=== PATIENT | male | born 1965 | race Caucasian/White ===

== ENCOUNTER 2017-06-08 20:28 | Emergency (ER) | payer OTHER ==
[2017-06-08] MEDS ORDERED: Ondansetron INJ* 2 MG/ML VIAL IV ONE (21:33)
[2017-06-08] MEDS ORDERED: NS 0.9% 1000 ML* 1,000 ML IV ONE (21:33)
[2017-06-08] MEDS ORDERED: Morphine INJ* 4 MG/ML 1 ML SYRINGE IV ONE (21:33)
--- NOTE | 2017-06-08 22:05 | RAD ---
Indication: Chest and abdominal pain. Asthma. Comparison: June 14, 2009 CT. Technique: Upright AP 2148 hours Report: Clear lungs and pleural spaces. Negative for pneumothorax. The heart, pulmonary vasculature, and mediastinal contours are unremarkable. Unremarkable osseous structures and soft tissue contours. IMPRESSION: No evidence for acute intrathoracic disease.
[2017-06-08 22:18] LABS: Hematocrit 42 % (42-52); Hemoglobin 13.6 g/dl (14.0-18.0); Mean Corpuscular HGB Conc 33 g/dl (31-36); Mean Corpuscular Hemoglobin 26 pg (27-31); Mean Corpuscular Volume 80 fL (80-94); Mean Platelet Volume 8 um3 (7.4-10.4); Red Blood Count 5.24 10^6/ul (4.0-5.4); Red Cell Distribution Width 15 % (10.5-15); White Blood Count 17.6 10^3/ul (3.5-10.8)
[2017-06-08 22:34] LABS: Troponin I 0.02 ng/mL (<0.04)
[2017-06-08 22:35] LABS: Albumin 4.2 g/dL (3.2-5.2); BUN/Creatinine Ratio 18.8 (8-20); Calcium 9.7 mg/dL (8.6-10.3); EGFR African American 131.6 (>60); EGFR Non-African American 102.3 (>60); Globulin 3.4 g/dL (2-4); Potassium 4.2 mmol/L (3.5-5.0); Total Bilirubin 0.4 mg/dL (0.2-1.0); Total Protein 7.6 g/dL (6.4-8.9)
[2017-06-09 00:54] LABS: Urine Bacteria Absent (Absent); Urine Bilirubin Negative (Negative); Urine Glucose Negative (Negative); Urine Nitrite Negative (Negative)
[2017-06-09] MEDS ORDERED: Iodixanol* (CONTRAST) 320 MG/ML 100 ML SDV IV ONE (01:07)
[2017-06-09] MEDS ORDERED: Amitriptyline TAB* 10 MG ONE (03:41)
[2017-06-09] MEDS ORDERED: Amitriptyline TAB* 10 MG PO ONE (03:44)
[2017-06-09 04:03] VITALS: BP 143/83
--- NOTE | 2017-06-09 04:22 | ED ---
Mya Harrison Rebecca, scribed for Genesis Franksuel on 06/08/17 at 2134 . Abdominal Pain/Male - HPI Summary HPI Summary: Pt is a 51 y/o M BIBA who presents to ED c/o abdominal pain. Pain is diffuse and began upon waking up, at its worst tonight between 1730 and 1930 when it radiated to the chest and bilateral UE. Sx aggravated and alleviated by nothing. Currently, pain is resolved, ranked 0/10 upon triage. Additionally c/o diaphoresis and N/V/D. States that he has been experiencing continuous diarrhea. No known PMHx gallbladder problems. Prior incidences of abdominal pain but without chest radiation. Additionally notes that he has been unable to tolerate any of his daily medications today. - History of Current Complaint Chief Complaint: EDChestPainROMI Stated Complaint: CHEST AND ABD PAIN Time Seen by Provider: 06/08/17 20:46 Hx Obtained From: Patient Onset/Duration: Still Present Severity Currently: None Pain Intensity: 0 Pain Scale Used: 0-10 Numeric Location: Diffuse Radiates: Yes Radiates to: Chest, Other - Bilateral UE Aggravating Factor(s): Nothing Alleviating Factor(s): Nothing Associated Signs And Symptoms: Positive: Diaphoresis, Nausea, Vomiting, Diarrhea - Allergies/Home Medications Allergies/Adverse Reactions: Allergies Allergy/AdvReac Type Severity Reaction Status Date / Time Ibuprofen Allergy Severe ABD Verified 06/08/17 20:38 PAIN/GI UPSET DECLAMYCIN Allergy Severe Anaphylatic Uncoded 06/08/17 20:38 Shock PMH/Surg Hx/FS Hx/Imm Hx Endocrine/Hematology History: Reports: Hx Diabetes Denies: Hx Thyroid Disease Cardiovascular History: Denies: Hx Hypertension, Hx Pacemaker/ICD Respiratory History: Reports: Hx Asthma Denies: Hx Chronic Obstructive Pulmonary Disease (COPD) GI History: Reports: Other GI Disorders - mild nausea Denies: Hx Ulcer Musculoskeletal History: Reports: Other Musculoskeletal History - see surgical hx Sensory History: Denies: Hx Hearing Aid Neurological History: 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, also fx skull Psychiatric History: Denies: Hx Panic Disorder - Surgical History Surgery Procedure, Year, and Place: RIGHT ANKLE SURGERY, BACK, FACE- COSMETIC RELATED TO HEAD INJURY, 2 HERNIA SURGERIES, ARM SURGERY, LEG, CRANIOTOMY W/ DRAINAGE - 30 YRS AGO AND NECK SURG RELATED TO FX - HAD TO BE IN A HALO FOR AWHILE Infectious Disease History: No Infectious Disease History: Denies: Hx Clostridium Difficile, Hx Hepatitis, Hx Human Immunodeficiency Virus (HIV), Hx of Known/Suspected MRSA, Hx Shingles, Hx Tuberculosis, Hx Known/ Suspected VRE, Hx Known/Suspected VRSA, History Other Infectious Disease, Traveled Outside the [place] in Last 30 Days - Family History Known Family History: Positive: Hypertension, Diabetes, Other - Hernias - Social History Alcohol Use: None Substance Use Type: Reports: None, Prescribed Smoking Status (MU): Former Smoker Type: Cigarettes Amount Used/How Often: A FEW CIGS/DAY Length of Time of Smoking/Using Tobacco: 32+ YEARS - TRYING TO QUIT Review of Systems Positive: Skin Diaphoresis Positive: Abdominal Pain - Diffuse with radiation to the chest and bilateral UE - resolved, Vomiting, Diarrhea, Nausea All Other Systems Reviewed And Are Negative: Yes Physical Exam - Summary Physical Exam Summary: Appearance: Well appearing, no pain distress Skin: warm, dry, reflects adequate perfusion Head/face: normal Eyes: EOMI, REGLA ENT: normal Neck: supple, nontender Respiratory: CTA, breath sounds present Cardiovascular: RRR, pulses symmetrical Abdomen: tenderness in the RLQ and RUQ, soft Bowel: present Musculoskeletal: normal, strength/ROM intact Neuro: normal, sensory motor intact, A&Ox3 Triage Information Reviewed: Yes Vital Signs On Initial Exam: Initial Vitals Temp Pulse Resp BP Pulse Ox 98.8 F 92 22 117/78 95 06/08/17 20:36 06/08/17 20:36 06/08/17 20:36 06/08/17 20:36 06/08/17 20:36 Vital Signs Reviewed: Yes - Maximus Coma Scale Coma Scale Total: 15 Diagnostics - Vital Signs Vital Signs Temp Pulse Resp BP Pulse Ox 06/08/17 20:37 94 20 117/78 95 06/08/17 20:36 98.8 F 92 22 117/78 95 - Laboratory Result Diagrams: 06/08/17 22:08 06/08/17 22:08 Lab Statement: Any lab studies that have been ordered have been reviewed, and results considered in the medical decision making process. - Radiology CXR Xray Interpretation: No Acute Changes - No evidence for acute intrathoracic disease. ED physician reviewed radiology report and agrees. Radiology Interpretation Completed By: Radiologist - CT CT Abd/Pel CT Interpretation Completed By: Radiologist - Dilated gallbladder, consider ultrasound if there is a concern for acute cholecystitis. No bowel obstruction, colitis or free air. Normal appendix. Unremarkab;e pancreas and kidneys. Negligible ascites. Hernia repair lower right pelvis. Small sclerotic focus incidentally noted in left iliac bone. ED physician reviewed radiology report and agrees. - Ultrasound No standard instances Ultrasound Interpretation Completed By: Radiologist - US Abdomen: Unremarkable gallbladder, right kidney and visualized aorta and pancreas. No biliary dilatation, common duct 3-5 mm but not well seen due to bowel gas. Coarse liver echotexture, possibly steatosis. ED physician reviewed radiology report and agrees. - EKG 2051 Cardiac Rate: NL - 83 bpm EKG Rhythm: Sinus Rhythm EKG Interpretation: No acute changes Re-Evaluation - Re-Evaluation First Eval Re-Evaluation Time: 04:01 Change: Improved Comment: Discussed results with the pt who report shtta he is feeling much better. Abdominal Pain Fem Course/Dx - Course Assessment/Plan: Pt is a 51 y/o M BIBA who presents to ED c/o diffuse abdominal pain that began upon waking up, at its worst tonight between 1730 and 1930 when it radiated to the chest and bilateral UE. Currently, pain is resolved, ranked 0 /10 upon triage. Additionally c/o diaphoresis and N/V/D. States that he has been experiencing continuous diarrhea. No known PMHx gallbladder problems. Prior incidences of abdominal pain but without chest radiation. Additionally notes that he has been unable to tolerate any of his daily medications today. CT Abd/Pel and US findings above. EKG is sinus rhythm with no acute changes. CT Abd/Pel and US results above.Patient has atypical CP, unlikely ACS at present. Advised to f/u with PCP in 3 days for a stress test as an outpatient. - Diagnoses Differential Diagnosis/HQI/PQRI: Appendicitis, Diverticulitis, Other - HI, Cholecystitis Provider Diagnoses: Atypical chest pain, Nonspecific abdominal pain - Provider Notifications Discussed Care Of Patient With: Nima Ulloa Time Discussed With Above Provider: 03:55 Instructed by Provider To: Other - Making him aware of the pt. Discharge - Discharge Plan Condition: Stable Disposition: HOME Patient Education Materials: Chest Pain (ED), Acute Abdominal Pain (ED) Referrals: Liliam Quiros MD [Primary Care Provider] - 3 Days The documentation as recorded by the Mya scott Rebecca accurately reflects the service I personally performed and the decisions made by , Casey Franks.
--- NOTE | 2017-06-09 07:13 | RAD ---
INDICATION: Right upper quadrant pain COMPARISON: None TECHNIQUE: Longitudinal and transverse scans of the right upper quadrant were obtained. Doppler interrogation of the hepatic and portal venous system was performed. FINDINGS: Liver: The liver is normal in size. There is hepatic steatosis. There are no masses . The liver measures 17 cm in cephalocaudal dimension. Vessels: There is normal hepatic and portal venous flow. Bile ducts: There is no evidence of intrahepatic or extrahepatic ductal dilatation. The common duct measures 0.3cm. Gallbladder: The gallbladder is mildly distended. The sonographic appearance of the gallbladder is otherwise normal. There is no evidence of cholelithiasis, thickening of the gallbladder wall, or pericholecystic fluid. Pancreas: The visualized pancreas appears normal Right kidney: The right kidney is normal in size and echogenicity. There are no masses or calculi. There is no evidence of hydronephrosis. The right kidney measures 13.0 x 4.2 x 5.9 cm. IVC and aorta: The aorta and superior vena cava appear normal. Fluid: There is no ascites. Other: None. IMPRESSION: 1. Mildly distended gallbladder. 2. Hepatic steatosis.
--- NOTE | 2017-06-09 09:29 | RAD ---
Indication: Abdominal pain. Contrast: Administered 141.0 ml of VISIPAQUE 320 mg/ml. CT of the abdomen and pelvis was performed after oral and IV contrast administration. The lung bases demonstrate no pleural fluid, nodules or masses. Heart is of normal size without evidence of pericardial effusion. The liver is normal in size. No focal lesions or intrahepatic duct dilatation is noted. The gallbladder is distended. The common duct demonstrates no evidence of filling defect. The pancreas demonstrates no mass or pancreatic duct dilatation. The spleen is normal in size. No adrenal lesions are noted. The kidneys demonstrate symmetric nephrograms without focal lesions. No retroperitoneal lymphadenopathy is noted. No dilated loops of bowel are noted. CT of the pelvis demonstrates no retroperitoneal or pelvic lymphadenopathy. There is diverticulosis of the sigmoid colon without evidence of diverticulitis. The patient is status post hysterectomy. The appendix is normal. No definite hernias are identified. Urinary bladder and prostate are otherwise unremarkable. IMPRESSION: No abnormal masses or fluid collections are identified. No hernias are noted. Distended gallbladder without definite evidence of pericholecystic fluid or wall thickening.
== END 2017-06-09 04:20 | disposition home or self-care (01) ==
LOC: ED 20:28
DX: R10.9 Unspecified abdominal pain (principal); R07.89 Other chest pain
CPT/HCPCS: 36415; 71010; 74177; 76705; 80053; 81003; 81015; 83605; 83690; 84484; 85025; 85610; 85730; 87086; 93005; 99284; A9270-GY; J2270; J2405; Q9967

== ENCOUNTER 2021-01-23 06:47 | Inpatient (IN) ==
[2021-01-23] MEDS ORDERED: Morphine 2 MG/ML SYRINGE IV ONE (07:26)
[2021-01-23] MEDS ORDERED: Piperacillin/Tazobac ADVAN 3.375 GM in NS 0.9% 100 ml BAG 100 ML IV ONE (07:34)
[2021-01-23] MEDS ORDERED: Piperacillin/Tazobac 3.375 GM BAG ONE (07:45)
[2021-01-23 08:00] LABS: ABS Eosinophils 0.3 10^3/ul (0-0.6); ABS Lymphocytes 2.1 10^3/ul (1.0-4.8); ABS Monocytes 0.6 10^3/ul (0-0.8); ABS Neutrophils 5.9 10^3/ul (1.5-7.7); Eosinophil % 3.7 %; Hematocrit 31 % (42-52); Hemoglobin 9.7 g/dL (14.0-18.0); Lymphocyte % 23.3 %; Mean Corpuscular HGB Conc 32 g/dL (31-36); Mean Corpuscular Hemoglobin 26 pg (27-31); Mean Corpuscular Volume 81 fL (80-94); Mean Platelet Volume 7.2 fL (7.4-10.4); Platelet Count 349 10^3/uL (150-450); Red Blood Count 3.78 10^6 /uL (4.18-5.48); Red Cell Distribution Width 17 % (10-15); White Blood Count 9.1 10^3/uL (3.5-10.8)
[2021-01-23 08:14] LABS: INR 1.02 (0.82-1.09)
[2021-01-23 08:17] LABS: Albumin 3.6 g/dL (3.2-5.2); Albumin/Globulin Ratio 1.2 (1-3); Calcium 8.3 mg/dL (8.6-10.3); EGFR African American 127.4 (>60); EGFR Non-African American 105.3 (>60); Globulin 2.9 g/dL (2-4); Potassium 3.3 mmol/L (3.5-5.0); Total Bilirubin 0.3 mg/dL (0.2-1.0); Total Protein 6.5 g/dL (6.4-8.9)
[2021-01-23] MEDS ORDERED: Dextrose 50% Syringe 50 ml 25 GM/50 ML SYRINGE IV PUSH PRN (10:30)
[2021-01-23] MEDS ORDERED: Zosyn per Pharmacy NOTE FOLLOW UP SCH (11:00)
[2021-01-23] MEDS: Morphine 2 MG/ML SYRINGE IV PRN ×2 (11:24→16:14)
[2021-01-23] MEDS: NS 0.9% 1000 ml BAG 1,000 ML IV SCH ×2 (13:19→23:31)
[2021-01-23] MEDS: ZOSYN 3.375 GM Q8H per EXTENDED INFUSION IV SCH ×3 (13:19→22:56)
[2021-01-23] MEDS: Senna TAB 8.6 mg TAB PO SCH (18:02)
[2021-01-23] MEDS: KCL 20 MEQ/100 ML IVPREMIX 20 MEQ/100 ML BAG IV SCH ×2 (18:02→22:16)
[2021-01-23] MEDS: Heparin 5000 UNITS/ML 1 mL VIAL SUBCUT SCH ×2 (21:54→22:56)
[2021-01-24] MEDS: ZOSYN 3.375 GM Q8H per EXTENDED INFUSION IV SCH ×3 (05:28→21:49)
[2021-01-24 09:17] LABS: ABS Basophils 0.1 10^3/ul (0-0.2); ABS Eosinophils 0.3 10^3/ul (0-0.6); ABS Lymphocytes 2.6 10^3/ul (1.0-4.8); ABS Monocytes 0.7 10^3/ul (0-0.8); ABS Neutrophils 4.2 10^3/ul (1.5-7.7); Eosinophil % 4.2 %; Hematocrit 25 % (42-52); Hemoglobin 7.9 g/dL (14.0-18.0); Mean Corpuscular HGB Conc 32 g/dL (31-36); Mean Corpuscular Hemoglobin 26 pg (27-31); Mean Corpuscular Volume 81 fL (80-94); Mean Platelet Volume 7.3 fL (7.4-10.4); Platelet Count 263 10^3/uL (150-450); Red Blood Count 3.04 10^6 /uL (4.18-5.48); Red Cell Distribution Width 17 % (10-15); White Blood Count 7.9 10^3/uL (3.5-10.8)
[2021-01-24] MEDS: NS 0.9% 1000 ml BAG 1,000 ML IV SCH (09:20)
[2021-01-24 09:33] LABS: Anion Gap 2 mmol/L (2-11); Blood Urea Nitrogen 12 mg/dL (6-24); CO2 Carbon Dioxide 30 mmol/L (22-32); Calcium 7.4 mg/dL (8.6-10.3); Chloride 107 mmol/L (101-111); EGFR African American 118.5 (>60); EGFR Non-African American 97.9 (>60); Glucose 83 mg/dL (70-100); Potassium 3.8 mmol/L (3.5-5.0); Sodium 139 mmol/L (135-145)
[2021-01-24 14:02] LABS: ABS Eosinophils 0.3 10^3/ul (0-0.6); ABS Monocytes 0.6 10^3/ul (0-0.8); ABS Neutrophils 4.3 10^3/ul (1.5-7.7); Eosinophil % 4.3 %; Hematocrit 26 % (42-52); Hemoglobin 8.2 g/dL (14.0-18.0); Mean Corpuscular HGB Conc 32 g/dL (31-36); Mean Corpuscular Hemoglobin 26 pg (27-31); Mean Corpuscular Volume 81 fL (80-94); Mean Platelet Volume 7.3 fL (7.4-10.4); Platelet Count 286 10^3/uL (150-450); Red Blood Count 3.21 10^6 /uL (4.18-5.48); Red Cell Distribution Width 16 % (10-15); White Blood Count 7.2 10^3/uL (3.5-10.8)
[2021-01-24] MEDS: Heparin 5000 UNITS/ML 1 mL VIAL SUBCUT SCH ×2 (14:09→21:50)
[2021-01-24 14:11] LABS: Activated Partial Thrombo Time 26.6 seconds (26.0-38.0); INR 1.07 (0.82-1.09)
[2021-01-24 14:48] LABS: EGFR African American 109.2 (>60); EGFR Non-African American 90.2 (>60)
[2021-01-24 15:03] LABS: Total Iron Binding Capacity 330 mcg/dL (250-450); Transferrin 236 mg/dL (203-362)
[2021-01-24 15:05] LABS: Ferritin 9.2 ng/mL (24-336)
[2021-01-24 15:09] LABS: Folate > 20.00 ng/mL (5.90-24.80)
[2021-01-24 15:12] LABS: Vitamin B12 71 pg/mL (180-914)
[2021-01-24 15:52] LABS: % Iron Saturation 6 % (15-55); Iron < 20 ug/dL (50-212); Unsaturated Iron Binding < 315 ug/dL
[2021-01-24] MEDS: Senna TAB 8.6 mg TAB PO SCH (17:40)
[2021-01-24] MEDS: Morphine 2 MG/ML SYRINGE IV PRN ×2 (17:43→22:12)
[2021-01-25] MEDS: Morphine 2 MG/ML SYRINGE IV PRN ×3 (02:39→22:34)
[2021-01-25 05:02] LABS: ABS Eosinophils 0.3 10^3/ul (0-0.6); ABS Lymphocytes 2.7 10^3/ul (1.0-4.8); ABS Monocytes 0.6 10^3/ul (0-0.8); ABS Neutrophils 4.1 10^3/ul (1.5-7.7); Eosinophil % 4.2 %; Hematocrit 25 % (42-52); Lymphocyte % 34.3 %; Mean Corpuscular HGB Conc 32 g/dL (31-36); Mean Corpuscular Hemoglobin 26 pg (27-31); Mean Corpuscular Volume 80 fL (80-94); Mean Platelet Volume 7.3 fL (7.4-10.4); Platelet Count 278 10^3/uL (150-450); Red Blood Count 3.12 10^6 /uL (4.18-5.48); Red Cell Distribution Width 17 % (10-15); White Blood Count 7.8 10^3/uL (3.5-10.8)
[2021-01-25] MEDS: ZOSYN 3.375 GM Q8H per EXTENDED INFUSION IV SCH ×3 (06:12→21:53)
[2021-01-25] MEDS: Heparin 5000 UNITS/ML 1 mL VIAL SUBCUT SCH ×3 (06:14→21:53)
[2021-01-25] MEDS: Senna TAB 8.6 mg TAB PO SCH (17:01)
[2021-01-25] MEDS ORDERED: Iodixanol (CONTRAST) 320 MG/ML 100 ML SDV IV ONE (18:32)
[2021-01-26 04:37] LABS: ABS Eosinophils 0.4 10^3/ul (0-0.6); ABS Lymphocytes 2.3 10^3/ul (1.0-4.8); ABS Monocytes 0.6 10^3/ul (0-0.8); ABS Neutrophils 4.5 10^3/ul (1.5-7.7); Eosinophil % 4.8 %; Hematocrit 25 % (42-52); Hemoglobin 7.9 g/dL (14.0-18.0); Mean Corpuscular HGB Conc 32 g/dL (31-36); Mean Corpuscular Hemoglobin 26 pg (27-31); Mean Corpuscular Volume 81 fL (80-94); Mean Platelet Volume 7.1 fL (7.4-10.4); Nucleated Red Blood Cells % 0.1; Platelet Count 275 10^3/uL (150-450); Red Blood Count 3.06 10^6 /uL (4.18-5.48); Red Cell Distribution Width 16 % (10-15); White Blood Count 7.8 10^3/uL (3.5-10.8)
[2021-01-26 04:54] LABS: C Reactive Protein 11.95 mg/L (<8.01); Calcium 7.9 mg/dL (8.6-10.3); EGFR African American 90.1 (>60); EGFR Non-African American 74.4 (>60); Potassium 3.6 mmol/L (3.5-5.0)
[2021-01-26] MEDS: ZOSYN 3.375 GM Q8H per EXTENDED INFUSION IV SCH ×3 (05:39→21:29)
[2021-01-26] MEDS: Heparin 5000 UNITS/ML 1 mL VIAL SUBCUT SCH ×3 (05:39→21:29)
[2021-01-26] MEDS: Senna TAB 8.6 mg TAB PO SCH (18:20)
[2021-01-26] MEDS: Morphine 2 MG/ML SYRINGE IV PRN (21:39)
[2021-01-27 04:56] LABS: ABS Eosinophils 0.4 10^3/ul (0-0.6); ABS Lymphocytes 2.5 10^3/ul (1.0-4.8); ABS Monocytes 0.6 10^3/ul (0-0.8); ABS Neutrophils 3.6 10^3/ul (1.5-7.7); Eosinophil % 5.6 %; Hematocrit 25 % (42-52); Hemoglobin 8.1 g/dL (14.0-18.0); Lymphocyte % 34.8 %; Mean Corpuscular HGB Conc 32 g/dL (31-36); Mean Corpuscular Hemoglobin 26 pg (27-31); Mean Corpuscular Volume 80 fL (80-94); Mean Platelet Volume 7.6 fL (7.4-10.4); Platelet Count 293 10^3/uL (150-450); Red Blood Count 3.13 10^6 /uL (4.18-5.48); Red Cell Distribution Width 17 % (10-15); White Blood Count 7.1 10^3/uL (3.5-10.8)
[2021-01-27] MEDS: Heparin 5000 UNITS/ML 1 mL VIAL SUBCUT SCH ×2 (05:32→13:48)
[2021-01-27] MEDS: ZOSYN 3.375 GM Q8H per EXTENDED INFUSION IV SCH ×2 (05:32→13:45)
[2021-01-27] MEDS: Morphine 2 MG/ML SYRINGE IV PRN (10:50)
[2021-01-27 11:16] VITALS: BP 123/67
== END 2021-01-27 17:30 | disposition home or self-care (01) | DRG 349 ==
LOC: ED 06:47 → SSU 10:22
PROVIDERS: ADMIT Hospitalist; ATTEND Internal Medicine

== ENCOUNTER 2022-02-27 18:48 | Inpatient (IN) ==
[2022-02-27 20:35] LABS: ABS Eosinophils 0.2 10^3/ul (0-0.6); ABS Lymphocytes 1.9 10^3/ul (1.0-4.8); ABS Monocytes 1.2 10^3/ul (0-0.8); ABS Neutrophils 16.5 10^3/ul (1.5-7.7); Eosinophil % 1.2 %; Hematocrit 28 % (42-52); Hemoglobin 8.6 g/dL (14.0-18.0); Lymphocyte % 9.5 %; Mean Corpuscular HGB Conc 31 g/dL (31-36); Mean Corpuscular Hemoglobin 21 pg (27-31); Mean Corpuscular Volume 67 fL (80-94); Mean Platelet Volume 7.5 fL (7.4-10.4); Platelet Count 468 10^3/uL (150-450); Red Blood Count 4.16 10^6 /uL (4.18-5.48); Red Cell Distribution Width 20 % (10-15); White Blood Count 19.9 10^3/uL (3.5-10.8)
[2022-02-27 21:22] LABS: ALT 5 U/L (7-52); AST 17 U/L (13-39); Albumin 3.1 g/dL (3.2-5.2); Albumin/Globulin Ratio 0.7 (1-3); Alkaline Phosphatase 81 U/L (35-149); Anion Gap 6 mmol/L (2-11); Blood Urea Nitrogen 17 mg/dL (6-24); CO2 Carbon Dioxide 28 mmol/L (22-32); Calcium 8.6 mg/dL (8.6-10.3); Chloride 96 mmol/L (101-111); Globulin 4.4 g/dL (2-4); Glucose 117 mg/dL (70-100); Potassium 3.5 mmol/L (3.5-5.0); Sodium 130 mmol/L (135-145); Total Protein 7.5 g/dL (6.4-8.9); eGFR CKD-EPI 88.9 (>60)
[2022-02-27 21:25] LABS: CRP High Sensitivity > 80.00 mg/L (<2.00)
[2022-02-27] MEDS ORDERED: Piperacillin/Tazobac ADVAN 3.375 GM in NS 0.9% 100 ml BAG 100 ML IV ONE (21:59)
[2022-02-27] MEDS ORDERED: Vancomycin 1,250 MG in NS 0.9% 250 ml 250 ML IVPB ONE (22:00)
[2022-02-27] MEDS ORDERED: Lactated Ringers 1000 ml BAG 1,000 ML IV ONE (22:00)
[2022-02-27] MEDS ORDERED: NS 0.9% 1000 ml BAG 1,000 ML IV ONE (22:02)
[2022-02-27] MEDS ORDERED: Ondansetron 4 mg VIAL 2 MG/ML 2 ml VIAL IV ONE (22:03)
[2022-02-27] MEDS ORDERED: Zosyn per Pharmacy NOTE FOLLOW UP SCH (23:45)
[2022-02-27 23:48] LABS: Urine Appearance Clear; Urine Bilirubin Negative (Negative); Urine Blood 2+ (Negative); Urine Color Straw; Urine Glucose Negative (Negative); Urine Ketones Negative (Negative); Urine Nitrite Negative (Negative); Urine Protein Negative (Negative); Urine Specific Gravity 1.005 (1.002-1.030); Urine Urobilinogen Negative (Negative)
[2022-02-27] MEDS ORDERED: Ondansetron ODT 4 mg TAB 4 MG TAB SL PRN (23:58)
[2022-02-28 00:01] LABS: Urine Bacteria Absent (Absent); Urine Red Blood Cell Trace(0-2/hpf) (Absent); Urine Squamous Epithelial Cell Present (Absent); Urine White Blood Cell Trace(0-5/hpf) (Absent)
[2022-02-28] MEDS: Enoxaparin 40 MG/0.4 ML SYR SUBCUT SCH ×2 (00:33→22:12)
[2022-02-28] MEDS ORDERED: Famotidine IV 10 MG/ML 2 ml VIAL (20 mg) IV SLOW PU ONE (01:01)
[2022-02-28] MEDS ORDERED: Dextrose 50% Syringe 50 ml 25 GM/50 ML SYRINGE IV PUSH PRN (01:28)
[2022-02-28] MEDS ORDERED: HYDROmorphone 1 MG/1 ML SYRINGE IV PRN (01:33)
[2022-02-28] MEDS ORDERED: Lactated Ringers 1000 ml BAG 1,000 ML IV SCH (02:00)
[2022-02-28] MEDS ORDERED: PIPERACILLIN IV ×2 (02:15→05:00)
[2022-02-28] MEDS ORDERED: TAZOBACTAM IV ×2 (02:15→05:00)
[2022-02-28] MEDS ORDERED: Lorazepam PYXIS KEY PRN (02:50)
[2022-02-28] MEDS ORDERED: LORazepam 2 mg VIAL 1 ml IV PUSH PRN (02:50)
[2022-02-28 03:06] LABS: Creatine Kinase 102 U/L (10-223)
[2022-02-28] MEDS: NS 0.9% 1000 ml BAG 1,000 ML IV SCH (04:25)
[2022-02-28 05:11] LABS: Urine Osmo 184 mOsm/kg (150-1150)
[2022-02-28] MEDS ORDERED: ZOSYN 3.375 GM Q8H per EXTENDED INFUSION IV SCH (08:30)
[2022-02-28] MEDS ORDERED: ZOSYN 3.375 GM Q6H IV SCH (18:00)
[2022-02-28] MEDS ORDERED: Vancomycin 1500 MG IV - x ONCE IVPB ONE (18:30)
[2022-02-28] MEDS ORDERED: Vancomycin per Pharmacy 1 EA NOTE FOLLOW UP PRN (18:46)
[2022-02-28] MEDS: Piperacillin/Tazobactam VIAL 4.5 GM in NS 0.9% 100 ml BAG 100 ML IVPB SCH (21:16)
[2022-03-01] MEDS: NS 0.9% 1000 ml BAG 1,000 ML IV SCH (01:09)
[2022-03-01] MEDS: Piperacillin/Tazobactam VIAL 4.5 GM in NS 0.9% 100 ml BAG 100 ML IVPB SCH ×4 (01:09→17:31)
[2022-03-01] MEDS: Vancomycin 1000 MG in NS 0.9% 250 ML IVPB SCH ×3 (02:37→17:23)
[2022-03-01 06:12] LABS: ABS Basophils 0.1 10^3/ul (0-0.2); ABS Eosinophils 0.3 10^3/ul (0-0.6); ABS Monocytes 0.8 10^3/ul (0-0.8); ABS Neutrophils 4.8 10^3/ul (1.5-7.7); Eosinophil % 4.3 %; Hematocrit 24 % (42-52); Hemoglobin 7.5 g/dL (14.0-18.0); Lymphocyte % 25.1 %; Mean Corpuscular HGB Conc 32 g/dL (31-36); Mean Corpuscular Hemoglobin 22 pg (27-31); Mean Corpuscular Volume 68 fL (80-94); Mean Platelet Volume 7.9 fL (7.4-10.4); Platelet Count 376 10^3/uL (150-450); Red Blood Count 3.47 10^6 /uL (4.18-5.48); Red Cell Distribution Width 20 % (10-15)
[2022-03-01 06:23] LABS: Anion Gap 6 mmol/L (2-11); Blood Urea Nitrogen 16 mg/dL (6-24); CO2 Carbon Dioxide 29 mmol/L (22-32); Calcium 7.8 mg/dL (8.6-10.3); Chloride 106 mmol/L (101-111); Glucose 98 mg/dL (70-100); Magnesium 1.5 mg/dL (1.9-2.7); Potassium 4.2 mmol/L (3.5-5.0); Sodium 141 mmol/L (135-145); eGFR CKD-EPI 85.8 (>60)
[2022-03-01] MEDS ORDERED: Magnesium Sulf 4 GM/100 ML IV 4,000 MG/100 ML BAG IVPB ONE (06:28)
[2022-03-01 07:27] LABS: Total Iron Binding Capacity 231 mcg/dL (250-450); Transferrin 165 mg/dL (203-362)
[2022-03-01 07:31] LABS: % Iron Saturation 9 % (15-55); Iron < 20 ug/dL (50-212); Unsaturated Iron Binding 211 ug/dL
[2022-03-01 07:48] LABS: Ferritin 77.3 ng/mL (24-336)
[2022-03-01] MEDS ORDERED: Senna TAB 8.6 mg TAB PO PRN (08:54)
[2022-03-01] MEDS ORDERED: Magnesium Hydroxide LIQ 30 ML UDC PO PRN (08:54)
[2022-03-01] MEDS ORDERED: Polyethylene Glycol 3350 17 GM PACKET PO PRN (08:54)
[2022-03-01] MEDS: Magnesium Hydroxide LIQ 30 ML UDC PO SCH ×2 (12:37→20:48)
[2022-03-01] MEDS: Enoxaparin 40 MG/0.4 ML SYR SUBCUT SCH (20:48)
[2022-03-01] MEDS: HYDROmorphone 1 MG/1 ML SYRINGE IV PRN (21:52)
[2022-03-02] MEDS: Piperacillin/Tazobactam VIAL 4.5 GM in NS 0.9% 100 ml BAG 100 ML IVPB SCH ×2 (01:11→05:46)
[2022-03-02] MEDS: Vancomycin 1000 MG in NS 0.9% 250 ML IVPB SCH ×2 (02:52→10:54)
[2022-03-02 05:34] LABS: Calcium 7.9 mg/dL (8.6-10.3); Magnesium 1.9 mg/dL (1.9-2.7); Potassium 4.7 mmol/L (3.5-5.0); eGFR CKD-EPI 98.2 (>60)
[2022-03-02 05:42] LABS: Hematocrit 24 % (42-52); Hemoglobin 7.3 g/dL (14.0-18.0); Mean Corpuscular HGB Conc 31 g/dL (31-36); Mean Corpuscular Hemoglobin 21 pg (27-31); Mean Corpuscular Volume 68 fL (80-94); Mean Platelet Volume 7.7 fL (7.4-10.4); Platelet Count 360 10^3/uL (150-450); Red Blood Count 3.49 10^6 /uL (4.18-5.48); Red Cell Distribution Width 20 % (10-15); White Blood Count 6.9 10^3/uL (3.5-10.8)
[2022-03-02] MEDS ORDERED: Vancomycin Trough Check NOTE FOLLOW UP ONE (09:30)
[2022-03-02] MEDS: Magnesium Hydroxide LIQ 30 ML UDC PO SCH ×2 (09:46→21:18)
[2022-03-02] MEDS: HYDROmorphone 1 MG/1 ML SYRINGE IV PRN ×3 (10:05→21:18)
[2022-03-02] MEDS ORDERED: NS 0.9% 500 ml BAG 500 ML IV ONE (11:04)
[2022-03-02] MEDS ORDERED: ZOSYN 3.375 GM Q6H - Intermittant 30 min Infusion IV SCH (12:00)
[2022-03-02] MEDS ORDERED: Vancomycin per Pharmacy 1 EA NOTE FOLLOW UP PRN (13:23)
[2022-03-02] MEDS ORDERED: Bupivacaine 0.25% SDV PF 10 ML VIAL INJ ONE (13:27)
[2022-03-02] MEDS: Cefepime 2 GM in Dextrose 2 GM/50 ML BAG IV SCH (15:11)
[2022-03-02] MEDS ORDERED: Lidocaine 1% VIAL 10 MG/ML VIAL ONE (15:11)
[2022-03-02] MEDS: Vancomycin 750 MG in NS 0.9% 250 ML IVPB SCH (19:29)
[2022-03-03] MEDS: Cefepime 2 GM in Dextrose 2 GM/50 ML BAG IV SCH ×2 (02:59→15:06)
[2022-03-03] MEDS: Vancomycin 750 MG in NS 0.9% 250 ML IVPB SCH ×3 (04:14→21:33)
[2022-03-03] MEDS: Enoxaparin 40 MG/0.4 ML SYR SUBCUT SCH (05:44)
[2022-03-03] MEDS: HYDROmorphone 1 MG/1 ML SYRINGE IV PRN ×2 (05:50→15:08)
[2022-03-03 06:45] LABS: Calcium 8.2 mg/dL (8.6-10.3); Magnesium 1.7 mg/dL (1.9-2.7); Potassium 4.7 mmol/L (3.5-5.0); eGFR CKD-EPI 100.9 (>60)
[2022-03-03 06:56] LABS: ABS Eosinophils 0.5 10^3/ul (0-0.6); ABS Lymphocytes 1.9 10^3/ul (1.0-4.8); ABS Monocytes 0.9 10^3/ul (0-0.8); ABS Neutrophils 4.4 10^3/ul (1.5-7.7); Eosinophil % 5.8 %; Hematocrit 25 % (42-52); Hemoglobin 7.6 g/dL (14.0-18.0); Lymphocyte % 24.4 %; Mean Corpuscular HGB Conc 31 g/dL (31-36); Mean Corpuscular Hemoglobin 21 pg (27-31); Mean Corpuscular Volume 68 fL (80-94); Mean Platelet Volume 7.7 fL (7.4-10.4); Platelet Count 436 10^3/uL (150-450); Red Blood Count 3.63 10^6 /uL (4.18-5.48); Red Cell Distribution Width 20 % (10-15); White Blood Count 7.8 10^3/uL (3.5-10.8)
[2022-03-03] MEDS: Magnesium Hydroxide LIQ 30 ML UDC PO SCH (07:44)
[2022-03-03] MEDS: Lidocaine PATCH 5% PATCH TRANSDERM SCH ×2 (10:31→10:35)
[2022-03-03] MEDS: Iron Sucrose 200 MG in NS 0.9% 100 ml BAG 100 ML IVPB SCH (10:31)
[2022-03-04] MEDS: Cefepime 2 GM in Dextrose 2 GM/50 ML BAG IV SCH (03:00)
[2022-03-04] MEDS: Vancomycin 750 MG in NS 0.9% 250 ML IVPB SCH (05:15)
[2022-03-04] MEDS: Enoxaparin 40 MG/0.4 ML SYR SUBCUT SCH (06:43)
[2022-03-04 08:01] LABS: Hematocrit 28 % (42-52); Hemoglobin 8.5 g/dL (14.0-18.0); Mean Corpuscular HGB Conc 31 g/dL (31-36); Mean Corpuscular Hemoglobin 21 pg (27-31); Mean Corpuscular Volume 67 fL (80-94); Mean Platelet Volume 7.2 fL (7.4-10.4); Platelet Count 527 10^3/uL (150-450); Red Blood Count 4.09 10^6 /uL (4.18-5.48); Red Cell Distribution Width 20 % (10-15)
[2022-03-04 08:15] LABS: Blood Urea Nitrogen 10 mg/dL (6-24); CO2 Carbon Dioxide 31 mmol/L (22-32); Calcium 8.4 mg/dL (8.6-10.3); Chloride 101 mmol/L (101-111); Glucose 85 mg/dL (70-100); Magnesium 1.8 mg/dL (1.9-2.7); Sodium 138 mmol/L (135-145); eGFR CKD-EPI 99.5 (>60)
[2022-03-04] MEDS: Lidocaine PATCH 5% PATCH TRANSDERM SCH (08:18)
[2022-03-04 08:22] LABS: Anion Gap 6 mmol/L (2-11)
[2022-03-04] MEDS: Iron Sucrose 200 MG in NS 0.9% 100 ml BAG 100 ML IVPB SCH (08:58)
[2022-03-04] MEDS ORDERED: Vancomycin Trough Check NOTE FOLLOW UP ONE (11:30)
[2022-03-04 11:33] VITALS: BP 153/81
[2022-03-04] MEDS ORDERED: Nicotine PATCH 14 MG/24 HR PATCH TRANSDERM SCH (12:00)
[2022-03-04 12:37] LABS: Potassium Redraw 4.2 mmol/L (3.5-5.0); Vancomycin Trough 21.1 mcg/mL
[2022-03-04] MEDS ORDERED: Vancomycin 1000 MG in NS 0.9% 250 ML IVPB SCH (21:00)
[2022-03-06] MEDS ORDERED: Vancomycin Trough Check NOTE FOLLOW UP ONE (08:30)
== END 2022-03-04 15:15 | disposition home or self-care (01) | DRG 314 ==
LOC: ED 18:48 → SUATTDRO 02-28 00:03 → EDHOLD 02-28 00:03 → SSU 02-28 02:12
PROVIDERS: ADMIT Internal Medicine; ATTEND Internal Medicine

== ENCOUNTER 2022-07-15 11:25 | Inpatient (IN) ==
[2022-07-15 18:13] LABS: ABS Basophils 0.1 10^3/ul (0-0.2); ABS Eosinophils 0.1 10^3/ul (0-0.6); ABS Lymphocytes 1.8 10^3/ul (1.0-4.8); ABS Monocytes 1.2 10^3/ul (0-0.8); ABS Neutrophils 13.2 10^3/ul (1.5-7.7); Eosinophil % 0.9 %; Hematocrit 28 % (42-52); Hemoglobin 8.5 g/dL (14.0-18.0); Lymphocyte % 10.9 %; Mean Corpuscular HGB Conc 30 g/dL (31-36); Mean Corpuscular Hemoglobin 22 pg (27-31); Mean Corpuscular Volume 71 fL (80-94); Mean Platelet Volume 6.8 fL (7.4-10.4); Platelet Count 846 10^3/uL (150-450); Red Blood Count 3.96 10^6 /uL (4.18-5.48); Red Cell Distribution Width 18 % (10-15); White Blood Count 16.5 10^3/uL (3.5-10.8)
[2022-07-15 18:48] LABS: ALT 20 U/L (7-52); AST 69 U/L (13-39); Albumin 2.4 g/dL (3.2-5.2); Albumin/Globulin Ratio 0.5 (1-3); Alkaline Phosphatase 187 U/L (35-149); Anion Gap 6 mmol/L (2-11); Blood Urea Nitrogen 12 mg/dL (6-24); CO2 Carbon Dioxide 32 mmol/L (22-32); Calcium 8.2 mg/dL (8.6-10.3); Chloride 99 mmol/L (101-111); Globulin 4.4 g/dL (2-4); Glucose 99 mg/dL (70-100); Potassium 4.2 mmol/L (3.5-5.0); Sodium 137 mmol/L (135-145); Total Protein 6.8 g/dL (6.4-8.9); eGFR CKD-EPI 106.6 (>60)
[2022-07-15] MEDS ORDERED: metroNIDAZOLE IV 500 MG/100ML 500 MG/100 ML BAG IVPB ONE (18:48)
[2022-07-15] MEDS ORDERED: Cefepime 2 GM in Dextrose 2 GM/50 ML BAG IV ONE (18:48)
[2022-07-15] MEDS ORDERED: Vancomycin 1,250 MG in NS 0.9% 250 ml 250 ML IVPB ONE (19:00)
[2022-07-15] MEDS ORDERED: Ondansetron 4 mg VIAL 2 MG/ML 2 ml VIAL IV ONE (20:54)
[2022-07-15] MEDS ORDERED: Morphine 10 MG/ML VIAL (1 ml) IV ONE (20:54)
[2022-07-15] MEDS ORDERED: Dextrose 50% Syringe 50 ml 25 GM/50 ML SYRINGE IV PUSH PRN (20:58)
[2022-07-15] MEDS ORDERED: Albuterol 2.5mg/3 ml (0.083%) NEB.SOLN INH PRN (21:00)
[2022-07-15] MEDS: Enoxaparin 40 MG/0.4 ML SYR SUBCUT SCH (21:28)
[2022-07-15] MEDS ORDERED: Iodixanol (CONTRAST) 320 MG/ML 100 ML SDV IV ONE (21:49)
[2022-07-15 23:53] LABS: TSH Ultra Thyroid Stim Horm 0.79 mcIU/mL (0.34-5.60)
[2022-07-16 00:52] LABS: Total Iron Binding Capacity 188 mcg/dL (250-450); Transferrin 134 mg/dL (203-362)
[2022-07-16 00:56] LABS: % Iron Saturation 11 % (15-55); Iron < 20 ug/dL (50-212); Unsaturated Iron Binding 168 ug/dL
[2022-07-16] MEDS ORDERED: Lactated Ringers 1000 ml BAG 1,000 ML IV SCH (01:00)
[2022-07-16] MEDS ORDERED: Vancomycin per Pharmacy 1 EA NOTE FOLLOW UP PRN (02:24)
[2022-07-16] MEDS: Vancomycin 1,250 MG in NS 0.9% 250 ml 250 ML IVPB SCH ×3 (04:59→22:51)
[2022-07-16 05:38] LABS: Calcium 7.4 mg/dL (8.6-10.3); Potassium 3.6 mmol/L (3.5-5.0)
[2022-07-16 05:40] LABS: ABS Eosinophils 0.2 10^3/ul (0-0.6); ABS Lymphocytes 1.6 10^3/ul (1.0-4.8); ABS Monocytes 1.1 10^3/ul (0-0.8); ABS Neutrophils 8.3 10^3/ul (1.5-7.7); Eosinophil % 1.8 %; Hematocrit 22 % (42-52); Hemoglobin 6.6 g/dL (14.0-18.0); Lymphocyte % 14.6 %; Mean Corpuscular HGB Conc 30 g/dL (31-36); Mean Corpuscular Hemoglobin 21 pg (27-31); Mean Corpuscular Volume 70 fL (80-94); Mean Platelet Volume 6.9 fL (7.4-10.4); Platelet Count 613 10^3/uL (150-450); Red Blood Count 3.15 10^6 /uL (4.18-5.48); Red Cell Distribution Width 18 % (10-15); White Blood Count 11.3 10^3/uL (3.5-10.8)
[2022-07-16] MEDS ORDERED: Vancomycin 1,000 MG in NS 0.9% 250 ml 250 ML IVPB SCH (06:00)
[2022-07-16] MEDS ORDERED: Cefepime 1 GM in Dextrose 1 GM/50 ML BAG IV SCH (08:00)
[2022-07-16] MEDS ORDERED: Cefepime ADVAN 1 GM in NS 0.9% 50 ML 50 ML IVPB SCH (08:00)
[2022-07-16 09:36] LABS: Ferritin 211.1 ng/mL (24-336)
[2022-07-16 09:48] LABS: Hematocrit 23 % (42-52); Hemoglobin 7.1 g/dL (14.0-18.0); Mean Corpuscular HGB Conc 31 g/dL (31-36); Mean Corpuscular Hemoglobin 21 pg (27-31); Mean Corpuscular Volume 70 fL (80-94); Mean Platelet Volume 6.7 fL (7.4-10.4); Platelet Count 656 10^3/uL (150-450); Red Blood Count 3.32 10^6 /uL (4.18-5.48); Red Cell Distribution Width 18 % (10-15); White Blood Count 12.5 10^3/uL (3.5-10.8)
[2022-07-16] MEDS ORDERED: Dextrose 50% Syringe 50 ml 25 GM/50 ML SYRINGE IV PUSH PRN (10:22)
[2022-07-16] MEDS: LACTATED RINGERS IV SCH ×2 (12:27→14:19)
[2022-07-16] MEDS: metroNIDAZOLE IV 500 MG/100ML 500 MG/100 ML BAG IVPB SCH ×2 (12:28→18:38)
[2022-07-16] MEDS: fentaNYL 100 mcg/2 ml 50 MCG/ML VIAL IV SLOW PU PRN ×3 (12:50→21:39)
[2022-07-16] MEDS ORDERED: Potassium Chlor 20 meq TAB.ER PO ONE (14:07)
[2022-07-16 14:30] LABS: Magnesium 1.6 mg/dL (1.9-2.7)
[2022-07-16] MEDS ORDERED: Magnesium Sulf 4 GM/100 ML IV 4,000 MG/100 ML BAG IVPB ONE (17:04)
[2022-07-16] MEDS: Cefepime 1 GM in Dextrose 1 GM/50 ML BAG IV SCH (17:43)
[2022-07-16 20:17] LABS: Body Fluid Source Synovial Fluid
[2022-07-16 20:18] LABS: Body Fluid Appearance Bloody; Body Fluid Color Pink
[2022-07-16 20:27] LABS: Body Fluid WBC 34387 /mcL
[2022-07-16] MEDS ORDERED: Vancomycin Trough Check NOTE FOLLOW UP ONE (20:30)
[2022-07-16 20:52] LABS: Body Fluid Meta 2 %; Body Fluid Mono 1 %; Body Fluid Total Cells Counted 200
[2022-07-16] MEDS: Enoxaparin 40 MG/0.4 ML SYR SUBCUT SCH (21:07)
[2022-07-16 21:33] LABS: Vancomycin Trough 16.3 mcg/mL; eGFR CKD-EPI 106.6 (>60)
[2022-07-17] MEDS: metroNIDAZOLE IV 500 MG/100ML 500 MG/100 ML BAG IVPB SCH ×2 (01:49→13:36)
[2022-07-17] MEDS: Cefepime 1 GM in Dextrose 1 GM/50 ML BAG IV SCH ×2 (04:43→22:38)
[2022-07-17] MEDS: Vancomycin 1,250 MG in NS 0.9% 250 ml 250 ML IVPB SCH (05:38)
[2022-07-17 06:22] LABS: Calcium 7.3 mg/dL (8.6-10.3); Magnesium 2.1 mg/dL (1.9-2.7); Potassium 4.2 mmol/L (3.5-5.0); eGFR CKD-EPI 106.6 (>60)
[2022-07-17 06:28] LABS: ABS Basophils 0.1 10^3/ul (0-0.2); ABS Eosinophils 0.2 10^3/ul (0-0.6); ABS Lymphocytes 1.7 10^3/ul (1.0-4.8); ABS Neutrophils 6.9 10^3/ul (1.5-7.7); Eosinophil % 2.3 %; Hematocrit 23 % (42-52); Hemoglobin 7.2 g/dL (14.0-18.0); Lymphocyte % 17.3 %; Mean Corpuscular HGB Conc 31 g/dL (31-36); Mean Corpuscular Hemoglobin 22 pg (27-31); Mean Corpuscular Volume 69 fL (80-94); Mean Platelet Volume 7.2 fL (7.4-10.4); Platelet Count 617 10^3/uL (150-450); Red Blood Count 3.33 10^6 /uL (4.18-5.48); Red Cell Distribution Width 18 % (10-15); White Blood Count 9.9 10^3/uL (3.5-10.8)
[2022-07-17] MEDS: fentaNYL 100 mcg/2 ml 50 MCG/ML VIAL IV SLOW PU PRN ×3 (08:20→22:28)
[2022-07-17] MEDS ORDERED: Buffered Lidocaine 1% SYRIN 1 ml INTRADERM ONE (10:49)
[2022-07-17] MEDS ORDERED: Lactated Ringers 1000 ml BAG 1,000 ML IV SCH (11:00)
[2022-07-17] MEDS: Vancomycin 1,500 MG in NS 0.9% 250 ml 250 ML IVPB SCH ×2 (15:33→22:35)
[2022-07-17] MEDS ORDERED: fentaNYL 100 mcg/2 ml 50 MCG/ML VIAL ONE (16:50)
[2022-07-17] MEDS ORDERED: Lidocaine 2% PF 5 ML VIAL ONE (16:50)
[2022-07-17] MEDS ORDERED: Midazolam 2 mg/2 ml VIAL 1 mg/ml 2 ml VIAL (2 mg) ONE (16:50)
[2022-07-17] MEDS ORDERED: Dexamethasone IV 4 MG/ML VIAL 1 ml VIAL ONE (16:51)
[2022-07-17] MEDS ORDERED: Propofol 10 MG/ML 20 ML BTL ONE (16:51)
[2022-07-17] MEDS ORDERED: Ondansetron 4 mg VIAL 2 MG/ML 2 ml VIAL ONE (16:51)
[2022-07-17] MEDS ORDERED: fentaNYL 100 mcg/2 ml 50 MCG/ML VIAL IV PRN (17:51)
[2022-07-17] MEDS ORDERED: Ondansetron 4 mg VIAL 2 MG/ML 2 ml VIAL IV PRN (17:51)
[2022-07-17] MEDS ORDERED: Naloxone 0.4 mg VIAL 0.4 mg/ml 1 ml VIAL IV PRN (17:51)
[2022-07-17] MEDS: Enoxaparin 40 MG/0.4 ML SYR SUBCUT SCH (22:26)
[2022-07-18] MEDS: metroNIDAZOLE IV 500 MG/100ML 500 MG/100 ML BAG IVPB SCH ×2 (01:34→12:13)
[2022-07-18] MEDS: fentaNYL 100 mcg/2 ml 50 MCG/ML VIAL IV SLOW PU PRN ×3 (02:32→12:14)
[2022-07-18] MEDS: Cefepime 1 GM in Dextrose 1 GM/50 ML BAG IV SCH ×2 (04:09→16:18)
[2022-07-18] MEDS: Vancomycin 1,500 MG in NS 0.9% 250 ml 250 ML IVPB SCH (05:16)
[2022-07-18 05:56] LABS: ABS Lymphocytes 0.6 10^3/ul (1.0-4.8); ABS Monocytes 0.4 10^3/ul (0-0.8); ABS Neutrophils 7.3 10^3/ul (1.5-7.7); Hematocrit 25 % (42-52); Hemoglobin 7.5 g/dL (14.0-18.0); Lymphocyte % 7.4 %; Mean Corpuscular HGB Conc 30 g/dL (31-36); Mean Corpuscular Hemoglobin 21 pg (27-31); Mean Corpuscular Volume 70 fL (80-94); Mean Platelet Volume 7.3 fL (7.4-10.4); Platelet Count 631 10^3/uL (150-450); Red Cell Distribution Width 18 % (10-15); White Blood Count 8.3 10^3/uL (3.5-10.8)
[2022-07-18 06:10] LABS: Calcium 7.4 mg/dL (8.6-10.3); eGFR CKD-EPI 93.3 (>60)
[2022-07-18 06:56] LABS: Erythrocyte Sed Rate 85 mm/Hr (0-19)
[2022-07-18] MEDS ORDERED: Nasal Wash (NF) 473 ML BTL INTRANASAL PRN (09:00)
[2022-07-18] MEDS ORDERED: Senna TAB 8.6 mg TAB PO PRN (11:01)
[2022-07-18] MEDS: Polyethylene Glycol 3350 17 GM PACKET PO SCH ×2 (12:15→20:17)
[2022-07-18] MEDS ORDERED: Vancomycin Trough Check NOTE FOLLOW UP ONE (13:30)
[2022-07-18] MEDS: Enoxaparin 40 MG/0.4 ML SYR SUBCUT SCH (20:17)
[2022-07-19] MEDS: metroNIDAZOLE IV 500 MG/100ML 500 MG/100 ML BAG IVPB SCH ×2 (00:34→17:23)
[2022-07-19] MEDS: fentaNYL 100 mcg/2 ml 50 MCG/ML VIAL IV SLOW PU PRN ×3 (00:50→20:17)
[2022-07-19] MEDS: Cefepime 1 GM in Dextrose 1 GM/50 ML BAG IV SCH ×2 (04:01→20:30)
[2022-07-19] MEDS: Vancomycin 1,250 MG in NS 0.9% 250 ml 250 ML IVPB SCH ×3 (05:47→21:38)
[2022-07-19 07:28] LABS: ABS Basophils 0.1 10^3/ul (0-0.2); ABS Eosinophils 0.1 10^3/ul (0-0.6); ABS Lymphocytes 2.5 10^3/ul (1.0-4.8); ABS Neutrophils 8.9 10^3/ul (1.5-7.7); Hematocrit 23 % (42-52); Hemoglobin 7.3 g/dL (14.0-18.0); Lymphocyte % 19.6 %; Mean Corpuscular HGB Conc 31 g/dL (31-36); Mean Corpuscular Hemoglobin 22 pg (27-31); Mean Corpuscular Volume 70 fL (80-94); Mean Platelet Volume 7.3 fL (7.4-10.4); Platelet Count 681 10^3/uL (150-450); Red Blood Count 3.34 10^6 /uL (4.18-5.48); Red Cell Distribution Width 18 % (10-15); White Blood Count 12.6 10^3/uL (3.5-10.8)
[2022-07-19 07:57] LABS: C Reactive Protein 70.07 mg/L (<8.01); Calcium 7.6 mg/dL (8.6-10.3); Magnesium 1.8 mg/dL (1.9-2.7); Potassium 4.5 mmol/L (3.5-5.0)
[2022-07-19] MEDS: Polyethylene Glycol 3350 17 GM PACKET PO SCH ×2 (08:30→23:20)
[2022-07-19 09:36] LABS: Erythrocyte Sed Rate 93 mm/Hr (0-19)
[2022-07-19] MEDS ORDERED: Magnesium Sulfate IV 3 GM in NS 0.9% 100 ml BAG 100 ML IVPB ONE (09:55)
[2022-07-19] MEDS ORDERED: Magnesium Sulfate 2 GM IV (Premix) IVPB ONE (10:15)
[2022-07-19] MEDS ORDERED: Magnesium Sulfate 1 GM IV 1 GM/100 ML BAG IV ONE (11:15)
[2022-07-19] MEDS ORDERED: metroNIDAZOLE IV 500 MG/100ML 500 MG/100 ML BAG IVPB SCH (18:00)
[2022-07-19] MEDS ORDERED: Vancomycin 1,250 MG in NS 0.9% 250 ml 250 ML IVPB SCH (18:00)
[2022-07-19] MEDS: Enoxaparin 40 MG/0.4 ML SYR SUBCUT SCH (20:17)
[2022-07-20] MEDS: Cefepime 1 GM in Dextrose 1 GM/50 ML BAG IV SCH ×2 (04:41→17:43)
[2022-07-20 06:00] LABS: ABS Basophils 0.1 10^3/ul (0-0.2); ABS Eosinophils 0.3 10^3/ul (0-0.6); ABS Lymphocytes 2.5 10^3/ul (1.0-4.8); ABS Monocytes 1.1 10^3/ul (0-0.8); ABS Neutrophils 7.9 10^3/ul (1.5-7.7); Eosinophil % 2.1 %; Hematocrit 25 % (42-52); Hemoglobin 7.6 g/dL (14.0-18.0); Lymphocyte % 21.3 %; Mean Corpuscular HGB Conc 30 g/dL (31-36); Mean Corpuscular Hemoglobin 21 pg (27-31); Mean Corpuscular Volume 70 fL (80-94); Mean Platelet Volume 7.2 fL (7.4-10.4); Platelet Count 737 10^3/uL (150-450); Red Blood Count 3.61 10^6 /uL (4.18-5.48); Red Cell Distribution Width 18 % (10-15); White Blood Count 11.9 10^3/uL (3.5-10.8)
[2022-07-20 06:22] LABS: C Reactive Protein 33.86 mg/L (<8.01); Calcium 7.4 mg/dL (8.6-10.3); Magnesium 2.2 mg/dL (1.9-2.7); Potassium 4.8 mmol/L (3.5-5.0); eGFR CKD-EPI 100.9 (>60)
[2022-07-20] MEDS: Vancomycin 1,250 MG in NS 0.9% 250 ml 250 ML IVPB SCH ×2 (06:22→14:12)
[2022-07-20] MEDS: Polyethylene Glycol 3350 17 GM PACKET PO SCH ×2 (08:07→20:36)
[2022-07-20 09:56] LABS: Erythrocyte Sed Rate 80 mm/Hr (0-19)
[2022-07-20] MEDS ORDERED: fentaNYL 100 mcg/2 ml 50 MCG/ML VIAL IV SLOW PU ONE (12:30)
[2022-07-20 16:20] LABS: B. garinii/B. afzellii PCR Negative (Negative); Lyme Disease Source SYNOVIAL FLUID
[2022-07-20] MEDS: Enoxaparin 40 MG/0.4 ML SYR SUBCUT SCH (20:27)
[2022-07-21] MEDS: Vancomycin 1,250 MG in NS 0.9% 250 ml 250 ML IVPB SCH ×2 (01:32→06:26)
[2022-07-21] MEDS: Cefepime 1 GM in Dextrose 1 GM/50 ML BAG IV SCH ×2 (04:27→16:59)
[2022-07-21] MEDS ORDERED: Vancomycin Trough Check NOTE FOLLOW UP ONE (05:30)
[2022-07-21 06:27] LABS: Calcium 7.9 mg/dL (8.6-10.3); eGFR CKD-EPI 71.4 (>60)
[2022-07-21 06:29] LABS: Potassium 5.5 mmol/L (3.5-5.0)
[2022-07-21 06:41] LABS: Hematocrit 27 % (42-52); Hemoglobin 8.3 g/dL (14.0-18.0); Mean Corpuscular HGB Conc 31 g/dL (31-36); Mean Corpuscular Hemoglobin 22 pg (27-31); Mean Corpuscular Volume 71 fL (80-94); Mean Platelet Volume 6.7 fL (7.4-10.4); Platelet Count 766 10^3/uL (150-450); Red Blood Count 3.85 10^6 /uL (4.18-5.48); Red Cell Distribution Width 19 % (10-15); White Blood Count 10.3 10^3/uL (3.5-10.8)
[2022-07-21] MEDS: Polyethylene Glycol 3350 17 GM PACKET PO SCH ×3 (08:44→21:11)
[2022-07-21] MEDS ORDERED: fentaNYL 100 mcg/2 ml 50 MCG/ML VIAL IV SLOW PU ONE (09:09)
[2022-07-21] MEDS ORDERED: SODIUM ZIRCONIUM CYCLOSILICATE 10 GM PACKET PO ONE (13:18)
[2022-07-21] MEDS: Enoxaparin 40 MG/0.4 ML SYR SUBCUT SCH (21:10)
[2022-07-22] MEDS: Cefepime 1 GM in Dextrose 1 GM/50 ML BAG IV SCH ×2 (03:55→17:03)
[2022-07-22] MEDS ORDERED: Vancomycin Random Level NOTE FOLLOW UP ONE (06:00)
[2022-07-22 06:07] LABS: Hematocrit 27 % (42-52); Hemoglobin 8.3 g/dL (14.0-18.0); Mean Corpuscular HGB Conc 31 g/dL (31-36); Mean Corpuscular Hemoglobin 22 pg (27-31); Mean Corpuscular Volume 70 fL (80-94); Mean Platelet Volume 6.8 fL (7.4-10.4); Platelet Count 788 10^3/uL (150-450); Red Blood Count 3.85 10^6 /uL (4.18-5.48); Red Cell Distribution Width 19 % (10-15); White Blood Count 8.2 10^3/uL (3.5-10.8)
[2022-07-22 06:14] LABS: Calcium 7.8 mg/dL (8.6-10.3); Magnesium 1.9 mg/dL (1.9-2.7); Vancomycin Random 13.2 mcg/mL; eGFR CKD-EPI 83.8 (>60)
[2022-07-22] MEDS: Polyethylene Glycol 3350 17 GM PACKET PO SCH (07:55)
[2022-07-22] MEDS ORDERED: Magnesium Sulfate IV 1GM/100ML 1 GM/100 ML BAG IV ONE (08:45)
[2022-07-22] MEDS ORDERED: Vancomycin 1000 MG in NS 0.9% 250 ML IVPB SCH (11:00)
[2022-07-22 15:53] VITALS: BP 124/72
[2022-07-23] MEDS ORDERED: Vancomycin Trough Check NOTE FOLLOW UP ONE (10:30)
== END 2022-07-22 19:25 | disposition home or self-care (01) | DRG 710 ==
LOC: ED 11:25 → SUATTDRO 20:54 → EDHOLD 20:54 → MED 07-16 08:54 → SSU 07-17 22:12
PROVIDERS: ADMIT Internal Medicine; ATTEND Internal Medicine

== ENCOUNTER 2022-11-19 00:33 | Inpatient (IN) ==
[2022-11-19 05:35] LABS: ABS Eosinophils 0.3 10^3/ul (0-0.6); ABS Lymphocytes 1.8 10^3/ul (1.0-4.8); ABS Monocytes 1.5 10^3/ul (0-0.8); Eosinophil % 2.2 %; Hematocrit 29 % (42-52); Hemoglobin 8.9 g/dL (14.0-18.0); Lymphocyte % 14.4 %; Mean Corpuscular HGB Conc 31 g/dL (31-36); Mean Corpuscular Hemoglobin 22 pg (27-31); Mean Corpuscular Volume 71 fL (80-94); Mean Platelet Volume 7.2 fL (7.4-10.4); Platelet Count 376 10^3/uL (150-450); Red Blood Count 4.05 10^6 /uL (4.18-5.48); Red Cell Distribution Width 17 % (10-15); White Blood Count 12.7 10^3/uL (3.5-10.8)
[2022-11-19 06:00] LABS: Albumin 2.7 g/dL (3.2-5.2); Albumin/Globulin Ratio 0.8 (1-3); Calcium 8.2 mg/dL (8.6-10.3); Creatinine, Serum 0.86 mg/dL (0.67-1.17); Globulin 3.6 g/dL (2-4); Potassium 4.1 mmol/L (3.5-5.0); Total Bilirubin 0.3 mg/dL (0.2-1.0); Total Protein 6.3 g/dL (6.4-8.9); eGFR CKD-EPI 101.6 (>60)
[2022-11-19] MEDS ORDERED: cefTRIAXone 1 gm/50 mL D5W 1 GM/50 ML BAG IV ONE (06:11)
[2022-11-19] MEDS ORDERED: Vancomycin 1,500 MG in NS 0.9% 250 ml 250 ML IVPB ONE (06:12)
[2022-11-19] MEDS ORDERED: Cefepime 2 GM in Dextrose 2 GM/50 ML BAG IV ONE (06:13)
[2022-11-19] MEDS ORDERED: metroNIDAZOLE IV 500 MG/100ML 500 MG/100 ML BAG IVPB ONE (06:14)
[2022-11-19 06:30] LABS: CRP High Sensitivity 185.69 mg/L (<2.00)
[2022-11-19 06:48] LABS: Erythrocyte Sed Rate 110 mm/Hr (0-19)
[2022-11-19] MEDS ORDERED: Morphine 10 MG/ML VIAL (1 ml) IV ONE (06:49)
[2022-11-19] MEDS ORDERED: Dextrose 50% Syringe 50 ml 25 GM/50 ML SYRINGE IV PUSH PRN (10:18)
[2022-11-19] MEDS ORDERED: Senna TAB 8.6 mg TAB PO PRN (10:26)
[2022-11-19] MEDS ORDERED: Vancomycin per Pharmacy 1 EA NOTE FOLLOW UP PRN (10:26)
[2022-11-19 11:44] LABS: HDL Cholesterol 26.5 mg/dL
[2022-11-19] MEDS: Methadone ORALSYR CONC LIQ 10 MG/ML PO SCH (12:45)
[2022-11-19 16:29] LABS: C Reactive Protein 230.17 mg/L (<8.01)
[2022-11-19] MEDS: Vancomycin 1000 MG in NS 0.9% 250 ML IVPB SCH (17:48)
[2022-11-19] MEDS: Enoxaparin 40 MG/0.4 ML SYR SUBCUT SCH (22:59)
[2022-11-20] MEDS: Vancomycin 1000 MG in NS 0.9% 250 ML IVPB SCH ×4 (01:26→23:47)
[2022-11-20] MEDS: Cefepime 2 GM in Dextrose 2 GM/50 ML BAG IV SCH ×4 (01:28→15:04)
[2022-11-20] MEDS ORDERED: Vancomycin Trough Check NOTE FOLLOW UP ONE (07:30)
[2022-11-20 09:03] LABS: ABS Basophils 0.1 10^3/ul (0-0.2); ABS Eosinophils 0.4 10^3/ul (0-0.6); ABS Lymphocytes 1.2 10^3/ul (1.0-4.8); ABS Monocytes 0.7 10^3/ul (0-0.8); ABS Neutrophils 5.5 10^3/ul (1.5-7.7); Eosinophil % 4.8 %; Hematocrit 30 % (42-52); Hemoglobin 9.5 g/dL (14.0-18.0); Lymphocyte % 15.6 %; Mean Corpuscular HGB Conc 32 g/dL (31-36); Mean Corpuscular Hemoglobin 23 pg (27-31); Mean Corpuscular Volume 72 fL (80-94); Mean Platelet Volume 7.3 fL (7.4-10.4); Platelet Count 362 10^3/uL (150-450); Red Blood Count 4.18 10^6 /uL (4.18-5.48); Red Cell Distribution Width 17 % (10-15)
[2022-11-20 09:44] LABS: Creatinine, Serum 0.84 mg/dL (0.67-1.17); Potassium 4.5 mmol/L (3.5-5.0); eGFR CKD-EPI 102.3 (>60)
[2022-11-20 10:19] LABS: Vancomycin Trough 14.4 mcg/mL
[2022-11-20] MEDS: Methadone ORALSYR CONC LIQ 10 MG/ML PO SCH (11:16)
[2022-11-20] MEDS: Enoxaparin 40 MG/0.4 ML SYR SUBCUT SCH (21:58)
[2022-11-21] MEDS: Cefepime 2 GM in Dextrose 2 GM/50 ML BAG IV SCH ×2 (04:20→15:17)
[2022-11-21 07:29] LABS: Creatinine, Serum 0.89 mg/dL (0.67-1.17); eGFR CKD-EPI 100.6 (>60)
[2022-11-21] MEDS: Methadone ORALSYR CONC LIQ 10 MG/ML PO SCH (09:49)
[2022-11-21] MEDS: Vancomycin 1000 MG in NS 0.9% 250 ML IVPB SCH ×2 (09:51→15:56)
[2022-11-21] MEDS: Enoxaparin 40 MG/0.4 ML SYR SUBCUT SCH (20:15)
[2022-11-22] MEDS: Vancomycin 1000 MG in NS 0.9% 250 ML IVPB SCH ×2 (00:17→08:55)
[2022-11-22] MEDS: Cefepime 2 GM in Dextrose 2 GM/50 ML BAG IV SCH ×2 (05:06→14:56)
[2022-11-22] MEDS ORDERED: Vancomycin Trough Check NOTE FOLLOW UP ONE (07:30)
[2022-11-22 08:43] LABS: Creatinine, Serum 0.96 mg/dL (0.67-1.17); Vancomycin Trough 19.9 mcg/mL; eGFR CKD-EPI 92.8 (>60)
[2022-11-22] MEDS: Methadone ORALSYR CONC LIQ 10 MG/ML PO SCH (09:17)
[2022-11-22] MEDS: Vancomycin 750 MG in NS 0.9% 250 ML IVPB SCH (16:09)
[2022-11-22] MEDS: Enoxaparin 40 MG/0.4 ML SYR SUBCUT SCH (21:43)
[2022-11-23] MEDS: Vancomycin 750 MG in NS 0.9% 250 ML IVPB SCH ×2 (00:01→10:31)
[2022-11-23] MEDS: Cefepime 2 GM in Dextrose 2 GM/50 ML BAG IV SCH (04:01)
[2022-11-23 06:51] LABS: eGFR CKD-EPI 88.3 (>60)
[2022-11-23] MEDS ORDERED: Lidocaine PATCH 5% PATCH TRANSDERM SCH (10:00)
[2022-11-23] MEDS: Methadone ORALSYR CONC LIQ 10 MG/ML PO SCH (10:32)
[2022-11-23 11:39] VITALS: BP 130/65
[2022-11-25] MEDS ORDERED: Vancomycin Trough Check NOTE FOLLOW UP ONE (07:30)
== END 2022-11-23 14:56 | disposition home or self-care (01) | DRG 344 ==
LOC: ED 00:33 → EDHOLD 00:33 → OBSVTOIN 06:47 → SUATTDRO 06:47 → MEDTELE 20:04
PROVIDERS: ADMIT Internal Medicine; ATTEND Internal Medicine

== ENCOUNTER 2024-03-17 16:23 | Inpatient (IN) ==
[2024-03-17 16:51] LABS: ABS Basophils 0.1 10^3/uL (0.0-0.1); ABS Eosinophils 0.3 10^3/uL (0.0-0.5); ABS Lymphocytes 2.1 10^3/uL (1.0-4.8); ABS Monocytes 1.1 10^3/uL (0.0-1.1); ABS Neutrophils 10.6 10^3/uL (1.5-7.6); ABS Nucleated RBC 0.02 10^3/ul; Eosinophil % 2.5 %; Hematocrit 41.4 % (38-53); Hemoglobin 13.6 g/dL (13.2-16.3); Lymphocyte % 14.8 %; Mean Corpuscular Hemoglobin 27.4 pg (27-33); Mean Corpuscular Hgb Conc 32.9 g/dL (31-36); Mean Corpuscular Volume 83.4 fL (80-97); Mean Platelet Volume 8.5 fL (7.5-11.2); Nucleated Red Blood Cells % 0.1 %/100WBC (0.0-0.8); Platelet Count 255 10^3/uL (150-450); Red Blood Count 4.97 10^6/uL (4.06-5.63); Red Cell Distribution Width 14.9 % (12-17); White Blood Count 14.2 10^3/uL (3.6-10.2)
[2024-03-17] MEDS: NS 0.9% 1000 ml BAG 1,000 ML IV ONE (16:58)
[2024-03-17] MEDS: Dexamethasone IV 4 MG/ML VIAL 1 ml VIAL IV SLOW PU ONE (17:00)
[2024-03-17] MEDS: Albuterol/Ipratropium NEB.SOL (2.5/0.5 MG) 3 ML NEB.SOLN INH ONE (17:08)
[2024-03-17 17:21] LABS: INR 1.06 (0.83-1.13)
[2024-03-17 17:34] LABS: Albumin 3.4 g/dL (3.2-5.2); Albumin/Globulin Ratio 1.6 (1-3); Calcium 8.5 mg/dL (8.6-10.3); Creatinine, Serum 1.09 mg/dL (0.67-1.17); Globulin 2.1 g/dL (2-4); Potassium 3.9 mmol/L (3.5-5.0); Total Bilirubin 0.4 mg/dL (0.2-1.0); Total Protein 5.5 g/dL (6.4-8.9); eGFR CKD-EPI 79.2 (>60)
[2024-03-17 18:10] LABS: High Sensitivity Troponin 1 Hr 41 pg/mL (<20)
[2024-03-17] MEDS: Iodixanol (CONTRAST) 320 MG/ML 100 ML SDV IV ONE (18:26)
[2024-03-17 18:47] LABS: CRP High Sensitivity 19.78 mg/L (<2.00); Lipase < 10 U/L (11.0-82.0)
[2024-03-17] MEDS: Furosemide 40 mg/4 ml IV VIAL IV SLOW PU ONE (19:10)
[2024-03-17 19:27] LABS: Urine Appearance Clear; Urine Bilirubin Negative (Negative); Urine Blood Trace (Negative); Urine Color Colorless; Urine Glucose Negative (Negative); Urine Ketones Negative (Negative); Urine Nitrite Negative (Negative); Urine Protein Negative (Negative); Urine Urobilinogen Negative (Negative); Urine pH 6.5 (5.0-8.0)
[2024-03-17] MEDS: Digoxin IV 0.5 MG/2 ML AMP (0.25 MG/ML) IV SLOW PU ONE (21:51)
[2024-03-17 22:29] LABS: Magnesium 1.7 mg/dL (1.9-2.7)
[2024-03-17] MEDS ORDERED: Metoprolol Tartrate 5 mg VIAL 5 ml VIAL (1 mg/ml) IV PRN (22:43)
[2024-03-17] MEDS ORDERED: Dextrose 50% Syringe 50 ml 25 GM/50 ML SYRINGE IV PUSH PRN (22:52)
[2024-03-17] MEDS: Magnesium Sulfate 2 gm BAG 2 GM/50 ML BAG IVPB ONE (23:31)
[2024-03-17] MEDS: Enoxaparin 100 MG/ML SYR SUBCUT SCH (23:32)
[2024-03-18] MEDS: Magnesium Sulfate IV 1GM/100ML 1 GM/100 ML BAG IV ONE (00:34)
[2024-03-18] MEDS: Norepinephrine 4 MG/250mL D5W 4,000 MCG/250 ML BAG IV SCH (01:44)
[2024-03-18] MEDS: Norepinephrine 4 MG/250mL D5W 4,000 MCG/250 ML BAG IV ONE (01:45)
[2024-03-18 04:50] LABS: Hematocrit 40.6 % (38-53); Hemoglobin 13.2 g/dL (13.2-16.3); Mean Corpuscular Hemoglobin 27.1 pg (27-33); Mean Corpuscular Hgb Conc 32.5 g/dL (31-36); Mean Corpuscular Volume 83.2 fL (80-97); Mean Platelet Volume 8.7 fL (7.5-11.2); Platelet Count 246 10^3/uL (150-450); Red Blood Count 4.88 10^6/uL (4.06-5.63); Red Cell Distribution Width 14.3 % (12-17); White Blood Count 11.5 10^3/uL (3.6-10.2)
[2024-03-18 05:41] LABS: ABS Monocytes 0.6 10^3/uL (0.0-1.1); ABS Neutrophils 9.9 10^3/uL (1.5-7.6); ABS Nucleated RBC 0.01 10^3/ul; Nucleated Red Blood Cells % 0.1 %/100WBC (0.0-0.8)
[2024-03-18 05:42] LABS: RBC Morphology Normal (Normal)
[2024-03-18 05:50] LABS: Calcium 8.1 mg/dL (8.6-10.3); Creatinine, Serum 1.21 mg/dL (0.67-1.17); Magnesium 2.6 mg/dL (1.9-2.7); eGFR CKD-EPI 69.8 (>60)
[2024-03-18] MEDS ORDERED: Omeprazole 20 mg CAP (NF) PO SCH (09:00)
[2024-03-18] MEDS: Sulfur Hexaflouride MICROSPHR 25 MG VIAL IV ONE (09:33)
[2024-03-18] MEDS: Methadone ORALSYR CONC LIQ 10 MG/ML PO SCH (09:55)
[2024-03-18 14:45] LABS: HDL Cholesterol 42.5 mg/dL
[2024-03-18 15:00] LABS: TSH Ultra Thyroid Stim Horm 0.43 mcIU/mL (0.34-5.60)
[2024-03-18] MEDS: Metoprolol Tartrate 5 mg VIAL 5 ml VIAL (1 mg/ml) IV SCH (15:19)
[2024-03-19 05:36] LABS: ABS Basophils 0.1 10^3/uL (0.0-0.1); ABS Eosinophils 0.2 10^3/uL (0.0-0.5); ABS Lymphocytes 2.8 10^3/uL (1.0-4.8); ABS Monocytes 0.7 10^3/uL (0.0-1.1); ABS Neutrophils 6.9 10^3/uL (1.5-7.6); ABS Nucleated RBC 0.01 10^3/ul; Eosinophil % 1.5 %; Hematocrit 37.9 % (38-53); Hemoglobin 12.8 g/dL (13.2-16.3); Lymphocyte % 26.2 %; Mean Corpuscular Hgb Conc 33.6 g/dL (31-36); Mean Corpuscular Volume 83.3 fL (80-97); Mean Platelet Volume 8.7 fL (7.5-11.2); Nucleated Red Blood Cells % 0.1 %/100WBC (0.0-0.8); Platelet Count 217 10^3/uL (150-450); Red Blood Count 4.56 10^6/uL (4.06-5.63); Red Cell Distribution Width 14.5 % (12-17); White Blood Count 10.6 10^3/uL (3.6-10.2)
[2024-03-19 05:54] LABS: Albumin 3.1 g/dL (3.2-5.2); Albumin/Globulin Ratio 1.2 (1-3); Calcium 8.3 mg/dL (8.6-10.3); Creatinine, Serum 1.23 mg/dL (0.67-1.17); Globulin 2.5 g/dL (2-4); Total Bilirubin 0.2 mg/dL (0.2-1.0); Total Protein 5.6 g/dL (6.4-8.9); eGFR CKD-EPI 68.5 (>60)
[2024-03-19] MEDS ORDERED: Heparin 2 UNITS/ML 1000 mls 2,000 ML IV ONE (10:36)
[2024-03-19] MEDS ORDERED: Heparin 1,000 UNIT/ML 10 ml (10,000 UNITS) CATHLAB/DIALYSIS ONE (10:36)
[2024-03-19] MEDS ORDERED: Midazolam 5 mg/5 ml VIAL 1 mg/ml 5 ml VIAL (5 mg) ONE (10:36)
[2024-03-19] MEDS ORDERED: fentaNYL 100 mcg/2 ml 50 MCG/ML VIAL ONE (10:36)
[2024-03-19] MEDS ORDERED: nitroGLYCERIN DRIP 25,000 MCG/250 ML BTL ONE (10:37)
[2024-03-19] MEDS ORDERED: Heparin 2 UNITS/ML 1000 mls 1,000 ML IV ONE (10:37)
[2024-03-19] MEDS ORDERED: Iohexol 350 (CONTRAST) 200 ML MDV IV ONE (10:37)
[2024-03-19] MEDS ORDERED: Lidocaine 1% MPF 5 ML VIAL ONE (10:38)
[2024-03-19] MEDS ORDERED: niCARdipine 0.1MG/ML IVPREMIX 20 MG/200 ML BAG IV ONE (10:38)
[2024-03-19] MEDS ORDERED: Naloxone 0.4 mg VIAL 0.4 mg/ml 1 ml VIAL IV PUSH PRN (10:52)
[2024-03-19] MEDS ORDERED: Flumazenil 0.5 mg/5 ml 0.1 MG/ML 5 ml VIAL IV PRN (10:52)
[2024-03-19] MEDS: fentaNYL 100 mcg/2 ml 50 MCG/ML VIAL IV SLOW PU ONE (12:24)
[2024-03-19] MEDS: Midazolam 10 mg/10 ml VIAL 1 mg/ml 10 ml VIAL (10 mg) IV SLOW PU ONE (12:25)
[2024-03-19] MEDS: Metoprolol Tartrate 5 mg VIAL 5 ml VIAL (1 mg/ml) IV ONE ×2 (13:06→17:44)
[2024-03-19] MEDS: Metoprolol Tartrate 5 mg VIAL 5 ml VIAL (1 mg/ml) ONE (14:19)
[2024-03-20 05:31] LABS: ABS Basophils 0.1 10^3/uL (0.0-0.1); ABS Eosinophils 0.1 10^3/uL (0.0-0.5); ABS Lymphocytes 1.5 10^3/uL (1.0-4.8); ABS Monocytes 1.2 10^3/uL (0.0-1.1); ABS Neutrophils 8.6 10^3/uL (1.5-7.6); Eosinophil % 1.2 %; Hematocrit 40.9 % (38-53); Hemoglobin 13.4 g/dL (13.2-16.3); Lymphocyte % 13.2 %; Mean Corpuscular Hemoglobin 27.6 pg (27-33); Mean Corpuscular Hgb Conc 32.6 g/dL (31-36); Mean Corpuscular Volume 84.6 fL (80-97); Mean Platelet Volume 8.5 fL (7.5-11.2); Platelet Count 238 10^3/uL (150-450); Red Blood Count 4.84 10^6/uL (4.06-5.63); Red Cell Distribution Width 14.5 % (12-17); White Blood Count 11.5 10^3/uL (3.6-10.2)
[2024-03-20 06:05] LABS: Albumin 3.3 g/dL (3.2-5.2); Albumin/Globulin Ratio 1.4 (1-3); Calcium 8.5 mg/dL (8.6-10.3); Creatinine, Serum 1.23 mg/dL (0.67-1.17); Globulin 2.3 g/dL (2-4); Magnesium 1.7 mg/dL (1.9-2.7); Potassium 4.5 mmol/L (3.5-5.0); Total Bilirubin 0.3 mg/dL (0.2-1.0); Total Protein 5.6 g/dL (6.4-8.9); eGFR CKD-EPI 68.5 (>60)
[2024-03-20] MEDS: Magnesium Sulfate IV 1GM/100ML 1 GM/100 ML BAG IV ONE (07:47)
[2024-03-20] MEDS: Magnesium Sulfate 2 gm BAG 2 GM/50 ML BAG IVPB ONE (08:32)
[2024-03-20] MEDS ORDERED: Methadone ORALSYR CONC LIQ 10 MG/ML PO SCH (10:00)
[2024-03-20] MEDS ORDERED: Midazolam 5 mg/5 ml VIAL 1 mg/ml 5 ml VIAL (5 mg) ONE (12:39)
[2024-03-20] MEDS ORDERED: fentaNYL 100 mcg/2 ml 50 MCG/ML VIAL ONE (12:39)
[2024-03-20] MEDS ORDERED: Naloxone 0.4 mg VIAL 0.4 mg/ml 1 ml VIAL ONE (12:39)
[2024-03-20] MEDS ORDERED: Flumazenil 0.5 mg/5 ml 0.1 MG/ML 5 ml VIAL ONE (12:39)
[2024-03-20] MEDS ORDERED: Flumazenil 0.5 mg/5 ml 0.1 MG/ML 5 ml VIAL IV PRN (13:17)
[2024-03-20] MEDS: Midazolam 10 mg/10 ml VIAL 1 mg/ml 10 ml VIAL (10 mg) IV SLOW PU ONE (13:55)
[2024-03-21 05:30] LABS: ABS Basophils 0.1 10^3/uL (0.0-0.1); ABS Eosinophils 0.4 10^3/uL (0.0-0.5); ABS Neutrophils 5.2 10^3/uL (1.5-7.6); ABS Nucleated RBC 0.01 10^3/ul; Eosinophil % 4.5 %; Hematocrit 36.5 % (38-53); Hemoglobin 11.9 g/dL (13.2-16.3); Lymphocyte % 23.1 %; Mean Corpuscular Hemoglobin 27.7 pg (27-33); Mean Corpuscular Hgb Conc 32.6 g/dL (31-36); Mean Corpuscular Volume 84.7 fL (80-97); Mean Platelet Volume 8.7 fL (7.5-11.2); Nucleated Red Blood Cells % 0.1 %/100WBC (0.0-0.8); Platelet Count 209 10^3/uL (150-450); Red Blood Count 4.31 10^6/uL (4.06-5.63); Red Cell Distribution Width 14.6 % (12-17); White Blood Count 8.7 10^3/uL (3.6-10.2)
[2024-03-21 06:23] LABS: Anion Gap 4 mmol/L (2-16); Blood Urea Nitrogen 30 mg/dL (6-24); CO2 Carbon Dioxide 28 mmol/L (22-32); Chloride 107 mmol/L (101-111); Creatinine, Serum 1.14 mg/dL (0.67-1.17); Glucose 140 mg/dL (70-100); Potassium 4.7 mmol/L (3.5-5.0); Sodium 139 mmol/L (135-145)
[2024-03-21 08:13] LABS: Albumin 2.9 g/dL (3.2-5.2)
[2024-03-21] MEDS: Methadone ORALSYR CONC LIQ 10 MG/ML PO SCH ×2 (09:42→11:02)
[2024-03-21 14:56] LABS: % Iron Saturation 6 % (15-55); .Transferrin 238 mg/dL (203-362); Iron < 20 ug/dL (50-212); Total Iron Binding Capacity 333 mcg/dL (250-450); Unsaturated Iron Binding 313 ug/dL
[2024-03-21 15:14] LABS: Ferritin 48.6 ng/mL (24-336)
[2024-03-21] MEDS: Iron Sucrose 200 MG in NS 0.9% 100 ml BAG 100 ML IVPB SCH (19:31)
[2024-03-22 06:22] LABS: ABS Eosinophils 0.6 10^3/uL (0.0-0.5); ABS Lymphocytes 1.9 10^3/uL (1.0-4.8); ABS Neutrophils 5.4 10^3/uL (1.5-7.6); ABS Nucleated RBC 0.01 10^3/ul; Eosinophil % 6.8 %; Hematocrit 38.7 % (38-53); Hemoglobin 12.6 g/dL (13.2-16.3); Lymphocyte % 21.1 %; Mean Corpuscular Hemoglobin 27.6 pg (27-33); Mean Corpuscular Hgb Conc 32.6 g/dL (31-36); Mean Corpuscular Volume 84.7 fL (80-97); Mean Platelet Volume 8.6 fL (7.5-11.2); Nucleated Red Blood Cells % 0.1 %/100WBC (0.0-0.8); Platelet Count 252 10^3/uL (150-450); Red Blood Count 4.57 10^6/uL (4.06-5.63); Red Cell Distribution Width 14.8 % (12-17); White Blood Count 8.9 10^3/uL (3.6-10.2)
[2024-03-22 07:12] LABS: Albumin/Globulin Ratio 1.2 (1-3); Calcium 8.3 mg/dL (8.6-10.3); Creatinine, Serum 1.17 mg/dL (0.67-1.17); Globulin 2.5 g/dL (2-4); Magnesium 1.9 mg/dL (1.9-2.7); Potassium 4.8 mmol/L (3.5-5.0); Total Bilirubin 0.3 mg/dL (0.2-1.0); Total Protein 5.5 g/dL (6.4-8.9); eGFR CKD-EPI 72.7 (>60)
[2024-03-22] MEDS ORDERED: Polyethylene Glycol 3350 17 GM PACKET PO PRN (09:55)
[2024-03-22] MEDS: Senna TAB 8.6 mg TAB PO PRN (21:50)
[2024-03-23 06:57] LABS: ABS Eosinophils 0.6 10^3/uL (0.0-0.5); ABS Lymphocytes 1.7 10^3/uL (1.0-4.8); ABS Monocytes 0.9 10^3/uL (0.0-1.1); ABS Neutrophils 4.3 10^3/uL (1.5-7.6); Eosinophil % 8.4 %; Hematocrit 36.7 % (38-53); Hemoglobin 11.9 g/dL (13.2-16.3); Lymphocyte % 22.6 %; Mean Corpuscular Hemoglobin 27.3 pg (27-33); Mean Corpuscular Hgb Conc 32.5 g/dL (31-36); Mean Platelet Volume 8.1 fL (7.5-11.2); Nucleated Red Blood Cells % 0.1 %/100WBC (0.0-0.8); Platelet Count 252 10^3/uL (150-450); Red Blood Count 4.36 10^6/uL (4.06-5.63); Red Cell Distribution Width 14.7 % (12-17); White Blood Count 7.5 10^3/uL (3.6-10.2)
[2024-03-23 08:43] LABS: Albumin/Globulin Ratio 1.3 (1-3); Calcium 8.3 mg/dL (8.6-10.3); Globulin 2.3 g/dL (2-4); Magnesium 1.8 mg/dL (1.9-2.7); Phosphorus 4.2 mg/dL (2.5-5.0); Potassium 4.6 mmol/L (3.5-5.0); Total Bilirubin 0.2 mg/dL (0.2-1.0); Total Protein 5.3 g/dL (6.4-8.9)
[2024-03-23 09:05] LABS: Digoxin 0.3 ng/ml (0.8-2.0)
[2024-03-23 09:12] LABS: Creatinine, Serum 1.11 mg/dL (0.67-1.17); eGFR CKD-EPI 77.5 (>60)
[2024-03-23] MEDS: Digoxin IV 0.5 MG/2 ML AMP (0.25 MG/ML) IV SLOW PU ONE ×2 (10:18→20:11)
[2024-03-24 07:16] LABS: ABS Eosinophils 0.6 10^3/uL (0.0-0.5); ABS Lymphocytes 1.6 10^3/uL (1.0-4.8); ABS Monocytes 0.8 10^3/uL (0.0-1.1); ABS Neutrophils 3.6 10^3/uL (1.5-7.6); Eosinophil % 8.7 %; Hematocrit 39.3 % (38-53); Hemoglobin 12.8 g/dL (13.2-16.3); Lymphocyte % 24.5 %; Mean Corpuscular Hemoglobin 27.6 pg (27-33); Mean Corpuscular Hgb Conc 32.6 g/dL (31-36); Mean Corpuscular Volume 84.4 fL (80-97); Mean Platelet Volume 7.6 fL (7.5-11.2); Platelet Count 258 10^3/uL (150-450); Red Blood Count 4.66 10^6/uL (4.06-5.63); Red Cell Distribution Width 14.6 % (12-17); White Blood Count 6.7 10^3/uL (3.6-10.2)
[2024-03-24 08:13] LABS: Calcium 8.5 mg/dL (8.6-10.3); Creatinine, Serum 1.04 mg/dL (0.67-1.17); Magnesium 1.8 mg/dL (1.9-2.7); Potassium 4.5 mmol/L (3.5-5.0); eGFR CKD-EPI 83.7 (>60)
[2024-03-24] MEDS: Lidocaine PATCH 5% PATCH TRANSDERM SCH (12:21)
[2024-03-24] MEDS: Magnesium Sulfate IV 1GM/100ML 1 GM/100 ML BAG IV ONE (12:45)
[2024-03-25 07:44] LABS: Hemoglobin 13.2 g/dL (13.2-16.3); Mean Corpuscular Hemoglobin 27.6 pg (27-33); Mean Corpuscular Volume 83.5 fL (80-97); Mean Platelet Volume 7.4 fL (7.5-11.2); Platelet Count 303 10^3/uL (150-450); Red Blood Count 4.79 10^6/uL (4.06-5.63); Red Cell Distribution Width 14.3 % (12-17); White Blood Count 7.9 10^3/uL (3.6-10.2)
[2024-03-25 08:08] LABS: Calcium 8.6 mg/dL (8.6-10.3); Creatinine, Serum 1.21 mg/dL (0.67-1.17); Potassium 4.7 mmol/L (3.5-5.0); eGFR CKD-EPI 69.8 (>60)
[2024-03-25] MEDS: Polyethylene Glycol 3350 17 GM PACKET PO SCH (08:22)
[2024-03-25] MEDS ORDERED: Senna TAB 8.6 mg TAB PO SCH (09:00)
[2024-03-25 09:24] VITALS: BP 100/65
== END 2024-03-25 13:45 | disposition home or self-care (01) | DRG 192 ==
LOC: ED 16:23 → SUATTDRO 21:55 → EDHOLD 21:55 → ICU 23:29 → MED 03-22 09:58
PROVIDERS: ADMIT Student in an Organized Health Care Education/Training Program; ATTEND Internal Medicine

== ENCOUNTER 2024-04-24 20:55 | Inpatient (IN) ==
[2024-04-24 21:46] LABS: ABS Basophils 0.1 10^3/uL (0.0-0.1); ABS Eosinophils 0.3 10^3/uL (0.0-0.5); ABS Lymphocytes 1.8 10^3/uL (1.0-4.8); ABS Monocytes 0.6 10^3/uL (0.0-1.1); ABS Neutrophils 6.4 10^3/uL (1.5-7.6); ABS Nucleated RBC 0.01 10^3/ul; Eosinophil % 3.3 %; Hematocrit 40.6 % (38-53); Hemoglobin 13.1 g/dL (13.2-16.3); Lymphocyte % 19.1 %; Mean Corpuscular Hgb Conc 32.3 g/dL (31-36); Mean Corpuscular Volume 86.7 fL (80-97); Nucleated Red Blood Cells % 0.1 %/100WBC (0.0-0.8); Platelet Count 218 10^3/uL (150-450); Red Blood Count 4.68 10^6/uL (4.06-5.63); Red Cell Distribution Width 18.9 % (12-17); White Blood Count 9.3 10^3/uL (3.6-10.2)
[2024-04-24] MEDS ORDERED: Lorazepam PYXIS KEY PRN (21:56)
[2024-04-24] MEDS: LORazepam 2 mg VIAL 1 ml IV PUSH ONE (22:09)
[2024-04-24 22:18] LABS: Calcium 8.1 mg/dL (8.6-10.3); Creatinine, Serum 1.4 mg/dL (0.67-1.17); Potassium 4.7 mmol/L (3.5-5.0); eGFR CKD-EPI 58.6 (>60)
[2024-04-24 22:20] LABS: Albumin/Globulin Ratio 1.1 (1-3); Globulin 2.8 g/dL (2-4); Total Bilirubin 1.4 mg/dL (0.2-1.0); Total Protein 5.8 g/dL (6.4-8.9)
[2024-04-24 23:10] LABS: High Sensitivity Troponin 1 Hr 22 pg/mL (<20)
[2024-04-25] MEDS: Lactated Ringers 1000 ml BAG 1,000 ML IV ONE (00:03)
[2024-04-25 05:12] LABS: Urine Benzodiazepine Screen None Detected (None Detect); Urine Cannabinoids Screen Presumptive Positive (None Detect); Urine Opiates Screen None Detected (None Detect)
[2024-04-25 05:27] LABS: ABS Basophils 0.1 10^3/uL (0.0-0.1); ABS Eosinophils 0.2 10^3/uL (0.0-0.5); ABS Lymphocytes 1.8 10^3/uL (1.0-4.8); ABS Monocytes 0.4 10^3/uL (0.0-1.1); ABS Nucleated RBC 0.01 10^3/ul; Eosinophil % 2.6 %; Hematocrit 40.7 % (38-53); Hemoglobin 13.2 g/dL (13.2-16.3); Lymphocyte % 27.9 %; Mean Corpuscular Hemoglobin 28.2 pg (27-33); Mean Corpuscular Hgb Conc 32.5 g/dL (31-36); Mean Corpuscular Volume 86.7 fL (80-97); Nucleated Red Blood Cells % 0.2 %/100WBC (0.0-0.8); Platelet Count 184 10^3/uL (150-450); Red Blood Count 4.69 10^6/uL (4.06-5.63); Red Cell Distribution Width 19.1 % (12-17); White Blood Count 6.4 10^3/uL (3.6-10.2)
[2024-04-25 05:36] LABS: INR 1.81 (0.83-1.13)
[2024-04-25 06:05] LABS: Albumin 2.8 g/dL (3.2-5.2); Calcium 7.7 mg/dL (8.6-10.3); Creatinine, Serum 1.16 mg/dL (0.67-1.17); Globulin 2.8 g/dL (2-4); Potassium 4.5 mmol/L (3.5-5.0); Total Bilirubin 1.6 mg/dL (0.2-1.0); Total Protein 5.6 g/dL (6.4-8.9); eGFR CKD-EPI 73.5 (>60)
[2024-04-25 06:33] LABS: Hepatitis B Surface Antigen Nonreactive (Nonreactive)
[2024-04-25 06:38] LABS: Hepatitis A Ab IgM Negative (Negative)
[2024-04-25 06:39] LABS: Hepatitis B Core IgM Nonreactive (Nonreactive)
[2024-04-25 07:00] LABS: Hepatitis C Antibody Reactive (Negative)
[2024-04-25 07:08] LABS: Direct Bilirubin 0.4 mg/dL (0.03-0.18)
[2024-04-25 11:53] LABS: C Reactive Protein 30.93 mg/L (<8.01)
[2024-04-25] MEDS: Al Hydrox/Mg Hydrox/Simet LIQ 30 ML UDC PO ONE (16:30)
[2024-04-26 06:05] LABS: Hematocrit 42.6 % (38-53); Hemoglobin 13.5 g/dL (13.2-16.3); Mean Corpuscular Hemoglobin 27.3 pg (27-33); Mean Corpuscular Hgb Conc 31.7 g/dL (31-36); Mean Corpuscular Volume 86.2 fL (80-97); Mean Platelet Volume 8.7 fL (7.5-11.2); Platelet Count 223 10^3/uL (150-450); Red Blood Count 4.95 10^6/uL (4.06-5.63); Red Cell Distribution Width 18.6 % (12-17); White Blood Count 10.3 10^3/uL (3.6-10.2)
[2024-04-26 06:47] LABS: Albumin 2.6 g/dL (3.2-5.2); Creatinine, Serum 1.15 mg/dL (0.67-1.17); Direct Bilirubin 0.4 mg/dL (0.03-0.18); Globulin 2.5 g/dL (2-4); Indirect Bilirubin 0.9 mg/dL (0.3-1.0); Magnesium 1.8 mg/dL (1.9-2.7); Potassium 5.1 mmol/L (3.5-5.0); Total Bilirubin 1.3 mg/dL (0.2-1.0); Total Protein 5.1 g/dL (6.4-8.9); eGFR CKD-EPI 74.2 (>60)
[2024-04-26 07:37] LABS: Digoxin 0.6 ng/ml (0.8-2.0)
[2024-04-26] MEDS: Digoxin IV 0.5 MG/2 ML AMP (0.25 MG/ML) IV SLOW PU ONE ×2 (08:11→08:18)
[2024-04-26] MEDS: Amiodarone 400 mg TAB PO ONE (08:18)
[2024-04-26 11:19] LABS: High Sensitivity Troponin 1 Hr 18 pg/mL (<20)
[2024-04-26] MEDS: Sulfur Hexaflouride MICROSPHR 25 MG VIAL IV ONE (12:34)
[2024-04-26 13:08] LABS: High Sensitivity Troponin 3 Hr 15 pg/mL (<20)
[2024-04-26 14:49] LABS: Ferritin 289.8 ng/mL (24-336)
[2024-04-26] MEDS: Iodixanol (CONTRAST) 320 MG/ML 100 ML SDV IV ONE (16:41)
[2024-04-26] MEDS: Amiodarone 400 mg TAB PO SCH (21:02)
[2024-04-27 06:33] LABS: Hematocrit 43.7 % (38-53); Hemoglobin 14.1 g/dL (13.2-16.3); Mean Corpuscular Hemoglobin 27.9 pg (27-33); Mean Corpuscular Hgb Conc 32.2 g/dL (31-36); Mean Corpuscular Volume 86.6 fL (80-97); Mean Platelet Volume 8.7 fL (7.5-11.2); Platelet Count 235 10^3/uL (150-450); Red Blood Count 5.05 10^6/uL (4.06-5.63); Red Cell Distribution Width 18.3 % (12-17)
[2024-04-27 06:53] LABS: ALT 226 U/L (7-52); Albumin 2.3 g/dL (3.2-5.2); Albumin/Globulin Ratio 0.9 (1-3); Alkaline Phosphatase 166 U/L (35-149); Anion Gap 4 mmol/L (2-16); Blood Urea Nitrogen 24 mg/dL (6-24); CO2 Carbon Dioxide 29 mmol/L (22-32); Calcium 7.4 mg/dL (8.6-10.3); Chloride 106 mmol/L (101-111); Creatinine, Serum 1.05 mg/dL (0.67-1.17); Globulin 2.6 g/dL (2-4); Glucose 146 mg/dL (70-100); Sodium 139 mmol/L (135-145); Total Bilirubin 1.6 mg/dL (0.2-1.0); Total Protein 4.9 g/dL (6.4-8.9); eGFR CKD-EPI 82.8 (>60)
[2024-04-27 08:51] LABS: Magnesium 1.7 mg/dL (1.9-2.7); Potassium Redraw 5.3 mmol/L (3.5-5.0)
[2024-04-27] MEDS ORDERED: Amiodarone 400 mg TAB PO SCH (09:00)
[2024-04-27 10:47] LABS: C Reactive Protein 54.39 mg/L (<8.01)
[2024-04-27] MEDS: Amiodarone 400 mg TAB PO ONE (17:26)
[2024-04-27] MEDS: Magnesium Sulfate 2 gm BAG 2 GM/50 ML BAG IVPB ONE (17:26)
[2024-04-28] MEDS: Amiodarone 400 mg TAB PO SCH (08:52)
[2024-04-28 11:24] LABS: Albumin 2.5 g/dL (3.2-5.2); Calcium 8.2 mg/dL (8.6-10.3); Creatinine, Serum 1.29 mg/dL (0.67-1.17); Globulin 2.6 g/dL (2-4); Potassium 5.8 mmol/L (3.5-5.0); Total Bilirubin 1.2 mg/dL (0.2-1.0); Total Protein 5.1 g/dL (6.4-8.9); eGFR CKD-EPI 64.7 (>60)
[2024-04-28] MEDS ORDERED: Polyethylene Glycol 3350 17 GM PACKET PO PRN (11:43)
[2024-04-28 12:08] LABS: Magnesium 1.9 mg/dL (1.9-2.7)
[2024-04-28] MEDS: Magnesium Sulfate IV 1GM/100ML 1 GM/100 ML BAG IV ONE (12:57)
[2024-04-28] MEDS: SODIUM ZIRCONIUM CYCLOSILICATE 10 GM PACKET PO ONE ×3 (12:57→15:38)
[2024-04-29 06:06] LABS: Albumin 2.4 g/dL (3.2-5.2); Albumin/Globulin Ratio 0.9 (1-3); Calcium 7.8 mg/dL (8.6-10.3); Creatinine, Serum 1.06 mg/dL (0.67-1.17); Globulin 2.8 g/dL (2-4); Magnesium 1.7 mg/dL (1.9-2.7); Total Bilirubin 0.9 mg/dL (0.2-1.0); Total Protein 5.2 g/dL (6.4-8.9); eGFR CKD-EPI 81.9 (>60)
[2024-04-29] MEDS: Magnesium Sulfate 2 gm BAG 2 GM/50 ML BAG IVPB ONE (09:12)
[2024-04-29 10:15] VITALS: BP 96/68
== END 2024-04-29 12:25 | disposition home or self-care (01) | DRG 198 ==
LOC: ED 20:55 → EDHOLD 20:55 → SUATTDRO 04-25 01:20 → MEDTELE 04-25 17:04
PROVIDERS: ADMIT Internal Medicine; ATTEND Student in an Organized Health Care Education/Training Program

== ENCOUNTER 2024-05-10 02:02 | Inpatient (IN) ==
[2024-05-10 02:40] LABS: INR 1.7 (0.83-1.13)
[2024-05-10 02:53] LABS: High Sens Troponin Baseline 28 pg/mL (<20)
[2024-05-10 03:00] LABS: ABS Basophils 0.1 10^3/uL (0.0-0.1); ABS Eosinophils 0.1 10^3/uL (0.0-0.5); ABS Lymphocytes 1.8 10^3/uL (1.0-4.8); ABS Monocytes 0.6 10^3/uL (0.0-1.1); ABS Neutrophils 5.3 10^3/uL (1.5-7.6); ABS Nucleated RBC 0.01 10^3/ul; Eosinophil % 0.9 %; Hematocrit 41.4 % (38-53); Hemoglobin 13.3 g/dL (13.2-16.3); Lymphocyte % 23.2 %; Mean Corpuscular Hgb Conc 32.1 g/dL (31-36); Mean Corpuscular Volume 87.1 fL (80-97); Mean Platelet Volume 9.2 fL (7.5-11.2); Nucleated Red Blood Cells % 0.1 %/100WBC (0.0-0.8); Platelet Count 199 10^3/uL (150-450); Red Blood Count 4.75 10^6/uL (4.06-5.63); White Blood Count 7.8 10^3/uL (3.6-10.2)
[2024-05-10 03:35] LABS: AST 38 U/L (13-39); Potassium 4.5 mmol/L (3.5-5.0)
[2024-05-10 03:36] LABS: ALT 39 U/L (7-52); Albumin 3.2 g/dL (3.2-5.2); Albumin/Globulin Ratio 1.1 (1-3); Alkaline Phosphatase 113 U/L (35-149); Anion Gap 9 mmol/L (2-16); Blood Urea Nitrogen 29 mg/dL (6-24); CO2 Carbon Dioxide 23 mmol/L (22-32); Calcium 8.5 mg/dL (8.6-10.3); Chloride 100 mmol/L (101-111); Creatinine, Serum 1.44 mg/dL (0.67-1.17); Globulin 2.9 g/dL (2-4); Glucose 119 mg/dL (70-100); Magnesium 1.9 mg/dL (1.9-2.7); Sodium 132 mmol/L (135-145); Total Bilirubin 1.4 mg/dL (0.2-1.0); Total Protein 6.1 g/dL (6.4-8.9); eGFR CKD-EPI 56.7 (>60)
[2024-05-10 03:55] LABS: High Sensitivity Troponin 1 Hr 25 pg/mL (<20)
[2024-05-10] MEDS ORDERED: Amiodarone 400 mg TAB PO STA (03:59)
[2024-05-10 04:44] LABS: Digoxin 0.4 ng/ml (0.8-2.0); TSH Ultra Thyroid Stim Horm 4.19 mcIU/mL (0.34-5.60)
[2024-05-10] MEDS ORDERED: .Amiodarone 24HR ONLY IV Protocol Order Note IV ONE (05:50)
[2024-05-10] MEDS: Iodixanol (CONTRAST) 320 MG/ML 100 ML SDV IV ONE (07:02)
[2024-05-10] MEDS: Amiodarone 150 mg IVPREMIX 150 MG/100 ML BAG IV ONE (07:24)
[2024-05-10] MEDS: Amiodarone 360 MG IVPREMIX 360 MG/200 ML BAG IV SCH ×2 (07:47→11:47)
[2024-05-10] MEDS: Digoxin IV 0.5 MG/2 ML AMP (0.25 MG/ML) IV SLOW PU ONE ×3 (11:40→21:15)
[2024-05-10] MEDS: Furosemide 40 mg/4 ml IV VIAL IV ONE ×2 (14:19→21:16)
[2024-05-10 16:24] LABS: Urine Benzodiazepine Screen None Detected (None Detect); Urine Buprenorphine Screen None Detected (None Detect); Urine Cannabinoids Screen Presumptive Positive (None Detect); Urine Fentanyl Screen Presumptive Positive (None Detect); Urine Hydrocodone Screen None Detected (None Detect); Urine Opiates Screen None Detected (None Detect)
[2024-05-10 18:10] LABS: .Transferrin 242 mg/dL (203-362); Total Iron Binding Capacity 339 mcg/dL (250-450)
[2024-05-10 18:24] LABS: Ferritin 224.7 ng/mL (24-336)
[2024-05-10 18:28] LABS: Folate > 20.00 ng/mL (5.90-24.80); Vitamin B12 961 pg/mL (180-914)
[2024-05-10 19:20] LABS: Calcium 8.3 mg/dL (8.6-10.3); Creatinine, Serum 1.3 mg/dL (0.67-1.17); Magnesium 1.8 mg/dL (1.9-2.7); eGFR CKD-EPI 64.1 (>60)
[2024-05-10] MEDS: acetaZOLAMIDE IV 250 MG in NS 0.9% 50 ML 50 ML IVPB ONE (21:14)
[2024-05-11] MEDS: Amiodarone 400 mg TAB PO SCH (00:14)
[2024-05-11 07:46] LABS: ABS Basophils 0.1 10^3/uL (0.0-0.1); ABS Eosinophils 0.1 10^3/uL (0.0-0.5); ABS Lymphocytes 2.1 10^3/uL (1.0-4.8); ABS Neutrophils 6.1 10^3/uL (1.5-7.6); ABS Nucleated RBC 0.01 10^3/ul; Eosinophil % 1.3 %; Hemoglobin 14.6 g/dL (13.2-16.3); Mean Corpuscular Hgb Conc 32.4 g/dL (31-36); Mean Corpuscular Volume 86.4 fL (80-97); Nucleated Red Blood Cells % 0.1 %/100WBC (0.0-0.8); Platelet Count 196 10^3/uL (150-450); White Blood Count 9.3 10^3/uL (3.6-10.2)
[2024-05-11 08:12] LABS: Albumin 2.5 g/dL (3.2-5.2); Calcium 7.8 mg/dL (8.6-10.3); Creatinine, Serum 1.36 mg/dL (0.67-1.17); Digoxin 1.1 ng/ml (0.8-2.0); Globulin 2.6 g/dL (2-4); Magnesium 1.6 mg/dL (1.9-2.7); Phosphorus 3.9 mg/dL (2.5-5.0); Potassium 3.9 mmol/L (3.5-5.0); Total Bilirubin 1.4 mg/dL (0.2-1.0); Total Protein 5.1 g/dL (6.4-8.9); eGFR CKD-EPI 60.7 (>60)
[2024-05-11] MEDS: Magnesium Sulf 4 GM/100 ML IV 4,000 MG/100 ML BAG IVPB ONE (08:40)
[2024-05-11] MEDS ORDERED: Amiodarone 400 mg TAB PO SCH (09:00)
[2024-05-11] MEDS: Ferric Gluconate IV 250 MG in NS 0.9% 250 ml 200 ML IVPB SCH (15:50)
[2024-05-12 08:37] LABS: Hematocrit 44.9 % (38-53); Hemoglobin 14.7 g/dL (13.2-16.3); Mean Corpuscular Hemoglobin 28.1 pg (27-33); Mean Corpuscular Hgb Conc 32.8 g/dL (31-36); Mean Corpuscular Volume 85.8 fL (80-97); Mean Platelet Volume 8.7 fL (7.5-11.2); Platelet Count 189 10^3/uL (150-450); Red Blood Count 5.24 10^6/uL (4.06-5.63); Red Cell Distribution Width 18.6 % (12-17); White Blood Count 7.4 10^3/uL (3.6-10.2)
[2024-05-12] MEDS: Digoxin IV 0.5 MG/2 ML AMP (0.25 MG/ML) IV SLOW PU SCH (08:55)
[2024-05-12 09:05] LABS: Calcium 7.6 mg/dL (8.6-10.3); Creatinine, Serum 1.19 mg/dL (0.67-1.17); Magnesium 1.9 mg/dL (1.9-2.7); Potassium 4.2 mmol/L (3.5-5.0); eGFR CKD-EPI 71.2 (>60)
[2024-05-12] MEDS: Furosemide 40 mg/4 ml IV VIAL IV SLOW PU ONE (12:26)
[2024-05-12] MEDS ORDERED: Dextrose 50% Syringe 50 ml 25 GM/50 ML SYRINGE IV PUSH PRN (17:42)
[2024-05-13 06:31] LABS: Calcium 7.8 mg/dL (8.6-10.3); Creatinine, Serum 1.27 mg/dL (0.67-1.17); Magnesium 1.6 mg/dL (1.9-2.7); Potassium 4.2 mmol/L (3.5-5.0); eGFR CKD-EPI 65.9 (>60)
[2024-05-13] MEDS: Albuterol HFA INHALER 8 gm MDI INH PRN (11:31)
[2024-05-14 07:14] LABS: Hematocrit 43.8 % (38-53); Mean Corpuscular Hemoglobin 28.1 pg (27-33); Mean Corpuscular Hgb Conc 31.9 g/dL (31-36); Mean Platelet Volume 8.4 fL (7.5-11.2); Platelet Count 179 10^3/uL (150-450); Red Blood Count 4.98 10^6/uL (4.06-5.63); Red Cell Distribution Width 20.4 % (12-17); White Blood Count 10.3 10^3/uL (3.6-10.2)
[2024-05-14 07:44] LABS: Anion Gap 7 mmol/L (2-16); Blood Urea Nitrogen 27 mg/dL (6-24); CO2 Carbon Dioxide 24 mmol/L (22-32); Calcium 7.7 mg/dL (8.6-10.3); Chloride 104 mmol/L (101-111); Creatinine, Serum 1.12 mg/dL (0.67-1.17); Glucose 92 mg/dL (70-100); Magnesium 1.7 mg/dL (1.9-2.7); Sodium 135 mmol/L (135-145); eGFR CKD-EPI 76.6 (>60)
[2024-05-14] MEDS: Digoxin IV 0.5 MG/2 ML AMP (0.25 MG/ML) IV SLOW PU SCH (07:54)
[2024-05-14] MEDS ORDERED: Flumazenil 0.5 mg/5 ml 0.1 MG/ML 5 ml VIAL ONE (08:39)
[2024-05-14] MEDS ORDERED: fentaNYL 100 mcg/2 ml 50 MCG/ML VIAL ONE (08:39)
[2024-05-14] MEDS ORDERED: Naloxone 0.4 mg VIAL 0.4 mg/ml 1 ml VIAL ONE (08:39)
[2024-05-14] MEDS ORDERED: Midazolam 5 mg/5 ml VIAL 1 mg/ml 5 ml VIAL (5 mg) ONE (08:40)
[2024-05-14] MEDS: fentaNYL 100 mcg/2 ml 50 MCG/ML VIAL IV SLOW PU ONE (10:04)
[2024-05-14] MEDS: Midazolam 10 mg/10 ml VIAL 1 mg/ml 10 ml VIAL (10 mg) IV SLOW PU ONE (10:05)
[2024-05-14 12:47] LABS: Potassium, Whole Blood 4.2 mmol/L (3.4-4.5)
[2024-05-15 06:46] LABS: ABS Basophils 0.1 10^3/uL (0.0-0.1); ABS Eosinophils 0.2 10^3/uL (0.0-0.5); ABS Lymphocytes 1.3 10^3/uL (1.0-4.8); ABS Monocytes 1.2 10^3/uL (0.0-1.1); ABS Neutrophils 5.7 10^3/uL (1.5-7.6); ABS Nucleated RBC 0.01 10^3/ul; Eosinophil % 2.1 %; Hematocrit 41.5 % (38-53); Hemoglobin 13.6 g/dL (13.2-16.3); Lymphocyte % 15.5 %; Mean Corpuscular Hemoglobin 28.3 pg (27-33); Mean Corpuscular Hgb Conc 32.8 g/dL (31-36); Mean Corpuscular Volume 86.4 fL (80-97); Mean Platelet Volume 8.5 fL (7.5-11.2); Nucleated Red Blood Cells % 0.1 %/100WBC (0.0-0.8); Platelet Count 201 10^3/uL (150-450); Red Blood Count 4.81 10^6/uL (4.06-5.63); Red Cell Distribution Width 19.2 % (12-17); White Blood Count 8.4 10^3/uL (3.6-10.2)
[2024-05-15 07:40] LABS: Calcium 7.8 mg/dL (8.6-10.3); Creatinine, Serum 1.06 mg/dL (0.67-1.17); Magnesium 1.7 mg/dL (1.9-2.7); Potassium 4.3 mmol/L (3.5-5.0); eGFR CKD-EPI 81.9 (>60)
[2024-05-15] MEDS: Magnesium Sulfate 2 gm BAG 2 GM/50 ML BAG IVPB ONE (08:26)
[2024-05-15] MEDS: Furosemide 40 mg/4 ml IV VIAL IV SCH (16:00)
[2024-05-16 06:10] LABS: ABS Basophils 0.1 10^3/uL (0.0-0.1); ABS Eosinophils 0.2 10^3/uL (0.0-0.5); ABS Lymphocytes 1.2 10^3/uL (1.0-4.8); ABS Monocytes 1.2 10^3/uL (0.0-1.1); ABS Neutrophils 6.7 10^3/uL (1.5-7.6); Eosinophil % 1.7 %; Hematocrit 38.3 % (38-53); Hemoglobin 12.5 g/dL (13.2-16.3); Lymphocyte % 13.1 %; Mean Corpuscular Hgb Conc 32.5 g/dL (31-36); Mean Corpuscular Volume 86.2 fL (80-97); Mean Platelet Volume 8.5 fL (7.5-11.2); Platelet Count 187 10^3/uL (150-450); Red Blood Count 4.45 10^6/uL (4.06-5.63); Red Cell Distribution Width 19.4 % (12-17); White Blood Count 9.4 10^3/uL (3.6-10.2)
[2024-05-16 07:08] LABS: Calcium 7.7 mg/dL (8.6-10.3); Creatinine, Serum 1.05 mg/dL (0.67-1.17); Magnesium 1.8 mg/dL (1.9-2.7); Phosphorus 2.8 mg/dL (2.5-5.0); Potassium 3.8 mmol/L (3.5-5.0); eGFR CKD-EPI 82.8 (>60)
[2024-05-16] MEDS: Furosemide 20 mg/2 ml IV VIAL IV SCH (08:00)
[2024-05-16] MEDS: Potassium Chloride LIQUID 20 MEQ/15 ML LIQUID PO SCH (08:03)
[2024-05-16] MEDS ORDERED: Furosemide 20 mg/2 ml IV VIAL IV ONE (09:00)
[2024-05-17 05:48] LABS: ABS Basophils 0.1 10^3/uL (0.0-0.1); ABS Eosinophils 0.2 10^3/uL (0.0-0.5); ABS Lymphocytes 1.4 10^3/uL (1.0-4.8); ABS Neutrophils 5.5 10^3/uL (1.5-7.6); ABS Nucleated RBC 0.01 10^3/ul; Hematocrit 38.5 % (38-53); Hemoglobin 12.6 g/dL (13.2-16.3); Lymphocyte % 17.2 %; Mean Corpuscular Hemoglobin 28.3 pg (27-33); Mean Corpuscular Hgb Conc 32.7 g/dL (31-36); Mean Corpuscular Volume 86.5 fL (80-97); Mean Platelet Volume 8.4 fL (7.5-11.2); Nucleated Red Blood Cells % 0.1 %/100WBC (0.0-0.8); Platelet Count 194 10^3/uL (150-450); Red Blood Count 4.44 10^6/uL (4.06-5.63); Red Cell Distribution Width 19.8 % (12-17); White Blood Count 8.2 10^3/uL (3.6-10.2)
[2024-05-17 06:29] LABS: Calcium 7.7 mg/dL (8.6-10.3); Creatinine, Serum 1.12 mg/dL (0.67-1.17); Magnesium 1.7 mg/dL (1.9-2.7); Potassium 3.7 mmol/L (3.5-5.0); eGFR CKD-EPI 76.6 (>60)
[2024-05-17] MEDS: Potassium Chlor 10 meq TAB PO ONE (09:33)
[2024-05-17] MEDS: Magnesium Sulfate 2 gm BAG 2 GM/50 ML BAG IVPB ONE (09:39)
[2024-05-17] MEDS ORDERED: Mometasone/Formoter 100/5 MDI INH PRN (15:52)
[2024-05-17] MEDS: Mometasone/Formoter 100/5 MDI INH SCH (16:50)
[2024-05-17] MEDS: Furosemide 40 mg/4 ml IV VIAL IV SCH (22:28)
[2024-05-18] MEDS: Acetaminophen IV 1 GM/100ML 1,000 MG/100 ML BAG IV ONE (02:03)
[2024-05-18 06:55] LABS: ABS Basophils 0.1 10^3/uL (0.0-0.1); ABS Eosinophils 0.3 10^3/uL (0.0-0.5); ABS Monocytes 1.1 10^3/uL (0.0-1.1); ABS Neutrophils 5.3 10^3/uL (1.5-7.6); Hematocrit 40.3 % (38-53); Hemoglobin 13.4 g/dL (13.2-16.3); Lymphocyte % 22.5 %; Mean Corpuscular Hemoglobin 28.6 pg (27-33); Mean Corpuscular Hgb Conc 33.1 g/dL (31-36); Mean Corpuscular Volume 86.3 fL (80-97); Mean Platelet Volume 8.6 fL (7.5-11.2); Platelet Count 220 10^3/uL (150-450); Red Blood Count 4.67 10^6/uL (4.06-5.63); Red Cell Distribution Width 19.3 % (12-17); White Blood Count 8.7 10^3/uL (3.6-10.2)
[2024-05-18 07:32] LABS: Calcium 7.6 mg/dL (8.6-10.3); Creatinine, Serum 1.19 mg/dL (0.67-1.17); Phosphorus 3.8 mg/dL (2.5-5.0); eGFR CKD-EPI 71.2 (>60)
[2024-05-19 06:19] LABS: Hematocrit 39.3 % (38-53); Hemoglobin 12.9 g/dL (13.2-16.3); Mean Corpuscular Hemoglobin 28.3 pg (27-33); Mean Corpuscular Hgb Conc 32.9 g/dL (31-36); Mean Corpuscular Volume 86.2 fL (80-97); Mean Platelet Volume 8.4 fL (7.5-11.2); Platelet Count 226 10^3/uL (150-450); Red Blood Count 4.57 10^6/uL (4.06-5.63); Red Cell Distribution Width 19.4 % (12-17); White Blood Count 7.4 10^3/uL (3.6-10.2)
[2024-05-19 06:38] LABS: Calcium 7.7 mg/dL (8.6-10.3); Creatinine, Serum 1.15 mg/dL (0.67-1.17); Magnesium 1.9 mg/dL (1.9-2.7); Potassium 4.3 mmol/L (3.5-5.0); eGFR CKD-EPI 74.2 (>60)
[2024-05-20 05:58] LABS: Hematocrit 37.7 % (38-53); Hemoglobin 12.3 g/dL (13.2-16.3); Mean Corpuscular Hemoglobin 28.2 pg (27-33); Mean Corpuscular Hgb Conc 32.6 g/dL (31-36); Mean Corpuscular Volume 86.5 fL (80-97); Mean Platelet Volume 8.1 fL (7.5-11.2); Platelet Count 228 10^3/uL (150-450); Red Blood Count 4.36 10^6/uL (4.06-5.63); Red Cell Distribution Width 19.2 % (12-17); White Blood Count 7.9 10^3/uL (3.6-10.2)
[2024-05-20 06:25] LABS: Calcium 7.9 mg/dL (8.6-10.3); Creatinine, Serum 1.18 mg/dL (0.67-1.17); Magnesium 1.8 mg/dL (1.9-2.7); Potassium 4.3 mmol/L (3.5-5.0)
[2024-05-20] MEDS: Magnesium Sulfate IV 1GM/100ML 1 GM/100 ML BAG IV ONE (10:14)
[2024-05-20 18:40] LABS: Urine Benzodiazepine Screen None Detected (None Detect); Urine Cannabinoids Screen None Detected (None Detect); Urine Opiates Screen None Detected (None Detect)
[2024-05-20 19:00] LABS: Urine Buprenorphine Screen None Detected (None Detect); Urine Fentanyl Screen None Detected (None Detect); Urine Hydrocodone Screen None Detected (None Detect)
[2024-05-21 06:14] LABS: ABS Basophils 0.1 10^3/uL (0.0-0.1); ABS Eosinophils 0.3 10^3/uL (0.0-0.5); ABS Lymphocytes 1.9 10^3/uL (1.0-4.8); ABS Neutrophils 5.6 10^3/uL (1.5-7.6); ABS Nucleated RBC 0.01 10^3/ul; Eosinophil % 3.5 %; Hematocrit 39.6 % (38-53); Mean Corpuscular Hemoglobin 28.2 pg (27-33); Mean Corpuscular Hgb Conc 32.9 g/dL (31-36); Mean Platelet Volume 8.1 fL (7.5-11.2); Nucleated Red Blood Cells % 0.1 %/100WBC (0.0-0.8); Platelet Count 243 10^3/uL (150-450); Red Blood Count 4.61 10^6/uL (4.06-5.63); White Blood Count 8.9 10^3/uL (3.6-10.2)
[2024-05-21 06:28] LABS: Calcium 8.1 mg/dL (8.6-10.3); Creatinine, Serum 1.18 mg/dL (0.67-1.17); Potassium 4.8 mmol/L (3.5-5.0)
[2024-05-21] MEDS: Polyethylene Glycol 3350 17 GM PACKET PO SCH (16:25)
[2024-05-22 06:21] LABS: ABS Basophils 0.1 10^3/uL (0.0-0.1); ABS Eosinophils 0.3 10^3/uL (0.0-0.5); ABS Lymphocytes 1.8 10^3/uL (1.0-4.8); ABS Monocytes 0.9 10^3/uL (0.0-1.1); ABS Neutrophils 5.4 10^3/uL (1.5-7.6); ABS Nucleated RBC 0.01 10^3/ul; Eosinophil % 4.1 %; Hematocrit 39.8 % (38-53); Hemoglobin 13.5 g/dL (13.2-16.3); Lymphocyte % 21.2 %; Mean Corpuscular Hemoglobin 29.1 pg (27-33); Mean Corpuscular Hgb Conc 33.9 g/dL (31-36); Mean Corpuscular Volume 85.8 fL (80-97); Mean Platelet Volume 8.1 fL (7.5-11.2); Nucleated Red Blood Cells % 0.1 %/100WBC (0.0-0.8); Platelet Count 225 10^3/uL (150-450); Red Blood Count 4.64 10^6/uL (4.06-5.63); Red Cell Distribution Width 19.2 % (12-17); White Blood Count 8.5 10^3/uL (3.6-10.2)
[2024-05-22 06:31] LABS: Albumin 2.7 g/dL (3.2-5.2); Albumin/Globulin Ratio 0.9 (1-3); Calcium 8.1 mg/dL (8.6-10.3); Creatinine, Serum 1.06 mg/dL (0.67-1.17); Magnesium 2.1 mg/dL (1.9-2.7); Phosphorus 4.4 mg/dL (2.5-5.0); Potassium 4.7 mmol/L (3.5-5.0); Total Bilirubin 0.7 mg/dL (0.2-1.0); Total Protein 5.7 g/dL (6.4-8.9); eGFR CKD-EPI 81.9 (>60)
[2024-05-23 06:25] LABS: ABS Basophils 0.1 10^3/uL (0.0-0.1); ABS Eosinophils 0.3 10^3/uL (0.0-0.5); ABS Monocytes 0.9 10^3/uL (0.0-1.1); ABS Neutrophils 4.2 10^3/uL (1.5-7.6); Eosinophil % 4.4 %; Hemoglobin 12.7 g/dL (13.2-16.3); Lymphocyte % 26.5 %; Mean Corpuscular Hemoglobin 27.9 pg (27-33); Mean Corpuscular Hgb Conc 32.6 g/dL (31-36); Mean Corpuscular Volume 85.5 fL (80-97); Mean Platelet Volume 8.1 fL (7.5-11.2); Platelet Count 214 10^3/uL (150-450); Red Blood Count 4.56 10^6/uL (4.06-5.63); Red Cell Distribution Width 19.2 % (12-17); White Blood Count 7.6 10^3/uL (3.6-10.2)
[2024-05-23 08:01] LABS: Albumin 2.7 g/dL (3.2-5.2); Albumin/Globulin Ratio 0.9 (1-3); Creatinine, Serum 1.17 mg/dL (0.67-1.17); Magnesium 2.1 mg/dL (1.9-2.7); Phosphorus 4.4 mg/dL (2.5-5.0); Potassium 4.5 mmol/L (3.5-5.0); Total Bilirubin 0.7 mg/dL (0.2-1.0); Total Protein 5.7 g/dL (6.4-8.9); eGFR CKD-EPI 72.7 (>60)
[2024-05-23 21:11] VITALS: BP 104/71
== END 2024-05-23 22:35 | disposition home or self-care (01) | DRG 194 ==
LOC: ED 02:02 → EDHOLD 02:02 → SUATTDRO 11:53 → MEDTELE 17:06 → SUATTDRO 05-12 13:55
PROVIDERS: ADMIT Internal Medicine; ATTEND Internal Medicine

== ENCOUNTER 2024-06-16 20:38 | Inpatient (IN) ==
[~2024-06-16 20:38] MED LIST: Albuterol/Ipratropium NEB.SOL (2.5/0.5 MG) 3 ML NEB.SOLN ONE; methylPREDNISolone SOD SUCC 125 mg 2 ML VIAL ONE
[2024-06-16] MEDS ORDERED: LORazepam 2 mg VIAL 1 ml ONE (20:39)
[2024-06-16] MEDS: LORazepam 2 mg VIAL 1 ml IV PUSH ONE ×2 (20:41→22:10)
[2024-06-16] MEDS ORDERED: Rocuronium 50 mg VIAL 10 mg/ml 5 ml VIAL (50 mg) ONE ×2 (20:44→20:57)
[2024-06-16] MEDS ORDERED: Succinylcholine 200 mg VIAL 20 mg/ml 10 ml VIAL (200 mg) ONE ×2 (20:44→20:57)
[2024-06-16] MEDS ORDERED: Etomidate 40 mg/20 ml (2 MG/ML) 20 ml VIAL (40 mg) ONE (20:49)
[2024-06-16 21:04] LABS: PCO2 Arterial 44 mmHg (35-45); PO2 Arterial 220 mmHg (80-100)
[2024-06-16] MEDS: Albuterol/Ipratropium NEB.SOL (2.5/0.5 MG) 3 ML NEB.SOLN INH ONE (21:05)
[2024-06-16] MEDS ORDERED: Lorazepam PYXIS KEY PRN ×2 (21:08→22:10)
[2024-06-16] MEDS: methylPREDNISolone SOD SUCC 125 mg 2 ML VIAL IV ONE (21:16)
[2024-06-16 21:18] LABS: ABS Basophils 0.1 10^3/uL (0.0-0.1); ABS Eosinophils 0.7 10^3/uL (0.0-0.5); ABS Lymphocytes 2.2 10^3/uL (1.0-4.8); ABS Monocytes 1.3 10^3/uL (0.0-1.1); ABS Neutrophils 11.1 10^3/uL (1.5-7.6); ABS Nucleated RBC 0.01 10^3/ul; Eosinophil % 4.6 %; Hematocrit 43.5 % (38-53); Hemoglobin 13.5 g/dL (13.2-16.3); Lymphocyte % 14.2 %; Mean Corpuscular Hemoglobin 27.6 pg (27-33); Mean Corpuscular Volume 89.1 fL (80-97); Platelet Count 222 10^3/uL (150-450); Red Blood Count 4.89 10^6/uL (4.06-5.63); Red Cell Distribution Width 20.9 % (12-17); White Blood Count 15.4 10^3/uL (3.6-10.2)
[2024-06-16 21:20] LABS: Activated Partial Thrombo Time 31.2 seconds (26.0-38.0); INR 1.26 (0.85-1.14)
[2024-06-16 21:31] LABS: Albumin 3.6 g/dL (3.2-5.2); Albumin/Globulin Ratio 1.2 (1-3); C Reactive Protein 29.77 mg/L (<8.01); Calcium 8.7 mg/dL (8.6-10.3); Creatinine, Serum 0.96 mg/dL (0.67-1.17); Globulin 3.1 g/dL (2-4); Potassium 3.8 mmol/L (3.5-5.0); Total Bilirubin 1.2 mg/dL (0.2-1.0); Total Protein 6.7 g/dL (6.4-8.9); eGFR CKD-EPI 92.2 (>60)
[2024-06-16] MEDS: Furosemide 40 mg/4 ml IV VIAL IV SLOW PU ONE (22:00)
[2024-06-16 22:21] LABS: Urine Appearance Clear; Urine Bacteria Absent /HPF (Absent); Urine Bilirubin Negative (Negative); Urine Blood Trace (Negative); Urine Color Light-Yellow; Urine Glucose 4+ (>=1000 mg/dL) (Negative); Urine Ketones Negative (Negative); Urine Nitrite Negative (Negative); Urine Protein 2+ (>=100 mg/dL) (Negative); Urine Red Blood Cell 2+(6-10/hpf) /HPF (0-Trace); Urine Urobilinogen Negative (Negative); Urine White Blood Cell 1+(6-10/hpf) /HPF (0-Trace); Urine pH 5.5 (5.0-8.0)
[2024-06-16 22:39] LABS: High Sensitivity Troponin 1 Hr 17 pg/mL (<20)
[2024-06-16] MEDS: Haloperidol 5 mg/ml SDV IV/IM 5 MG/ML AMP IV SLOW PU ONE (22:47)
[2024-06-16] MEDS: cefTRIAXone 1 gm/50 mL D5W 1 GM/50 ML BAG IV ONE (22:51)
[2024-06-16 23:01] LABS: PCO2 Arterial 41 mmHg (35-45); PO2 Arterial 140 mmHg (80-100)
[2024-06-17] MEDS ORDERED: Albuterol/Ipratropium NEB.SOL (2.5/0.5 MG) 3 ML NEB.SOLN INH PRN (00:37)
[2024-06-17] MEDS ORDERED: Albuterol 2.5mg/3 ml (0.083%) NEB.SOLN INH PRN (00:38)
[2024-06-17] MEDS ORDERED: Dextrose 50% Syringe 50 ml 25 GM/50 ML SYRINGE IV PUSH PRN (00:41)
[2024-06-17] MEDS ORDERED: Enoxaparin 80 MG/0.8 ML SYR SUBCUT SCH (01:00)
[2024-06-17] MEDS: Enoxaparin 80 MG/0.8 ML SYR SUBCUT ONE (01:41)
[2024-06-17 02:04] LABS: Urine Appearance Clear; Urine Bilirubin Negative (Negative); Urine Blood Trace (Negative); Urine Color Colorless; Urine Glucose 3+ (>=300 mg/dL) (Negative); Urine Ketones Negative (Negative); Urine Nitrite Negative (Negative); Urine Protein Negative (Negative); Urine Specific Gravity 1.006 (1.002-1.030); Urine Urobilinogen Negative (Negative)
[2024-06-17 02:07] LABS: Urine Benzodiazepine Screen None Detected (None Detect); Urine Cannabinoids Screen Presumptive Positive (None Detect); Urine Opiates Screen None Detected (None Detect)
[2024-06-17 05:28] LABS: ABS Lymphocytes 0.4 10^3/uL (1.0-4.8); ABS Monocytes 0.1 10^3/uL (0.0-1.1); ABS Neutrophils 8.5 10^3/uL (1.5-7.6); ABS Nucleated RBC 0.01 10^3/ul; Hematocrit 41.3 % (38-53); Hemoglobin 13.5 g/dL (13.2-16.3); Lymphocyte % 4.1 %; Mean Corpuscular Hemoglobin 28.1 pg (27-33); Mean Corpuscular Hgb Conc 32.6 g/dL (31-36); Mean Corpuscular Volume 86.1 fL (80-97); Mean Platelet Volume 8.5 fL (7.5-11.2); Nucleated Red Blood Cells % 0.1 %/100WBC (0.0-0.8); Platelet Count 175 10^3/uL (150-450); Red Cell Distribution Width 19.7 % (12-17)
[2024-06-17 06:12] LABS: Albumin 3.4 g/dL (3.2-5.2); Albumin/Globulin Ratio 1.2 (1-3); Calcium 8.8 mg/dL (8.6-10.3); Creatinine, Serum 0.94 mg/dL (0.67-1.17); Globulin 2.9 g/dL (2-4); Magnesium 1.7 mg/dL (1.9-2.7); Potassium 4.1 mmol/L (3.5-5.0); Total Bilirubin 1.1 mg/dL (0.2-1.0); Total Protein 6.3 g/dL (6.4-8.9); eGFR CKD-EPI 94.6 (>60)
[2024-06-17] MEDS: Magnesium Sulfate 2 gm BAG 2 GM/50 ML BAG IVPB ONE (07:31)
[2024-06-17] MEDS: Mometasone/Formoter 100/5 MDI INH SCH (09:44)
[2024-06-17] MEDS: Furosemide 40 mg/4 ml IV VIAL IV ONE (09:56)
[2024-06-17] MEDS: Azithromycin 500 mg/250 mL NS IVPB ONE (16:53)
[2024-06-17] MEDS: cefTRIAXone 1 gm/50 mL D5W 1 GM/50 ML BAG IV SCH (21:38)
[2024-06-18 05:25] LABS: ABS Lymphocytes 0.9 10^3/uL (1.0-4.8); ABS Monocytes 1.3 10^3/uL (0.0-1.1); Hematocrit 41.9 % (38-53); Hemoglobin 13.7 g/dL (13.2-16.3); Lymphocyte % 5.2 %; Mean Corpuscular Hgb Conc 32.7 g/dL (31-36); Mean Corpuscular Volume 85.6 fL (80-97); Mean Platelet Volume 8.3 fL (7.5-11.2); Platelet Count 188 10^3/uL (150-450); Red Cell Distribution Width 20.2 % (12-17); White Blood Count 18.3 10^3/uL (3.6-10.2)
[2024-06-18 06:27] LABS: ALT 9 U/L (7-52); Albumin/Globulin Ratio 1.1 (1-3); Alkaline Phosphatase 72 U/L (35-149); Anion Gap 4 mmol/L (2-16); Blood Urea Nitrogen 31 mg/dL (6-24); CO2 Carbon Dioxide 30 mmol/L (22-32); Calcium 8.1 mg/dL (8.6-10.3); Chloride 103 mmol/L (101-111); Creatinine, Serum 0.88 mg/dL (0.67-1.17); Globulin 2.8 g/dL (2-4); Glucose 111 mg/dL (70-100); Magnesium 2.4 mg/dL (1.9-2.7); Sodium 137 mmol/L (135-145); Total Bilirubin 0.8 mg/dL (0.2-1.0); Total Protein 5.8 g/dL (6.4-8.9); eGFR CKD-EPI 100.3 (>60)
[2024-06-18 07:47] LABS: Potassium Redraw 4.4 mmol/L (3.5-5.0)
[2024-06-18] MEDS ORDERED: Azithromycin 250 MG in NS 0.9% 250 ml 250 ML IVPB SCH (16:00)
[2024-06-19 05:01] LABS: ABS Basophils 0.1 10^3/uL (0.0-0.1); ABS Eosinophils 0.3 10^3/uL (0.0-0.5); ABS Lymphocytes 2.2 10^3/uL (1.0-4.8); ABS Monocytes 1.4 10^3/uL (0.0-1.1); ABS Neutrophils 7.4 10^3/uL (1.5-7.6); ABS Nucleated RBC 0.01 10^3/ul; Eosinophil % 2.3 %; Hematocrit 46.6 % (38-53); Hemoglobin 14.9 g/dL (13.2-16.3); Lymphocyte % 19.1 %; Mean Corpuscular Hemoglobin 27.6 pg (27-33); Mean Corpuscular Hgb Conc 31.9 g/dL (31-36); Mean Corpuscular Volume 86.6 fL (80-97); Mean Platelet Volume 8.1 fL (7.5-11.2); Nucleated Red Blood Cells % 0.1 %/100WBC (0.0-0.8); Platelet Count 229 10^3/uL (150-450); Red Blood Count 5.38 10^6/uL (4.06-5.63); Red Cell Distribution Width 20.7 % (12-17); White Blood Count 11.2 10^3/uL (3.6-10.2)
[2024-06-19 05:47] LABS: Albumin/Globulin Ratio 1.1 (1-3); Calcium 8.2 mg/dL (8.6-10.3); Creatinine, Serum 1.06 mg/dL (0.67-1.17); Globulin 2.8 g/dL (2-4); Magnesium 1.9 mg/dL (1.9-2.7); Potassium 4.3 mmol/L (3.5-5.0); Total Bilirubin 0.6 mg/dL (0.2-1.0); Total Protein 5.8 g/dL (6.4-8.9); eGFR CKD-EPI 81.9 (>60)
[2024-06-19] MEDS: Enoxaparin 40 MG/0.4 ML SYR SUBCUT SCH (12:24)
[2024-06-19 14:41] VITALS: BP 99/66
== END 2024-06-19 15:15 | disposition home or self-care (01) | DRG 194 ==
LOC: ED 20:38 → EDHOLD 21:47 → ICU 06-17 00:14
PROVIDERS: ADMIT Internal Medicine Pulmonary Disease; ATTEND Student in an Organized Health Care Education/Training Program

== ENCOUNTER 2024-06-25 03:05 | Observation (INO) ==
[2024-06-25 04:07] LABS: Hemoglobin 14.8 g/dL (13.2-16.3); INR 1.1 (0.85-1.14); White Blood Count 9.4 10^3/uL (3.6-10.2)
[2024-06-25 04:08] LABS: ABS Basophils 0.1 10^3/uL (0.0-0.1); ABS Eosinophils 0.3 10^3/uL (0.0-0.5); ABS Lymphocytes 1.6 10^3/uL (1.0-4.8); ABS Monocytes 0.6 10^3/uL (0.0-1.1); ABS Neutrophils 6.8 10^3/uL (1.5-7.6); Eosinophil % 3.4 %; Lymphocyte % 17.5 %; Mean Corpuscular Hemoglobin 27.9 pg (27-33); Mean Corpuscular Hgb Conc 32.2 g/dL (31-36); Mean Corpuscular Volume 86.8 fL (80-97); Mean Platelet Volume 7.9 fL (7.5-11.2); Platelet Count 264 10^3/uL (150-450); Red Cell Distribution Width 19.6 % (12-17)
[2024-06-25 04:23] LABS: High Sens Troponin Baseline 25 pg/mL (<20)
[2024-06-25 04:32] LABS: ALT 9 U/L (7-52); AST 26 U/L (13-39); Albumin 3.9 g/dL (3.2-5.2); Albumin/Globulin Ratio 1.1 (1-3); Alcohol, S < 13 mg/dL (<13); Alkaline Phosphatase 102 U/L (35-149); Anion Gap 9 mmol/L (2-16); Blood Urea Nitrogen 20 mg/dL (6-24); CO2 Carbon Dioxide 26 mmol/L (22-32); Calcium 9.1 mg/dL (8.6-10.3); Chloride 102 mmol/L (101-111); Creatinine, Serum 0.91 mg/dL (0.67-1.17); Globulin 3.6 g/dL (2-4); Glucose 119 mg/dL (70-100); Potassium 4.1 mmol/L (3.5-5.0); Sodium 137 mmol/L (135-145); Total Protein 7.5 g/dL (6.4-8.9); eGFR CKD-EPI 98.3 (>60)
[2024-06-25 05:06] LABS: Digoxin 0.3 ng/ml (0.8-2.0)
[2024-06-25 05:33] LABS: High Sensitivity Troponin 1 Hr 25 pg/mL (<20)
[2024-06-25] MEDS: Digoxin IV 0.5 MG/2 ML AMP (0.25 MG/ML) IV SLOW PU ONE (05:39)
[2024-06-25] MEDS ORDERED: Senna TAB 8.6 mg TAB PO PRN (06:02)
[2024-06-25] MEDS ORDERED: Ondansetron 4 mg VIAL 2 MG/ML 2 ml VIAL IV PRN (06:02)
[2024-06-25] MEDS ORDERED: Polyethylene Glycol 3350 17 GM PACKET PO PRN (06:02)
[2024-06-25] MEDS ORDERED: Albuterol HFA INHALER 8 gm MDI INH PRN (06:14)
[2024-06-25 08:38] LABS: Magnesium 2.1 mg/dL (1.9-2.7)
[2024-06-25 09:01] LABS: TSH Ultra Thyroid Stim Horm 0.85 mcIU/mL (0.34-5.60)
[2024-06-25] MEDS: Enoxaparin 40 MG/0.4 ML SYR SUBCUT SCH (09:15)
[2024-06-25] MEDS: Potassium Chloride LIQUID 20 MEQ/15 ML LIQUID PO SCH (09:15)
[2024-06-25 10:56] LABS: % Iron Saturation 22 % (15-55); .Transferrin 233 mg/dL (203-362); Iron 71 ug/dL (50-212); Total Iron Binding Capacity 326 mcg/dL (250-450); Unsaturated Iron Binding 255 ug/dL
[2024-06-25 11:24] LABS: Ferritin 757.5 ng/mL (24-336)
[2024-06-25 11:24] LABS: Urine Benzodiazepine Screen None Detected (None Detect); Urine Cannabinoids Screen Presumptive Positive (None Detect); Urine Opiates Screen None Detected (None Detect)
[2024-06-25] MEDS: Mometasone/Formoter 100/5 MDI INH SCH (11:37)
[2024-06-25] MEDS ORDERED: Dextrose 50% Syringe 50 ml 25 GM/50 ML SYRINGE IV PUSH PRN (14:01)
[2024-06-26] MEDS: Lidocaine PATCH 5% PATCH TRANSDERM SCH (01:42)
[2024-06-26 06:48] LABS: Calcium 8.3 mg/dL (8.6-10.3); Creatinine, Serum 1.1 mg/dL (0.67-1.17); Potassium 4.7 mmol/L (3.5-5.0); eGFR CKD-EPI 78.3 (>60)
[2024-06-26] MEDS ORDERED: Midazolam 5 mg/5 ml VIAL 1 mg/ml 5 ml VIAL (5 mg) ONE (07:58)
[2024-06-26] MEDS ORDERED: fentaNYL 100 mcg/2 ml 50 MCG/ML VIAL ONE (07:58)
[2024-06-26] MEDS ORDERED: Flumazenil 0.5 mg/5 ml 0.1 MG/ML 5 ml VIAL ONE (07:58)
[2024-06-26] MEDS ORDERED: Naloxone 0.4 mg VIAL 0.4 mg/ml 1 ml VIAL ONE (07:58)
[2024-06-26] MEDS: fentaNYL 100 mcg/2 ml 50 MCG/ML VIAL IV SLOW PU ONE (09:04)
[2024-06-26] MEDS: Midazolam 10 mg/10 ml VIAL 1 mg/ml 10 ml VIAL (10 mg) IV SLOW PU ONE (09:04)
[2024-06-26 13:44] VITALS: BP 147/87
== END 2024-06-26 18:25 | disposition home or self-care (01) ==
LOC: EDHOLD 03:05 → ED 03:05 → SUATTDRO 06:02 → MEDTELE 14:56
PROVIDERS: ADMIT Internal Medicine; ATTEND Hospitalist

== ENCOUNTER 2024-07-12 19:45 | Observation (INO) ==
[2024-07-12 23:16] LABS: ABS Basophils 0.1 10^3/uL (0.0-0.1); ABS Eosinophils 0.2 10^3/uL (0.0-0.5); ABS Lymphocytes 1.2 10^3/uL (1.0-4.8); ABS Monocytes 0.6 10^3/uL (0.0-1.1); ABS Neutrophils 7.1 10^3/uL (1.5-7.6); ABS Nucleated RBC 0.01 10^3/ul; Eosinophil % 1.7 %; Hematocrit 40.5 % (38-53); Hemoglobin 13.3 g/dL (13.2-16.3); Lymphocyte % 13.4 %; Mean Corpuscular Hemoglobin 28.4 pg (27-33); Mean Corpuscular Hgb Conc 32.7 g/dL (31-36); Mean Corpuscular Volume 86.8 fL (80-97); Mean Platelet Volume 8.8 fL (7.5-11.2); Nucleated Red Blood Cells % 0.1 %/100WBC (0.0-0.8); Platelet Count 199 10^3/uL (150-450); Red Blood Count 4.67 10^6/uL (4.06-5.63); Red Cell Distribution Width 19.3 % (12-17); White Blood Count 9.2 10^3/uL (3.6-10.2)
[2024-07-12 23:32] LABS: INR 1.32 (0.85-1.14)
[2024-07-12 23:47] LABS: Albumin 3.1 g/dL (3.2-5.2); Albumin/Globulin Ratio 1.1 (1-3); Calcium 8.2 mg/dL (8.6-10.3); Creatinine, Serum 0.95 mg/dL (0.67-1.17); Globulin 2.7 g/dL (2-4); Potassium 4.1 mmol/L (3.5-5.0); Total Bilirubin 0.7 mg/dL (0.2-1.0); Total Protein 5.8 g/dL (6.4-8.9); eGFR CKD-EPI 93.4 (>60)
[2024-07-12] MEDS: Amiodarone 150 mg IVPREMIX 150 MG/100 ML BAG IV ONE (23:47)
[2024-07-13 01:01] LABS: High Sensitivity Troponin 1 Hr 21 pg/mL (<20)
[2024-07-13] MEDS ORDERED: Albuterol HFA INHALER 8 gm MDI INH PRN (03:25)
[2024-07-13] MEDS: Metoprolol Tartrate 5 mg VIAL 5 ml VIAL (1 mg/ml) IV PRN (04:47)
[2024-07-13] MEDS ORDERED: Metoprolol Tartrate 5 mg VIAL 5 ml VIAL (1 mg/ml) IV PRN (05:06)
[2024-07-13] MEDS: Amiodarone 150 mg IVPREMIX 150 MG/100 ML BAG IV ONE (06:26)
[2024-07-13 07:00] LABS: Calcium 8.4 mg/dL (8.6-10.3); Creatinine, Serum 1.19 mg/dL (0.67-1.17); Magnesium 1.8 mg/dL (1.9-2.7); Potassium 4.1 mmol/L (3.5-5.0); eGFR CKD-EPI 71.2 (>60)
[2024-07-13] MEDS: Mometasone/Formoter 100/5 MDI INH SCH (08:14)
[2024-07-13] MEDS: Magnesium Sulfate IV 1GM/100ML 1 GM/100 ML BAG IV ONE (09:13)
[2024-07-13] MEDS: Potassium Chloride LIQUID 20 MEQ/15 ML LIQUID PO SCH (09:19)
[2024-07-13] MEDS ORDERED: Midazolam 5 mg/5 ml VIAL 1 mg/ml 5 ml VIAL (5 mg) ONE (11:33)
[2024-07-13] MEDS ORDERED: fentaNYL 100 mcg/2 ml 50 MCG/ML VIAL ONE (11:33)
[2024-07-13] MEDS ORDERED: Naloxone 0.4 mg VIAL 0.4 mg/ml 1 ml VIAL ONE (11:33)
[2024-07-13] MEDS ORDERED: Flumazenil 0.5 mg/5 ml 0.1 MG/ML 5 ml VIAL ONE (11:33)
[2024-07-13 15:01] LABS: Ferritin 1023.6 ng/mL (24-336)
[2024-07-14 06:05] LABS: Calcium 8.4 mg/dL (8.6-10.3); Creatinine, Serum 1.23 mg/dL (0.67-1.17); Magnesium 1.8 mg/dL (1.9-2.7); Potassium 4.3 mmol/L (3.5-5.0); eGFR CKD-EPI 68.5 (>60)
[2024-07-15 09:22] VITALS: BP 99/66
== END 2024-07-15 10:15 | disposition home or self-care (01) ==
LOC: ED 19:45 → EDHOLD 19:45 → SUATTDRO 07-13 03:15 → ICU 07-13 14:21 → EDHOLD 07-13 15:22 → ICU 07-13 15:22 → EDHOLD 07-13 15:24 → MEDTELE 07-13 15:44
PROVIDERS: ADMIT Internal Medicine; ATTEND Hospitalist

== ENCOUNTER 2024-07-27 08:13 | Inpatient (IN) ==
[2024-07-27] MEDS: Lactated Ringers SEPSIS* BAG 2,400 ML IV ONE (08:53)
[2024-07-27] MEDS: Cefepime 2 GM in Dextrose 2 GM/50 ML BAG IV ONE (08:58)
[2024-07-27 08:59] LABS: ABS Basophils 0.1 10^3/uL (0.0-0.1); ABS Eosinophils 0.1 10^3/uL (0.0-0.5); ABS Lymphocytes 1.1 10^3/uL (1.0-4.8); ABS Monocytes 1.4 10^3/uL (0.0-1.1); ABS Neutrophils 14.5 10^3/uL (1.5-7.6); ABS Nucleated RBC 0.01 10^3/ul; Eosinophil % 0.7 %; Hemoglobin 16.1 g/dL (13.2-16.3); Lymphocyte % 6.2 %; Mean Corpuscular Hemoglobin 28.2 pg (27-33); Mean Corpuscular Hgb Conc 32.3 g/dL (31-36); Mean Corpuscular Volume 87.3 fL (80-97); Mean Platelet Volume 8.7 fL (7.5-11.2); Nucleated Red Blood Cells % 0.1 %/100WBC (0.0-0.8); Platelet Count 219 10^3/uL (150-450); Red Blood Count 5.73 10^6/uL (4.06-5.63); Red Cell Distribution Width 18.3 % (12-17); White Blood Count 17.3 10^3/uL (3.6-10.2)
[2024-07-27 09:26] LABS: Albumin 3.7 g/dL (3.2-5.2); Albumin/Globulin Ratio 1.1 (1-3); C Reactive Protein 180.17 mg/L (<8.01); Calcium 8.9 mg/dL (8.6-10.3); Globulin 3.4 g/dL (2-4); Potassium 3.9 mmol/L (3.5-5.0); Total Bilirubin 1.3 mg/dL (0.2-1.0); Total Protein 7.1 g/dL (6.4-8.9); eGFR CKD-EPI 87.8 (>60)
[2024-07-27] MEDS: metroNIDAZOLE IV 500 MG/100ML 500 MG/100 ML BAG IVPB ONE (09:44)
[2024-07-27 10:17] LABS: Activated Partial Thrombo Time 30.4 seconds (26.0-38.0); INR 1.14 (0.85-1.14)
[2024-07-27 10:27] LABS: High Sensitivity Troponin 1 Hr 20 pg/mL (<20)
[2024-07-27 10:29] LABS: Urine Appearance Clear; Urine Bilirubin Negative (Negative); Urine Blood Trace (Negative); Urine Color Light-Yellow; Urine Glucose 4+ (>=1000 mg/dL) (Negative); Urine Ketones Negative (Negative); Urine Nitrite Negative (Negative); Urine Protein Negative (Negative); Urine Specific Gravity 1.008 (1.002-1.030); Urine Urobilinogen 1+ (Negative); Urine pH 6.5 (5.0-8.0)
[2024-07-27 10:38] LABS: Urine Bacteria Absent /HPF (Absent); Urine Red Blood Cell Trace(0-2/hpf) /HPF (0-Trace); Urine White Blood Cell Trace(0-5/hpf) /HPF (0-Trace)
[2024-07-27] MEDS: Vancomycin 1,250 MG in NS 0.9% 250 ml 250 ML IVPB ONE (11:23)
[2024-07-27] MEDS ORDERED: Albuterol HFA INHALER 8 gm MDI INH PRN (12:05)
[2024-07-27] MEDS ORDERED: Zosyn per Pharmacy NOTE FOLLOW UP SCH (14:00)
[2024-07-27] MEDS ORDERED: Vancomycin per Pharmacy 1 EA NOTE FOLLOW UP SCH (14:00)
[2024-07-27] MEDS: Vancomycin 1,250 MG in NS 0.9% 250 ml 250 ML IVPB SCH (21:28)
[2024-07-27] MEDS: Morphine 2 MG/ML SYRINGE IV ONE (23:38)
[2024-07-28] MEDS: ZOSYN 3.375 GM Q8H per EXTENDED INFUSION IV SCH ×2 (00:09→06:36)
[2024-07-28] MEDS: Mometasone/Formoter 100/5 MDI INH PRN (01:15)
[2024-07-28 05:44] LABS: ABS Basophils 0.1 10^3/uL (0.0-0.1); ABS Eosinophils 0.3 10^3/uL (0.0-0.5); ABS Lymphocytes 1.3 10^3/uL (1.0-4.8); ABS Monocytes 1.1 10^3/uL (0.0-1.1); ABS Neutrophils 10.6 10^3/uL (1.5-7.6); Eosinophil % 2.5 %; Hematocrit 43.2 % (38-53); Hemoglobin 13.8 g/dL (13.2-16.3); Lymphocyte % 9.3 %; Mean Corpuscular Hemoglobin 27.7 pg (27-33); Mean Corpuscular Hgb Conc 31.9 g/dL (31-36); Mean Corpuscular Volume 86.8 fL (80-97); Mean Platelet Volume 8.5 fL (7.5-11.2); Platelet Count 204 10^3/uL (150-450); Red Blood Count 4.97 10^6/uL (4.06-5.63); Red Cell Distribution Width 18.2 % (12-17); White Blood Count 13.5 10^3/uL (3.6-10.2)
[2024-07-28 06:31] LABS: Albumin 2.8 g/dL (3.2-5.2); Albumin/Globulin Ratio 1.1 (1-3); Calcium 8.1 mg/dL (8.6-10.3); Creatinine, Serum 0.83 mg/dL (0.67-1.17); Globulin 2.6 g/dL (2-4); Potassium 4.6 mmol/L (3.5-5.0); Total Bilirubin 0.8 mg/dL (0.2-1.0); Total Protein 5.4 g/dL (6.4-8.9); eGFR CKD-EPI 102.1 (>60)
[2024-07-28] MEDS: Iodixanol 320 (CONTRAST) 200 ML SDV IV ONE (18:51)
[2024-07-28] MEDS: Morphine 2 MG/ML SYRINGE IV PRN (23:02)
[2024-07-29 10:27] LABS: ABS Basophils 0.1 10^3/uL (0.0-0.1); ABS Eosinophils 0.5 10^3/uL (0.0-0.5); ABS Lymphocytes 0.9 10^3/uL (1.0-4.8); ABS Monocytes 1.2 10^3/uL (0.0-1.1); ABS Neutrophils 5.7 10^3/uL (1.5-7.6); ABS Nucleated RBC 0.01 10^3/ul; Eosinophil % 6.3 %; Hematocrit 45.1 % (38-53); Hemoglobin 14.7 g/dL (13.2-16.3); Lymphocyte % 10.4 %; Mean Corpuscular Hemoglobin 28.4 pg (27-33); Mean Corpuscular Hgb Conc 32.6 g/dL (31-36); Mean Platelet Volume 8.5 fL (7.5-11.2); Nucleated Red Blood Cells % 0.1 %/100WBC (0.0-0.8); Platelet Count 228 10^3/uL (150-450); Red Blood Count 5.19 10^6/uL (4.06-5.63); White Blood Count 8.4 10^3/uL (3.6-10.2)
[2024-07-29 10:43] LABS: Albumin 2.8 g/dL (3.2-5.2); Albumin/Globulin Ratio 0.9 (1-3); Calcium 8.4 mg/dL (8.6-10.3); Creatinine, Serum 0.77 mg/dL (0.67-1.17); Potassium 4.5 mmol/L (3.5-5.0); Total Bilirubin 0.5 mg/dL (0.2-1.0); Total Protein 5.8 g/dL (6.4-8.9); eGFR CKD-EPI 104.4 (>60)
[2024-07-29] MEDS: Vancomycin Trough Check NOTE FOLLOW UP ONE (11:16)
[2024-07-29] MEDS ORDERED: Sulfur Hexaflouride MICROSPHR 25 MG VIAL IV PRN (16:03)
[2024-07-29] MEDS: Enoxaparin 80 MG/0.8 ML SYR SUBCUT SCH (18:10)
[2024-07-30 06:57] LABS: ABS Basophils 0.1 10^3/uL (0.0-0.1); ABS Eosinophils 0.5 10^3/uL (0.0-0.5); ABS Lymphocytes 1.5 10^3/uL (1.0-4.8); ABS Monocytes 1.2 10^3/uL (0.0-1.1); ABS Neutrophils 4.6 10^3/uL (1.5-7.6); Eosinophil % 6.3 %; Hematocrit 44.9 % (38-53); Hemoglobin 14.5 g/dL (13.2-16.3); Lymphocyte % 18.8 %; Mean Corpuscular Hemoglobin 28.6 pg (27-33); Mean Corpuscular Hgb Conc 32.2 g/dL (31-36); Mean Corpuscular Volume 88.8 fL (80-97); Mean Platelet Volume 7.9 fL (7.5-11.2); Platelet Count 218 10^3/uL (150-450); Red Blood Count 5.06 10^6/uL (4.06-5.63); Red Cell Distribution Width 18.5 % (12-17); White Blood Count 7.9 10^3/uL (3.6-10.2)
[2024-07-30 07:11] LABS: Anion Gap 9 mmol/L (2-16); Blood Urea Nitrogen 14 mg/dL (6-24); CO2 Carbon Dioxide 23 mmol/L (22-32); Calcium 8.4 mg/dL (8.6-10.3); Chloride 104 mmol/L (101-111); Creatinine, Serum 0.74 mg/dL (0.67-1.17); Glucose 95 mg/dL (70-100); Magnesium 1.8 mg/dL (1.9-2.7); Sodium 136 mmol/L (135-145); eGFR CKD-EPI 105.7 (>60)
[2024-07-30 07:34] LABS: Potassium, Whole Blood 4.7 mmol/L (3.4-4.5)
[2024-07-30] MEDS: Magnesium Sulfate IV 1GM/100ML 1 GM/100 ML BAG IV ONE (09:42)
[2024-07-30] MEDS ORDERED: Senna TAB 8.6 mg TAB PO PRN (11:26)
[2024-07-30] MEDS: Lidocaine PATCH 5% PATCH TRANSDERM SCH (11:39)
[2024-07-30] MEDS: Morphine ORAL CONCENTRATE 5 MG/0.25 ML ORAL.SYRIN PO PRN (14:57)
[2024-07-30] MEDS: Enoxaparin 80 MG/0.8 ML SYR SUBCUT ONE (18:44)
[2024-07-31 06:25] LABS: Creatinine, Serum 0.79 mg/dL (0.67-1.17); eGFR CKD-EPI 103.6 (>60)
[2024-07-31 07:27] LABS: Albumin 2.9 g/dL (3.2-5.2); Albumin/Globulin Ratio 0.9 (1-3); Calcium 8.4 mg/dL (8.6-10.3); Globulin 3.1 g/dL (2-4); Magnesium 1.9 mg/dL (1.9-2.7); Potassium 4.8 mmol/L (3.5-5.0); Total Bilirubin 0.4 mg/dL (0.2-1.0)
[2024-07-31] MEDS ORDERED: Phenylephrine IV 10 MG/ML 1 ml VIAL ONE (10:47)
[2024-07-31] MEDS ORDERED: Propofol 10 MG/ML 20 ML BTL ONE (10:48)
[2024-07-31] MEDS ORDERED: Lidocaine 1% VIAL 10 MG/ML 30 ML VIAL ONE (10:54)
[2024-07-31] MEDS ORDERED: Midazolam 2 mg/2 ml VIAL 1 mg/ml 2 ml VIAL (2 mg) ONE (11:00)
[2024-07-31] MEDS ORDERED: fentaNYL 100 mcg/2 ml 50 MCG/ML VIAL IV PRN (11:11)
[2024-07-31] MEDS ORDERED: Naloxone 0.4 mg VIAL 0.4 mg/ml 1 ml VIAL IV PRN (11:11)
[2024-07-31] MEDS ORDERED: Ondansetron 4 mg VIAL 2 MG/ML 2 ml VIAL IV PRN (11:11)
[2024-07-31] MEDS ORDERED: Metoclopramide 5 MG/ML VIAL (10 mg) IV PRN (11:11)
[2024-07-31] MEDS ORDERED: Midazolam 5 mg/5 ml VIAL 1 mg/ml 5 ml VIAL (5 mg) ONE (11:12)
[2024-07-31] MEDS ORDERED: fentaNYL 250 mcg/5 ml 50 MCG/ML 5 ml VIAL (250 MCG) ONE (11:13)
[2024-07-31] MEDS ORDERED: NS 0.45% 1000 ml BAG 1,000 ML IV SCH (12:00)
[2024-07-31] MEDS ORDERED: Bupivacaine 0.25% SDV 30 ML ONE (13:11)
[2024-07-31] MEDS: Acetaminophen IV 1 GM/100ML 1,000 MG/100 ML BAG IV ONE (13:14)
[2024-07-31] MEDS: Buffered Lidocaine 1% SYRIN 1 ml INTRADERM ONE (13:14)
[2024-07-31] MEDS: Scopolamine 1 mg/72hr PATCH TRANSDERM ONE (13:15)
[2024-07-31] MEDS: Influenza Vaccine *TRI* 2024-25* 0.5 ML SYRINGE IM ONE (16:53)
[2024-07-31] MEDS: Lactated Ringers 1000 ml BAG 1,000 ML IV SCH (17:06)
[2024-08-01] MEDS: Vancomycin Trough Check NOTE FOLLOW UP ONE (09:28)
[2024-08-01 10:01] LABS: Calcium 8.5 mg/dL (8.6-10.3); Magnesium 1.7 mg/dL (1.9-2.7); Potassium 4.4 mmol/L (3.5-5.0); eGFR CKD-EPI 87.8 (>60)
[2024-08-01 10:06] LABS: Creatinine, Serum 0.99 mg/dL (0.67-1.17); Vancomycin Trough 14.9 mcg/mL; eGFR CKD-EPI 88.9 (>60)
[2024-08-01] MEDS: Magnesium Sulfate 2 gm BAG 2 GM/50 ML BAG IVPB ONE (12:21)
[2024-08-02 09:57] LABS: ABS Basophils 0.1 10^3/uL (0.0-0.1); ABS Eosinophils 0.5 10^3/uL (0.0-0.5); ABS Lymphocytes 1.4 10^3/uL (1.0-4.8); ABS Neutrophils 5.5 10^3/uL (1.5-7.6); ABS Nucleated RBC 0.01 10^3/ul; Eosinophil % 5.5 %; Hemoglobin 13.6 g/dL (13.2-16.3); Lymphocyte % 16.5 %; Mean Corpuscular Hgb Conc 32.3 g/dL (31-36); Mean Corpuscular Volume 86.6 fL (80-97); Mean Platelet Volume 7.4 fL (7.5-11.2); Nucleated Red Blood Cells % 0.1 %/100WBC (0.0-0.8); Platelet Count 343 10^3/uL (150-450); Red Blood Count 4.86 10^6/uL (4.06-5.63); Red Cell Distribution Width 17.5 % (12-17); White Blood Count 8.4 10^3/uL (3.6-10.2)
[2024-08-02 10:33] LABS: Albumin 2.9 g/dL (3.2-5.2); Albumin/Globulin Ratio 0.9 (1-3); Calcium 8.5 mg/dL (8.6-10.3); Creatinine, Serum 0.86 mg/dL (0.67-1.17); Digoxin 0.9 ng/ml (0.8-2.0); Globulin 3.3 g/dL (2-4); Magnesium 1.7 mg/dL (1.9-2.7); Potassium 4.6 mmol/L (3.5-5.0); Total Bilirubin 0.3 mg/dL (0.2-1.0); Total Protein 6.2 g/dL (6.4-8.9)
[2024-08-02 11:28] LABS: High Sensitivity Troponin 1 Hr 9 pg/mL (<20)
[2024-08-02 11:39] VITALS: BP 92/59
[2024-08-02] MEDS: Magnesium Sulfate 2 gm BAG 2 GM/50 ML BAG IVPB ONE (13:53)
[2024-08-02] MEDS ORDERED: Lactated Ringers 1000 ml BAG 1,000 ML IV SCH (16:00)
[2024-08-03] MEDS ORDERED: Vancomycin Trough Check NOTE FOLLOW UP ONE (08:30)
== END 2024-08-02 14:40 | disposition left against medical advice (07) | DRG 710 ==
LOC: EDHOLD 08:13 → ED 08:13 → SUATTDRO 11:41 → MEDTELE 20:04 → SUATTDRO 07-28 11:42
PROVIDERS: ADMIT Internal Medicine; ATTEND Student in an Organized Health Care Education/Training Program

== ENCOUNTER 2024-08-22 03:27 | Inpatient (IN) ==
[2024-08-22 04:03] LABS: ABS Basophils 0.1 10^3/uL (0.0-0.1); ABS Eosinophils 0.3 10^3/uL (0.0-0.5); ABS Lymphocytes 1.1 10^3/uL (1.0-4.8); ABS Monocytes 0.9 10^3/uL (0.0-1.1); ABS Neutrophils 7.5 10^3/uL (1.5-7.6); ABS Nucleated RBC 0.01 10^3/ul; Eosinophil % 2.6 %; Hematocrit 42.7 % (38-53); Lymphocyte % 10.9 %; Mean Corpuscular Hemoglobin 29.2 pg (27-33); Mean Corpuscular Hgb Conc 32.7 g/dL (31-36); Mean Corpuscular Volume 89.3 fL (80-97); Mean Platelet Volume 8.7 fL (7.5-11.2); Nucleated Red Blood Cells % 0.1 %/100WBC (0.0-0.8); Platelet Count 197 10^3/uL (150-450); Red Blood Count 4.78 10^6/uL (4.06-5.63); Red Cell Distribution Width 19.9 % (12-17); White Blood Count 9.8 10^3/uL (3.6-10.2)
[2024-08-22] MEDS: Digoxin IV 0.5 MG/2 ML AMP (0.25 MG/ML) IV SLOW PU ONE (04:33)
[2024-08-22 04:43] LABS: Calcium 8.1 mg/dL (8.6-10.3); Creatinine, Serum 1.08 mg/dL (0.67-1.17); Potassium 3.9 mmol/L (3.5-5.0)
[2024-08-22] MEDS: Meropenem 1 GM PREMIX(*) 1 GM/50 ML BAG IV ONE (08:09)
[2024-08-22] MEDS ORDERED: Mometasone/Formoter 100/5 MDI INH PRN ×2 (08:16→12:52)
[2024-08-22] MEDS ORDERED: Vancomycin per Pharmacy 1 EA NOTE FOLLOW UP SCH (09:00)
[2024-08-22] MEDS: Iodixanol 320 (CONTRAST) 100 ML SDV IV ONE (09:04)
[2024-08-22] MEDS: Vancomycin 1,500 MG in NS 0.9% 250 ml 250 ML IVPB ONE (09:06)
[2024-08-22 09:09] LABS: C Reactive Protein 61.38 mg/L (<8.01)
[2024-08-22] MEDS ORDERED: Enoxaparin 60 MG/0.6 ML SYR SUBCUT SCH (10:00)
[2024-08-22] MEDS: Sulfur Hexaflouride MICROSPHR 25 MG VIAL IV PRN (10:55)
[2024-08-22] MEDS ORDERED: Dextrose 50% Syringe 50 ml 25 GM/50 ML SYRINGE IV PUSH PRN (11:20)
[2024-08-22] MEDS ORDERED: Vancomycin 1,000 MG in NS 0.9% 250 ml 250 ML IVPB ONE (16:00)
[2024-08-22] MEDS: Vancomycin 1000 MG in NS 0.9% 250 ML IVPB SCH (20:30)
[2024-08-22] MEDS: Enoxaparin 100 MG/ML SYR SUBCUT SCH (20:30)
[2024-08-23 06:52] LABS: ABS Basophils 0.1 10^3/uL (0.0-0.1); ABS Eosinophils 0.2 10^3/uL (0.0-0.5); ABS Lymphocytes 1.2 10^3/uL (1.0-4.8); ABS Monocytes 0.7 10^3/uL (0.0-1.1); ABS Nucleated RBC 0.01 10^3/ul; Eosinophil % 2.6 %; Hematocrit 44.1 % (38-53); Hemoglobin 14.1 g/dL (13.2-16.3); Lymphocyte % 15.1 %; Mean Corpuscular Hemoglobin 29.4 pg (27-33); Mean Corpuscular Volume 91.8 fL (80-97); Mean Platelet Volume 9.2 fL (7.5-11.2); Nucleated Red Blood Cells % 0.1 %/100WBC (0.0-0.8); Platelet Count 204 10^3/uL (150-450); Red Blood Count 4.81 10^6/uL (4.06-5.63); Red Cell Distribution Width 20.3 % (12-17); White Blood Count 8.3 10^3/uL (3.6-10.2)
[2024-08-23 08:03] LABS: Calcium 8.1 mg/dL (8.6-10.3); Creatinine, Serum 0.92 mg/dL (0.67-1.17); Magnesium 1.9 mg/dL (1.9-2.7)
[2024-08-23] MEDS ORDERED: Midazolam 5 mg/5 ml VIAL 1 mg/ml 5 ml VIAL (5 mg) ONE (08:20)
[2024-08-23] MEDS ORDERED: Flumazenil 0.5 mg/5 ml 0.1 MG/ML 5 ml VIAL ONE (08:20)
[2024-08-23] MEDS ORDERED: Naloxone 0.4 mg VIAL 0.4 mg/ml 1 ml VIAL ONE (08:20)
[2024-08-23] MEDS ORDERED: fentaNYL 100 mcg/2 ml 50 MCG/ML VIAL ONE (08:20)
[2024-08-23] MEDS ORDERED: Flumazenil 0.5 mg/5 ml 0.1 MG/ML 5 ml VIAL IV PRN (09:16)
[2024-08-23] MEDS ORDERED: Naloxone 0.4 mg VIAL 0.4 mg/ml 1 ml VIAL IV PUSH PRN (09:16)
[2024-08-23] MEDS: Midazolam 10 mg/10 ml VIAL 1 mg/ml 10 ml VIAL (10 mg) IV SLOW PU ONE (11:57)
[2024-08-23] MEDS: fentaNYL 100 mcg/2 ml 50 MCG/ML VIAL IV SLOW PU ONE (11:57)
[2024-08-23] MEDS: Albuterol HFA INHALER 8 gm MDI INH PRN (23:51)
[2024-08-24 08:08] LABS: Calcium 8.1 mg/dL (8.6-10.3); Creatinine, Serum 1.26 mg/dL (0.67-1.17); Magnesium 1.9 mg/dL (1.9-2.7); Potassium 4.5 mmol/L (3.5-5.0); eGFR CKD-EPI 66.5 (>60)
[2024-08-24 08:14] LABS: Hematocrit 44.3 % (38-53); Hemoglobin 14.1 g/dL (13.2-16.3); Mean Corpuscular Hemoglobin 29.3 pg (27-33); Mean Corpuscular Hgb Conc 31.7 g/dL (31-36); Mean Corpuscular Volume 92.3 fL (80-97); Mean Platelet Volume 8.8 fL (7.5-11.2); Platelet Count 184 10^3/uL (150-450); White Blood Count 8.2 10^3/uL (3.6-10.2)
[2024-08-24] MEDS: Vancomycin Trough Check NOTE FOLLOW UP ONE (10:14)
[2024-08-24] MEDS: Vancomycin 750 MG in NS 0.9% 250 ML IVPB SCH (23:04)
[2024-08-25 06:09] LABS: ABS Basophils 0.1 10^3/uL (0.0-0.1); ABS Eosinophils 0.2 10^3/uL (0.0-0.5); ABS Lymphocytes 1.4 10^3/uL (1.0-4.8); ABS Monocytes 0.9 10^3/uL (0.0-1.1); ABS Neutrophils 6.6 10^3/uL (1.5-7.6); ABS Nucleated RBC 0.02 10^3/ul; Eosinophil % 2.3 %; Hematocrit 46.2 % (38-53); Hemoglobin 14.7 g/dL (13.2-16.3); Mean Corpuscular Hemoglobin 29.1 pg (27-33); Mean Corpuscular Hgb Conc 31.7 g/dL (31-36); Mean Corpuscular Volume 91.7 fL (80-97); Mean Platelet Volume 8.8 fL (7.5-11.2); Nucleated Red Blood Cells % 0.2 %/100WBC (0.0-0.8); Platelet Count 177 10^3/uL (150-450); Red Blood Count 5.04 10^6/uL (4.06-5.63); Red Cell Distribution Width 19.5 % (12-17); White Blood Count 9.2 10^3/uL (3.6-10.2)
[2024-08-25 07:05] LABS: ALT 81 U/L (7-52); Albumin/Globulin Ratio 0.9 (1-3); Alkaline Phosphatase 126 U/L (35-149); Anion Gap 10 mmol/L (2-16); Blood Urea Nitrogen 26 mg/dL (6-24); CO2 Carbon Dioxide 18 mmol/L (22-32); Calcium 8.4 mg/dL (8.6-10.3); Chloride 107 mmol/L (101-111); Creatinine, Serum 1.01 mg/dL (0.67-1.17); Globulin 3.3 g/dL (2-4); Glucose 99 mg/dL (70-100); Magnesium 1.8 mg/dL (1.9-2.7); Sodium 135 mmol/L (135-145); Total Bilirubin 1.3 mg/dL (0.2-1.0); Total Protein 6.3 g/dL (6.4-8.9); eGFR CKD-EPI 86.7 (>60)
[2024-08-25] MEDS ORDERED: Lorazepam PYXIS KEY PRN (08:54)
[2024-08-25 09:05] LABS: Potassium Redraw 5.3 mmol/L (3.5-5.0)
[2024-08-25] MEDS: Magnesium Sulfate 2 gm BAG 2 GM/50 ML BAG IVPB ONE (09:43)
[2024-08-25] MEDS: LORazepam 2 mg VIAL 1 ml IV PUSH ONE (13:12)
[2024-08-25] MEDS: Morphine 2 MG/ML SYRINGE IV ONE (13:13)
[2024-08-26 07:10] LABS: ABS Basophils 0.1 10^3/uL (0.0-0.1); ABS Eosinophils 0.3 10^3/uL (0.0-0.5); ABS Lymphocytes 1.6 10^3/uL (1.0-4.8); ABS Monocytes 1.1 10^3/uL (0.0-1.1); ABS Neutrophils 7.5 10^3/uL (1.5-7.6); ABS Nucleated RBC 0.01 10^3/ul; Eosinophil % 2.5 %; Hematocrit 47.9 % (38-53); Hemoglobin 15.1 g/dL (13.2-16.3); Lymphocyte % 15.6 %; Mean Corpuscular Hemoglobin 29.5 pg (27-33); Mean Corpuscular Hgb Conc 31.4 g/dL (31-36); Mean Corpuscular Volume 93.7 fL (80-97); Mean Platelet Volume 8.6 fL (7.5-11.2); Nucleated Red Blood Cells % 0.1 %/100WBC (0.0-0.8); Platelet Count 156 10^3/uL (150-450); Red Blood Count 5.11 10^6/uL (4.06-5.63); Red Cell Distribution Width 19.8 % (12-17); White Blood Count 10.5 10^3/uL (3.6-10.2)
[2024-08-26 07:30] LABS: Creatinine, Serum 1.03 mg/dL (0.67-1.17); Vancomycin Trough 20.5 mcg/mL; eGFR CKD-EPI 84.7 (>60)
[2024-08-26 07:31] LABS: Albumin 3.1 g/dL (3.2-5.2); Albumin/Globulin Ratio 0.9 (1-3); Calcium 8.1 mg/dL (8.6-10.3); Creatinine, Serum 1.01 mg/dL (0.67-1.17); Globulin 3.3 g/dL (2-4); Magnesium 1.9 mg/dL (1.9-2.7); Total Bilirubin 1.4 mg/dL (0.2-1.0); Total Protein 6.4 g/dL (6.4-8.9); eGFR CKD-EPI 86.7 (>60)
[2024-08-26] MEDS: Vancomycin Trough Check NOTE FOLLOW UP ONE (07:32)
[2024-08-26] MEDS ORDERED: Vancomycin Trough Check NOTE FOLLOW UP ONE (09:30)
[2024-08-26] MEDS: Morphine 2 MG/ML SYRINGE IV PRN (10:37)
[2024-08-27 06:27] LABS: Hematocrit 42.8 % (38-53); Hemoglobin 14.1 g/dL (13.2-16.3); Mean Corpuscular Hemoglobin 29.8 pg (27-33); Mean Corpuscular Hgb Conc 32.8 g/dL (31-36); Mean Corpuscular Volume 90.7 fL (80-97); Platelet Count 183 10^3/uL (150-450); Red Blood Count 4.72 10^6/uL (4.06-5.63); Red Cell Distribution Width 19.6 % (12-17); White Blood Count 10.3 10^3/uL (3.6-10.2)
[2024-08-27 06:52] LABS: Calcium 8.1 mg/dL (8.6-10.3); Creatinine, Serum 1.02 mg/dL (0.67-1.17); Magnesium 1.7 mg/dL (1.9-2.7); Potassium 4.9 mmol/L (3.5-5.0); eGFR CKD-EPI 85.7 (>60)
[2024-08-27] MEDS: Magnesium Sulfate 2 gm BAG 2 GM/50 ML BAG IVPB ONE (09:18)
[2024-08-27] MEDS ORDERED: Naloxone Nasal Spray 4 MG/0.1 ML NASAL.SPR INTRANASAL PRN (09:34)
[2024-08-27] MEDS: Lidocaine PATCH 5% PATCH TRANSDERM SCH (11:59)
[2024-08-27] MEDS: oxyCODONE SR 15 mg TAB PO SCH (12:20)
[2024-08-27] MEDS: Furosemide 20 mg/2 ml IV VIAL IV ONE (17:04)
[2024-08-28 08:09] LABS: ABS Basophils 0.1 10^3/uL (0.0-0.1); ABS Eosinophils 0.3 10^3/uL (0.0-0.5); ABS Lymphocytes 1.3 10^3/uL (1.0-4.8); ABS Monocytes 1.1 10^3/uL (0.0-1.1); ABS Neutrophils 7.3 10^3/uL (1.5-7.6); Eosinophil % 2.5 %; Hematocrit 40.2 % (38-53); Hemoglobin 12.9 g/dL (13.2-16.3); Mean Corpuscular Hemoglobin 29.2 pg (27-33); Mean Corpuscular Hgb Conc 32.2 g/dL (31-36); Mean Corpuscular Volume 90.9 fL (80-97); Mean Platelet Volume 8.4 fL (7.5-11.2); Platelet Count 188 10^3/uL (150-450); Red Blood Count 4.42 10^6/uL (4.06-5.63); Red Cell Distribution Width 19.2 % (12-17); White Blood Count 10.1 10^3/uL (3.6-10.2)
[2024-08-28 08:43] LABS: Calcium 7.7 mg/dL (8.6-10.3); Creatinine, Serum 1.04 mg/dL (0.67-1.17); Magnesium 1.8 mg/dL (1.9-2.7); Potassium 4.6 mmol/L (3.5-5.0); eGFR CKD-EPI 83.7 (>60)
[2024-08-28] MEDS: Magnesium Sulfate 2 gm BAG 2 GM/50 ML BAG IVPB ONE (11:36)
[2024-08-28] MEDS ORDERED: Lorazepam PYXIS KEY PRN (11:42)
[2024-08-28] MEDS: HYDROmorphone 0.5 MG/0.5 ML SYRINGE IV SLOW PU PRN (11:53)
[2024-08-28] MEDS: LORazepam 2 mg VIAL 1 ml IV PUSH ONE (20:36)
[2024-08-29] MEDS: Morphine 2 MG/ML SYRINGE IV ONE ×2 (01:21→14:42)
[2024-08-29 07:09] LABS: Hematocrit 41.6 % (38-53); Hemoglobin 13.6 g/dL (13.2-16.3); Mean Corpuscular Hgb Conc 32.6 g/dL (31-36); Mean Corpuscular Volume 91.9 fL (80-97); Mean Platelet Volume 8.6 fL (7.5-11.2); Platelet Count 206 10^3/uL (150-450); Red Blood Count 4.52 10^6/uL (4.06-5.63); Red Cell Distribution Width 19.6 % (12-17); White Blood Count 8.9 10^3/uL (3.6-10.2)
[2024-08-29 07:25] LABS: Creatinine, Serum 0.89 mg/dL (0.67-1.17); Magnesium 1.8 mg/dL (1.9-2.7); Potassium 4.8 mmol/L (3.5-5.0)
[2024-08-29 10:03] LABS: Creatinine, Serum 0.84 mg/dL (0.67-1.17); Vancomycin Trough 18.8 mcg/mL; eGFR CKD-EPI 101.7 (>60)
[2024-08-29] MEDS: Furosemide 20 mg/2 ml IV VIAL IV ONE (10:03)
[2024-08-29] MEDS: HYDROmorphone 0.5 MG/0.5 ML SYRINGE IV SLOW PU PRN (10:04)
[2024-08-29] MEDS: Vancomycin Trough Check NOTE FOLLOW UP ONE (10:05)
[2024-08-29] MEDS ORDERED: Lorazepam PYXIS KEY PRN (10:42)
[2024-08-29] MEDS: LORazepam 2 mg VIAL 1 ml IV PUSH ONE ×2 (13:15→14:42)
[2024-08-29] MEDS: Gadoteridol (CONTRAST) 279.3 MG/ML 10 ML IV ONE (15:04)
[2024-08-29] MEDS ORDERED: Gadoteridol (CONTRAST) 279.3 MG/ML 10 ML IV SCH (16:00)
[2024-08-30] MEDS: Magnesium Sulfate 2 gm BAG 2 GM/50 ML BAG IVPB ONE (10:57)
[2024-08-30] MEDS: HYDROmorphone 1 MG/1 ML SYRINGE IV SLOW PU PRN (12:52)
[2024-08-31 06:21] LABS: Hematocrit 39.2 % (38-53); Hemoglobin 12.4 g/dL (13.2-16.3); Mean Corpuscular Hemoglobin 28.8 pg (27-33); Mean Corpuscular Hgb Conc 31.8 g/dL (31-36); Mean Corpuscular Volume 90.8 fL (80-97); Mean Platelet Volume 8.4 fL (7.5-11.2); Platelet Count 217 10^3/uL (150-450); Red Blood Count 4.31 10^6/uL (4.06-5.63); Red Cell Distribution Width 18.4 % (12-17); White Blood Count 7.5 10^3/uL (3.6-10.2)
[2024-08-31 06:34] LABS: Calcium 7.9 mg/dL (8.6-10.3); Creatinine, Serum 0.83 mg/dL (0.67-1.17); Potassium 4.8 mmol/L (3.5-5.0); eGFR CKD-EPI 102.1 (>60)
[2024-09-01] MEDS: Bismuth Subsalicylate (BTL) 525 MG/30 ML (BULK BTL) PO PRN (04:40)
[2024-09-01 10:15] LABS: Hematocrit 44.8 % (38-53); Hemoglobin 14.3 g/dL (13.2-16.3); Mean Corpuscular Hemoglobin 29.8 pg (27-33); Mean Corpuscular Hgb Conc 31.9 g/dL (31-36); Mean Corpuscular Volume 93.6 fL (80-97); Mean Platelet Volume 8.5 fL (7.5-11.2); Platelet Count 201 10^3/uL (150-450); Red Blood Count 4.78 10^6/uL (4.06-5.63); Red Cell Distribution Width 18.9 % (12-17); White Blood Count 8.2 10^3/uL (3.6-10.2)
[2024-09-01 11:02] LABS: Anion Gap 7 mmol/L (2-16); Blood Urea Nitrogen 24 mg/dL (6-24); CO2 Carbon Dioxide 21 mmol/L (22-32); Calcium 8.1 mg/dL (8.6-10.3); Chloride 105 mmol/L (101-111); Creatinine, Serum 0.79 mg/dL (0.67-1.17); Glucose 135 mg/dL (70-100); Magnesium 1.7 mg/dL (1.9-2.7); Sodium 133 mmol/L (135-145); eGFR CKD-EPI 103.6 (>60)
[2024-09-01] MEDS: Vancomycin Trough Check NOTE FOLLOW UP ONE (11:58)
[2024-09-01 12:04] LABS: Potassium, Whole Blood 5.5 mmol/L (3.4-4.5)
[2024-09-01] MEDS: Furosemide 40 mg/4 ml IV VIAL IV SLOW PU ONE (15:15)
[2024-09-01] MEDS: Vancomycin 750 MG in NS 0.9% 250 ML IVPB SCH (15:36)
[2024-09-01] MEDS: Magnesium Sulfate 2 gm BAG 2 GM/50 ML BAG IVPB ONE (17:26)
[2024-09-01] MEDS: Magnesium Sulfate IV 1GM/100ML 1 GM/100 ML BAG IV ONE (18:28)
[2024-09-02 08:44] LABS: ABS Basophils 0.1 10^3/uL (0.0-0.1); ABS Eosinophils 0.2 10^3/uL (0.0-0.5); ABS Lymphocytes 1.9 10^3/uL (1.0-4.8); ABS Monocytes 0.7 10^3/uL (0.0-1.1); ABS Neutrophils 7.9 10^3/uL (1.5-7.6); Eosinophil % 1.8 %; Hemoglobin 13.8 g/dL (13.2-16.3); Lymphocyte % 17.3 %; Mean Corpuscular Hemoglobin 29.8 pg (27-33); Mean Corpuscular Volume 90.5 fL (80-97); Mean Platelet Volume 8.2 fL (7.5-11.2); Platelet Count 274 10^3/uL (150-450); Red Blood Count 4.64 10^6/uL (4.06-5.63); Red Cell Distribution Width 18.2 % (12-17); White Blood Count 10.9 10^3/uL (3.6-10.2)
[2024-09-02 09:14] LABS: Creatinine, Serum 1.06 mg/dL (0.67-1.17); Magnesium 2.1 mg/dL (1.9-2.7); Potassium 4.9 mmol/L (3.5-5.0); eGFR CKD-EPI 81.9 (>60)
[2024-09-02] MEDS: Magnesium Sulfate 2 gm BAG 2 GM/50 ML BAG IVPB ONE (10:19)
[2024-09-02] MEDS: Magnesium Sulfate IV 1GM/100ML 1 GM/100 ML BAG IV ONE (12:27)
[2024-09-03 06:32] LABS: Hematocrit 42.9 % (38-53); Hemoglobin 14.3 g/dL (13.2-16.3); Mean Corpuscular Hemoglobin 30.3 pg (27-33); Mean Corpuscular Hgb Conc 33.3 g/dL (31-36); Mean Corpuscular Volume 91.3 fL (80-97); Mean Platelet Volume 8.1 fL (7.5-11.2); Platelet Count 268 10^3/uL (150-450); Red Cell Distribution Width 18.5 % (12-17)
[2024-09-03 06:43] LABS: Calcium 8.3 mg/dL (8.6-10.3); Magnesium 1.9 mg/dL (1.9-2.7); Potassium 5.4 mmol/L (3.5-5.0); eGFR CKD-EPI 87.8 (>60)
[2024-09-03 15:14] LABS: Creatinine, Serum 0.99 mg/dL (0.67-1.17); eGFR CKD-EPI 88.9 (>60)
[2024-09-03] MEDS: Vancomycin Trough Check NOTE FOLLOW UP ONE (15:33)
[2024-09-03 17:26] LABS: C Reactive Protein 41.65 mg/L (<8.01)
[2024-09-03 17:38] LABS: Albumin/Globulin Ratio 0.9 (1-3); Direct Bilirubin 0.4 mg/dL (0.03-0.18); Globulin 3.3 g/dL (2-4); Indirect Bilirubin 0.7 mg/dL (0.3-1.0); Total Bilirubin 1.1 mg/dL (0.2-1.0); Total Protein 6.3 g/dL (6.4-8.9)
[2024-09-04 07:10] LABS: Calcium 7.8 mg/dL (8.6-10.3); Creatinine, Serum 0.99 mg/dL (0.67-1.17); Magnesium 1.9 mg/dL (1.9-2.7); Phosphorus 4.1 mg/dL (2.5-5.0); Potassium 4.7 mmol/L (3.5-5.0); eGFR CKD-EPI 88.9 (>60)
[2024-09-04 07:37] LABS: ABS Eosinophils 0.3 10^3/uL (0.0-0.5); ABS Lymphocytes 1.7 10^3/uL (1.0-4.8); ABS Monocytes 0.8 10^3/uL (0.0-1.1); ABS Neutrophils 3.8 10^3/uL (1.5-7.6); Eosinophil % 4.8 %; Hematocrit 38.1 % (38-53); Hemoglobin 12.5 g/dL (13.2-16.3); Lymphocyte % 26.3 %; Mean Corpuscular Hemoglobin 29.5 pg (27-33); Mean Corpuscular Hgb Conc 32.7 g/dL (31-36); Mean Corpuscular Volume 90.2 fL (80-97); Mean Platelet Volume 8.1 fL (7.5-11.2); Platelet Count 251 10^3/uL (150-450); Red Blood Count 4.23 10^6/uL (4.06-5.63); White Blood Count 6.6 10^3/uL (3.6-10.2)
[2024-09-04] MEDS: HYDROmorphone 1 MG/1 ML SYRINGE IV SLOW PU PRN (16:15)
[2024-09-04 16:24] LABS: Vancomycin Trough 21.9 mcg/mL; eGFR CKD-EPI 87.8 (>60)
[2024-09-04] MEDS: Vancomycin Trough Check NOTE FOLLOW UP ONE (16:42)
[2024-09-04] MEDS: Albuterol/Ipratropium NEB.SOL (2.5/0.5 MG) 3 ML NEB.SOLN INH ONE (23:20)
[2024-09-05] MEDS: HYDROmorphone 1 MG/1 ML SYRINGE IV SLOW PU ONE (01:21)
[2024-09-05 06:00] LABS: ABS Basophils 0.1 10^3/uL (0.0-0.1); ABS Eosinophils 0.1 10^3/uL (0.0-0.5); ABS Lymphocytes 1.5 10^3/uL (1.0-4.8); ABS Monocytes 0.9 10^3/uL (0.0-1.1); ABS Neutrophils 5.1 10^3/uL (1.5-7.6); ABS Nucleated RBC 0.01 10^3/ul; Eosinophil % 1.4 %; Hematocrit 41.8 % (38-53); Hemoglobin 13.7 g/dL (13.2-16.3); Lymphocyte % 19.8 %; Mean Corpuscular Hemoglobin 29.8 pg (27-33); Mean Corpuscular Hgb Conc 32.8 g/dL (31-36); Mean Corpuscular Volume 90.9 fL (80-97); Mean Platelet Volume 8.1 fL (7.5-11.2); Nucleated Red Blood Cells % 0.1 %/100WBC (0.0-0.8); Platelet Count 280 10^3/uL (150-450); Red Blood Count 4.59 10^6/uL (4.06-5.63); Red Cell Distribution Width 18.3 % (12-17); White Blood Count 7.7 10^3/uL (3.6-10.2)
[2024-09-05 06:52] LABS: Calcium 8.3 mg/dL (8.6-10.3); Creatinine, Serum 0.95 mg/dL (0.67-1.17); Magnesium 1.9 mg/dL (1.9-2.7); Potassium 5.1 mmol/L (3.5-5.0); eGFR CKD-EPI 93.4 (>60)
[2024-09-05] MEDS: Vancomycin Random Level NOTE FOLLOW UP ONE (08:04)
[2024-09-05 13:38] VITALS: BP 108/81
[2024-09-05] MEDS: Vancomycin 500 MG in NS 0.9% 250 ml 250 ML IVPB ONE (15:34)
[2024-09-06] MEDS ORDERED: Vancomycin Random Level NOTE FOLLOW UP ONE (12:00)
== END 2024-09-05 05:23 | disposition swing bed (61) | DRG 720 ==
LOC: ED 03:27 → SUATTDRO 08:08 → EDHOLD 08:08 → MEDTELE 11:59
PROVIDERS: ADMIT Student in an Organized Health Care Education/Training Program; ATTEND Student in an Organized Health Care Education/Training Program

== ENCOUNTER 2024-09-05 17:25 | Inpatient (IN) ==
[2024-09-05] MEDS ORDERED: Dextrose 50% Syringe 50 ml 25 GM/50 ML SYRINGE IV PUSH PRN (18:03)
[2024-09-05] MEDS ORDERED: Vancomycin per Pharmacy 1 EA NOTE FOLLOW UP SCH (19:00)
[2024-09-05] MEDS ORDERED: HYDROmorphone 1 MG/1 ML SYRINGE IV SCH (19:00)
[2024-09-05] MEDS: HYDROmorphone 1 MG/1 ML SYRINGE IV PRN (20:12)
[2024-09-06] MEDS: Albuterol HFA INHALER 8 gm MDI INH PRN (03:24)
[2024-09-06] MEDS: Vancomycin Random Level NOTE FOLLOW UP ONE (13:14)
[2024-09-06] MEDS: Vancomycin 500 MG in NS 0.9% 250 ML IVPB SCH (18:16)
[2024-09-07] MEDS: Furosemide 40 mg/4 ml IV VIAL IV SLOW PU ONE (12:41)
[2024-09-08 06:39] LABS: Creatinine, Serum 1.09 mg/dL (0.67-1.17); Vancomycin Trough 19.3 mcg/mL; eGFR CKD-EPI 79.2 (>60)
[2024-09-08] MEDS: Vancomycin Trough Check NOTE FOLLOW UP ONE (07:59)
[2024-09-09] MEDS ORDERED: Vancomycin 750 MG in NS 0.9% 250 ML IVPB SCH (06:30)
[2024-09-09 06:34] LABS: ABS Basophils 0.1 10^3/uL (0.0-0.1); ABS Eosinophils 0.1 10^3/uL (0.0-0.5); ABS Lymphocytes 1.2 10^3/uL (1.0-4.8); ABS Monocytes 0.8 10^3/uL (0.0-1.1); ABS Neutrophils 5.8 10^3/uL (1.5-7.6); ABS Nucleated RBC 0.01 10^3/ul; Eosinophil % 1.8 %; Hematocrit 41.9 % (38-53); Hemoglobin 13.5 g/dL (13.2-16.3); Lymphocyte % 15.1 %; Mean Corpuscular Hemoglobin 29.1 pg (27-33); Mean Corpuscular Hgb Conc 32.3 g/dL (31-36); Mean Corpuscular Volume 90.3 fL (80-97); Mean Platelet Volume 8.6 fL (7.5-11.2); Nucleated Red Blood Cells % 0.1 %/100WBC (0.0-0.8); Platelet Count 264 10^3/uL (150-450); Red Blood Count 4.64 10^6/uL (4.06-5.63); Red Cell Distribution Width 18.3 % (12-17); White Blood Count 8.1 10^3/uL (3.6-10.2)
[2024-09-09 07:10] LABS: Albumin 3.2 g/dL (3.2-5.2); Albumin/Globulin Ratio 0.9 (1-3); C Reactive Protein 24.12 mg/L (<8.01); Calcium 8.5 mg/dL (8.6-10.3); Creatinine, Serum 1.17 mg/dL (0.67-1.17); Globulin 3.5 g/dL (2-4); Total Bilirubin 1.4 mg/dL (0.2-1.0); Total Protein 6.7 g/dL (6.4-8.9); Vancomycin Trough 21.9 mcg/mL; eGFR CKD-EPI 72.7 (>60)
[2024-09-09] MEDS: Vancomycin Random Level NOTE FOLLOW UP ONE ×2 (07:53→18:32)
[2024-09-09] MEDS: Vancomycin 750 MG in NS 0.9% 250 ML IVPB SCH (18:38)
[2024-09-11] MEDS ORDERED: Vancomycin Trough Check NOTE FOLLOW UP ONE (06:00)
[2024-09-13] MEDS: Vancomycin Trough Check NOTE FOLLOW UP ONE (18:01)
[2024-09-13 20:06] LABS: PCO2 Arterial 45 mmHg (35-45); PO2 Arterial 78 mmHg (80-100)
[2024-09-13] MEDS: Vancomycin 500 MG in NS 0.9% 250 ML IVPB SCH (23:06)
[2024-09-15] MEDS: Dextrose 50% Syringe 50 ml 25 GM/50 ML SYRINGE IV PUSH PRN (16:50)
[2024-09-16 05:59] LABS: ABS Eosinophils 0.1 10^3/uL (0.0-0.5); ABS Lymphocytes 1.1 10^3/uL (1.0-4.8); ABS Monocytes 0.8 10^3/uL (0.0-1.1); ABS Neutrophils 3.2 10^3/uL (1.5-7.6); Eosinophil % 1.8 %; Hematocrit 38.9 % (38-53); Hemoglobin 12.9 g/dL (13.2-16.3); Lymphocyte % 21.1 %; Mean Corpuscular Hemoglobin 29.4 pg (27-33); Mean Corpuscular Hgb Conc 33.3 g/dL (31-36); Mean Corpuscular Volume 88.3 fL (80-97); Mean Platelet Volume 8.3 fL (7.5-11.2); Nucleated Red Blood Cells % 0.1 %/100WBC (0.0-0.8); Platelet Count 187 10^3/uL (150-450); Red Blood Count 4.41 10^6/uL (4.06-5.63); Red Cell Distribution Width 17.6 % (12-17); White Blood Count 5.2 10^3/uL (3.6-10.2)
[2024-09-16 06:44] LABS: Albumin 2.6 g/dL (3.2-5.2); Albumin/Globulin Ratio 0.8 (1-3); C Reactive Protein 33.56 mg/L (<8.01); Creatinine, Serum 1.13 mg/dL (0.67-1.17); Digoxin 0.8 ng/ml (0.8-2.0); Globulin 3.3 g/dL (2-4); Potassium 4.1 mmol/L (3.5-5.0); Total Bilirubin 1.3 mg/dL (0.2-1.0); Total Protein 5.9 g/dL (6.4-8.9); Vancomycin Trough 22.3 mcg/mL; eGFR CKD-EPI 75.8 (>60)
[2024-09-16] MEDS: Vancomycin Trough Check NOTE FOLLOW UP ONE (22:00)
[2024-09-16] MEDS ORDERED: Vancomycin 500 MG in NS 0.9% 250 ML IVPB SCH (23:00)
[2024-09-17] MEDS: Vancomycin 500 MG in NS 0.9% 250 ML IVPB SCH (06:25)
[2024-09-17 08:00] VITALS: BP 111/92
[2024-09-17] MEDS ORDERED: Iodixanol 320 (CONTRAST) 100 ML SDV IV ONE (08:38)
[2024-09-17] MEDS ORDERED: Albuterol/Ipratropium NEB.SOL (2.5/0.5 MG) 3 ML NEB.SOLN INH PRN (08:59)
[2024-09-17 09:03] LABS: ABS Basophils 0.1 10^3/uL (0.0-0.1); ABS Eosinophils 0.1 10^3/uL (0.0-0.5); ABS Lymphocytes 1.2 10^3/uL (1.0-4.8); ABS Monocytes 1.1 10^3/uL (0.0-1.1); ABS Neutrophils 6.9 10^3/uL (1.5-7.6); Eosinophil % 1.1 %; Hematocrit 42.2 % (38-53); Hemoglobin 13.8 g/dL (13.2-16.3); Lymphocyte % 12.6 %; Mean Corpuscular Hemoglobin 29.3 pg (27-33); Mean Corpuscular Hgb Conc 32.6 g/dL (31-36); Mean Corpuscular Volume 89.8 fL (80-97); Mean Platelet Volume 8.4 fL (7.5-11.2); Platelet Count 216 10^3/uL (150-450); Red Cell Distribution Width 17.7 % (12-17); White Blood Count 9.4 10^3/uL (3.6-10.2)
[2024-09-17] MEDS ORDERED: Albuterol/Ipratropium NEB.SOL (2.5/0.5 MG) 3 ML NEB.SOLN ONE (09:57)
[2024-09-17 10:27] LABS: Albumin 3.2 g/dL (3.2-5.2); Albumin/Globulin Ratio 0.8 (1-3); C Reactive Protein 34.81 mg/L (<8.01); Calcium 8.5 mg/dL (8.6-10.3); Creatinine, Serum 1.33 mg/dL (0.67-1.17); Globulin 3.8 g/dL (2-4); Potassium 5.1 mmol/L (3.5-5.0); Total Bilirubin 1.2 mg/dL (0.2-1.0); eGFR CKD-EPI 62.3 (>60)
[2024-09-18] MEDS ORDERED: Vancomycin Random Level NOTE FOLLOW UP ONE (05:30)
== END 2024-09-17 09:42 | disposition short-term general hospital (02) | DRG 720 ==
LOC: CHICARD 17:25 → SUATTDRO 17:34 → MEDTELE 17:34
PROVIDERS: ADMIT Nurse Practitioner Family; ATTEND Internal Medicine

== ENCOUNTER 2024-09-17 09:51 | Observation (INO) ==
[2024-09-17] MEDS: Albuterol/Ipratropium NEB.SOL (2.5/0.5 MG) 3 ML NEB.SOLN INH PRN (10:03)
[2024-09-17] MEDS ORDERED: Dextrose 50% Syringe 50 ml 25 GM/50 ML SYRINGE IV PUSH PRN (10:17)
[2024-09-17] MEDS ORDERED: NON FORMULARY MED (Vancomycin Per Pharmacy 1 NOTE) FOLLOW UP SCH (10:30)
[2024-09-17] MEDS: NS 0.9% 1000 ml BAG 1,000 ML IV SCH (10:30)
[2024-09-17] MEDS ORDERED: Vancomycin per Pharmacy 1 EA NOTE FOLLOW UP PRN (10:56)
[2024-09-17] MEDS: HYDROmorphone 1 MG/1 ML SYRINGE IV SLOW PU PRN (12:11)
[2024-09-17] MEDS ORDERED: Sulfur Hexaflouride MICROSPHR 25 MG VIAL ONE (14:12)
[2024-09-17] MEDS: Sulfur Hexaflouride MICROSPHR 25 MG VIAL IV PRN (16:46)
[2024-09-18 12:36] LABS: Calcium 7.7 mg/dL (8.6-10.3); Creatinine, Serum 1.04 mg/dL (0.67-1.17); Potassium 4.2 mmol/L (3.5-5.0); Vancomycin Trough 15.9 mcg/mL; eGFR CKD-EPI 83.7 (>60)
[2024-09-18] MEDS: Vancomycin 500 MG in NS 0.9% 250 ML IVPB SCH ×2 (15:59→16:02)
[2024-09-18] MEDS: Vancomycin Trough Check NOTE FOLLOW UP ONE (15:59)
[2024-09-19 07:44] LABS: Urine Appearance Clear; Urine Bilirubin Negative (Negative); Urine Blood Negative (Negative); Urine Color Yellow; Urine Glucose 4+ (>=1000 mg/dL) (Negative); Urine Ketones Negative (Negative); Urine Nitrite Negative (Negative); Urine Protein Trace (Negative); Urine Specific Gravity 1.021 (1.002-1.030); Urine pH 6.5 (5.0-8.0)
[2024-09-20] MEDS: Albuterol HFA INHALER 8 gm MDI INH PRN (02:16)
[2024-09-20 05:33] LABS: High Sensitivity Troponin 1 Hr 29 pg/mL (<20)
[2024-09-20] MEDS ORDERED: Propofol 0 MG/0 ML BTL ONE (09:11)
[2024-09-20] MEDS ORDERED: Propofol 10 MG/ML 20 ML BTL ONE (09:11)
[2024-09-20] MEDS ORDERED: Etomidate 20 mg/10 ml 2 MG/ML 10 ml VIAL ONE (09:11)
[2024-09-20] MEDS ORDERED: Esmolol 10 MG/ML 10 ML (100 mg) IV ONE (09:11)
[2024-09-20] MEDS ORDERED: Rocuronium 50 mg VIAL 10 mg/ml 5 ml VIAL (50 mg) ONE (09:11)
[2024-09-20] MEDS ORDERED: Lidocaine 2% PF 5 ML VIAL ONE (09:11)
[2024-09-20] MEDS ORDERED: Norepinephrine IV 1 MG/ML 4 ML VIAL ONE (09:11)
[2024-09-20] MEDS ORDERED: Phenylephrine IV 10 MG/ML 1 ml VIAL ONE (09:20)
[2024-09-20] MEDS: Nicotine PATCH 14 MG/24 HR PATCH TRANSDERM SCH (13:19)
[2024-09-21 08:03] LABS: Hematocrit 40.4 % (38-53); Hemoglobin 13.2 g/dL (13.2-16.3); Mean Corpuscular Hgb Conc 32.6 g/dL (31-36); Mean Platelet Volume 8.6 fL (7.5-11.2); Platelet Count 207 10^3/uL (150-450); Red Blood Count 4.54 10^6/uL (4.06-5.63); Red Cell Distribution Width 17.9 % (12-17); White Blood Count 8.1 10^3/uL (3.6-10.2)
[2024-09-21 08:19] LABS: Albumin 2.8 g/dL (3.5-5.7); Albumin/Globulin Ratio 0.8 (1-3); Calcium 8.3 mg/dL (8.6-10.3); Creatinine, Serum 0.96 mg/dL (0.67-1.17); Globulin 3.3 g/dL (2-4); Potassium 4.5 mmol/L (3.5-5.0); Total Bilirubin 2.2 mg/dL (0.2-1.0); Total Protein 6.1 g/dL (6.4-8.9); eGFR CKD-EPI 92.2 (>60)
[2024-09-21] MEDS: Vancomycin Trough Check NOTE FOLLOW UP ONE (12:28)
[2024-09-21 14:09] LABS: Vancomycin Trough 20.3 mcg/mL; eGFR CKD-EPI 87.8 (>60)
[2024-09-22 04:35] LABS: PCO2 Arterial <20 mmHg (35-45); PO2 Arterial 125 mmHg (80-100)
[2024-09-22 05:47] LABS: High Sensitivity Troponin 1 Hr 16 pg/mL (<20)
[2024-09-22 06:14] LABS: Creatinine, Serum 1.18 mg/dL (0.67-1.17); Vancomycin Random 20.4 mcg/mL
[2024-09-22] MEDS: Vancomycin Random Level NOTE FOLLOW UP ONE (11:58)
[2024-09-23 05:22] VITALS: BP 110/90
[2024-09-23 05:56] LABS: ABS Basophils 0.1 10^3/uL (0.0-0.1); ABS Eosinophils 0.3 10^3/uL (0.0-0.5); ABS Lymphocytes 2.3 10^3/uL (1.0-4.8); ABS Monocytes 0.9 10^3/uL (0.0-1.1); Eosinophil % 3.1 %; Hematocrit 41.2 % (38-53); Hemoglobin 13.7 g/dL (13.2-16.3); Lymphocyte % 24.1 %; Mean Corpuscular Hemoglobin 29.2 pg (27-33); Mean Corpuscular Hgb Conc 33.1 g/dL (31-36); Mean Corpuscular Volume 88.2 fL (80-97); Mean Platelet Volume 8.6 fL (7.5-11.2); Platelet Count 243 10^3/uL (150-450); Red Blood Count 4.67 10^6/uL (4.06-5.63); Red Cell Distribution Width 17.7 % (12-17); White Blood Count 9.7 10^3/uL (3.6-10.2)
[2024-09-23] MEDS ORDERED: Vancomycin Random Level NOTE FOLLOW UP ONE (06:00)
[2024-09-23 06:38] LABS: C Reactive Protein 32.93 mg/L (<8.01); Calcium 8.3 mg/dL (8.6-10.3); Creatinine, Serum 1.17 mg/dL (0.67-1.17); Potassium 5.2 mmol/L (3.5-5.0); Vancomycin Random 15.7 mcg/mL; eGFR CKD-EPI 72.7 (>60)
[2024-09-23] MEDS: Furosemide 20 mg/2 ml IV VIAL IV ONE (08:29)
[2024-09-23] MEDS ORDERED: Vancomycin 750 MG in NS 0.9% 250 ML IVPB ONE (09:00)
[2024-09-25] MEDS ORDERED: Vancomycin Random Level NOTE FOLLOW UP ONE (06:00)
== END 2024-09-23 09:48 | disposition left against medical advice (07) ==
LOC: MEDTELE → SUATTDRO 09:53 → MEDTELE 10:56
PROVIDERS: ADMIT Nurse Practitioner Family; ATTEND Hospitalist

== ENCOUNTER 2024-09-23 23:06 | Inpatient (IN) ==
[2024-09-23] MEDS ORDERED: Dextrose 50% Syringe 50 ml 25 GM/50 ML SYRINGE ONE (23:11)
[2024-09-24] MEDS: Dextrose 50% Syringe 50 ml 25 GM/50 ML SYRINGE IV PUSH ONE (00:06)
[2024-09-24 00:13] LABS: ABS Lymphocytes 0.8 10^3/uL (1.0-4.8); ABS Neutrophils 8.6 10^3/uL (1.5-7.6); ABS Nucleated RBC 0.01 10^3/ul; Hemoglobin 13.9 g/dL (13.2-16.3); Lymphocyte % 7.8 %; Mean Corpuscular Hemoglobin 28.9 pg (27-33); Mean Corpuscular Hgb Conc 30.8 g/dL (31-36); Mean Platelet Volume 9.4 fL (7.5-11.2); Nucleated Red Blood Cells % 0.1 %/100WBC (0.0-0.8); Platelet Count 298 10^3/uL (150-450); Red Blood Count 4.79 10^6/uL (4.06-5.63); Red Cell Distribution Width 18.8 % (12-17); White Blood Count 10.4 10^3/uL (3.6-10.2)
[2024-09-24] MEDS: Lactated Ringers 1000 ml BAG 1,000 ML IV ONE ×3 (00:21→05:33)
[2024-09-24 00:50] LABS: Albumin 3.3 g/dL (3.5-5.7); Albumin/Globulin Ratio 0.9 (1-3); Calcium 8.9 mg/dL (8.6-10.3); Creatinine, Serum 1.59 mg/dL (0.67-1.17); Globulin 3.7 g/dL (2-4); Magnesium 2.2 mg/dL (1.9-2.7); Potassium 5.3 mmol/L (3.5-5.0); Total Bilirubin 2.4 mg/dL (0.2-1.0); eGFR CKD-EPI 50.3 (>60)
[2024-09-24 01:58] LABS: Urine Appearance Clear; Urine Bilirubin Negative (Negative); Urine Blood 2+ (Negative); Urine Color Yellow; Urine Glucose 4+ (>=1000 mg/dL) (Negative); Urine Ketones 1+ (Negative); Urine Nitrite Negative (Negative); Urine Protein 1+ (>=30 mg/dL) (Negative); Urine Specific Gravity 1.019 (1.002-1.030); Urine Urobilinogen Negative (Negative)
[2024-09-24 02:07] LABS: Urine Bacteria Absent /HPF (Absent); Urine Red Blood Cell 3+(>10/hpf) /HPF (0-Trace); Urine White Blood Cell Trace(0-5/hpf) /HPF (0-Trace)
[2024-09-24 02:54] LABS: Anion Gap 20 mmol/L (2-16); Blood Urea Nitrogen 49 mg/dL (6-24); CO2 Carbon Dioxide 17 mmol/L (22-32); Calcium 8.8 mg/dL (8.6-10.3); Chloride 97 mmol/L (101-111); Creatine Kinase 129 U/L (10-223); Creatinine, Serum 1.49 mg/dL (0.67-1.17); Glucose 168 mg/dL (70-100); Sodium 134 mmol/L (135-145); eGFR CKD-EPI 54.4 (>60)
[2024-09-24 07:09] LABS: Venous Bicarbonate HCO3 20.7 mmol/L (24-28)
[2024-09-24 07:43] LABS: Anion Gap 15 mmol/L (2-16); Blood Urea Nitrogen 43 mg/dL (6-24); CO2 Carbon Dioxide 22 mmol/L (22-32); Calcium 8.6 mg/dL (8.6-10.3); Chloride 100 mmol/L (101-111); Creatinine, Serum 1.31 mg/dL (0.67-1.17); Glucose 156 mg/dL (70-100); Potassium 4.8 mmol/L (3.5-5.0); Sodium 137 mmol/L (135-145); eGFR CKD-EPI 63.5 (>60)
[2024-09-24] MEDS: Vancomycin 1,500 MG in NS 0.9% 250 ml 250 ML IVPB ONE (09:01)
[2024-09-24 11:35] LABS: Urine Benzodiazepine Screen None Detected (None Detect); Urine Cannabinoids Screen None Detected (None Detect); Urine Opiates Screen Presumptive Positive (None Detect)
[2024-09-24] MEDS ORDERED: Dextrose 50% Syringe 50 ml 25 GM/50 ML SYRINGE IV PUSH PRN (11:58)
[2024-09-24] MEDS: Nicotine PATCH 14 MG/24 HR PATCH TRANSDERM SCH (13:22)
[2024-09-24] MEDS ORDERED: Vancomycin 1,000 MG in NS 0.9% 250 ml 250 ML IVPB ONE ×2 (14:48→17:00)
[2024-09-24] MEDS ORDERED: Vancomycin per Pharmacy 1 EA NOTE FOLLOW UP SCH (15:00)
[2024-09-24 15:15] LABS: Potassium, Whole Blood 4.9 mmol/L (3.4-4.5)
[2024-09-24 16:06] LABS: Alcohol, S < 13 mg/dL (<13)
[2024-09-25] MEDS: Vancomycin 750 MG in NS 0.9% 250 ML IVPB ONE (15:30)
[2024-09-25 18:06] LABS: ABS Basophils 0.2 10^3/uL (0.0-0.1); ABS Eosinophils 0.1 10^3/uL (0.0-0.5); ABS Lymphocytes 2.2 10^3/uL (1.0-4.8); ABS Monocytes 1.6 10^3/uL (0.0-1.1); ABS Neutrophils 8.9 10^3/uL (1.5-7.6); ABS Nucleated RBC 0.01 10^3/ul; Eosinophil % 0.8 %; Hematocrit 45.2 % (38-53); Hemoglobin 14.2 g/dL (13.2-16.3); Lymphocyte % 17.2 %; Mean Corpuscular Hemoglobin 28.5 pg (27-33); Mean Corpuscular Hgb Conc 31.5 g/dL (31-36); Mean Corpuscular Volume 90.4 fL (80-97); Mean Platelet Volume 8.3 fL (7.5-11.2); Nucleated Red Blood Cells % 0.1 %/100WBC (0.0-0.8); Platelet Count 206 10^3/uL (150-450); White Blood Count 12.9 10^3/uL (3.6-10.2)
[2024-09-25 18:51] LABS: Blood Urea Nitrogen 36 mg/dL (6-24); CO2 Carbon Dioxide 23 mmol/L (22-32); Calcium 8.9 mg/dL (8.6-10.3); Chloride 109 mmol/L (101-111); Creatinine, Serum 1.07 mg/dL (0.67-1.17); Glucose 62 mg/dL (70-100); Magnesium 2.1 mg/dL (1.9-2.7); Sodium 136 mmol/L (135-145); eGFR CKD-EPI 80.9 (>60)
[2024-09-25 18:53] LABS: Vancomycin Random 37.9 mcg/mL
[2024-09-25 18:54] LABS: Anion Gap 4 mmol/L (2-16)
[2024-09-25 19:04] LABS: Anisocytosis 1+; Polychromasia 1+; Target Cells 1+
[2024-09-25] MEDS: Vancomycin Random Level NOTE FOLLOW UP ONE (19:29)
[2024-09-26] MEDS: NS 0.9% 500 ml BAG 500 ML IV ONE (02:59)
[2024-09-26] MEDS: Mometasone/Formoter 100/5 MDI INH PRN (08:17)
[2024-09-26] MEDS: Albuterol HFA INHALER 8 gm MDI INH PRN (08:22)
[2024-09-26] MEDS: Vancomycin 500 MG in NS 0.9% 250 ML IVPB ONE (16:18)
[2024-09-26 18:41] LABS: ABS Basophils 0.1 10^3/uL (0.0-0.1); ABS Eosinophils 0.3 10^3/uL (0.0-0.5); ABS Lymphocytes 2.4 10^3/uL (1.0-4.8); ABS Monocytes 1.2 10^3/uL (0.0-1.1); ABS Neutrophils 9.9 10^3/uL (1.5-7.6); ABS Nucleated RBC 0.01 10^3/ul; Eosinophil % 2.1 %; Hematocrit 50.6 % (38-53); Hemoglobin 15.8 g/dL (13.2-16.3); Lymphocyte % 17.3 %; Mean Corpuscular Hemoglobin 28.2 pg (27-33); Mean Corpuscular Hgb Conc 31.2 g/dL (31-36); Mean Corpuscular Volume 90.6 fL (80-97); Mean Platelet Volume 8.7 fL (7.5-11.2); Nucleated Red Blood Cells % 0.1 %/100WBC (0.0-0.8); Platelet Count 265 10^3/uL (150-450); Red Blood Count 5.59 10^6/uL (4.06-5.63); White Blood Count 13.9 10^3/uL (3.6-10.2)
[2024-09-26 18:59] LABS: ALT 89 U/L (7-52); Albumin 3.7 g/dL (3.5-5.7); Albumin/Globulin Ratio 0.9 (1-3); Alkaline Phosphatase 141 U/L (35-149); Anion Gap 10 mmol/L (2-16); Blood Urea Nitrogen 38 mg/dL (6-24); CO2 Carbon Dioxide 20 mmol/L (22-32); Calcium 8.6 mg/dL (8.6-10.3); Chloride 106 mmol/L (101-111); Creatinine, Serum 1.25 mg/dL (0.67-1.17); Globulin 4.2 g/dL (2-4); Glucose 71 mg/dL (70-100); Sodium 136 mmol/L (135-145); Total Bilirubin 2.1 mg/dL (0.2-1.0); Total Protein 7.9 g/dL (6.4-8.9); eGFR CKD-EPI 67.2 (>60)
[2024-09-26] MEDS: DOBUTamine 2000 MCG/ML IVPREMX 500 MG/250 ML BAG IV ONE (19:05)
[2024-09-26] MEDS: DOBUTamine 2000 MCG/ML IVPREMX 500 MG/250 ML BAG IV SCH ×2 (19:05→21:22)
[2024-09-26 19:38] LABS: PCO2 Arterial 35 mmHg (35-45); PO2 Arterial 254 mmHg (80-100)
[2024-09-26 20:03] LABS: Calcium 8.7 mg/dL (8.6-10.3); Creatinine, Serum 1.22 mg/dL (0.67-1.17); Potassium 5.3 mmol/L (3.5-5.0); Potassium Redraw 5.3 mmol/L (3.5-5.0); eGFR CKD-EPI 69.1 (>60)
[2024-09-26] MEDS: Furosemide 40 mg/4 ml IV VIAL IV SLOW PU ONE (20:22)
[2024-09-27 00:26] LABS: PCO2 Arterial 36 mmHg (35-45); PO2 Arterial 251 mmHg (80-100)
[2024-09-27 04:46] LABS: Hematocrit 42.6 % (38-53); Hemoglobin 13.6 g/dL (13.2-16.3); Mean Corpuscular Hemoglobin 28.2 pg (27-33); Mean Corpuscular Hgb Conc 31.9 g/dL (31-36); Mean Corpuscular Volume 88.4 fL (80-97); Mean Platelet Volume 8.7 fL (7.5-11.2); Platelet Count 220 10^3/uL (150-450); Red Blood Count 4.82 10^6/uL (4.06-5.63); Red Cell Distribution Width 18.1 % (12-17); White Blood Count 10.3 10^3/uL (3.6-10.2)
[2024-09-27 05:19] LABS: Calcium 8.3 mg/dL (8.6-10.3); Creatinine, Serum 1.16 mg/dL (0.67-1.17); Magnesium 1.9 mg/dL (1.9-2.7); Potassium 4.5 mmol/L (3.5-5.0); Vancomycin Random 19.9 mcg/mL; eGFR CKD-EPI 73.5 (>60)
[2024-09-27] MEDS: Vancomycin Random Level NOTE FOLLOW UP ONE (06:20)
[2024-09-27 10:06] LABS: Urine Benzodiazepine Screen None Detected (None Detect); Urine Cannabinoids Screen None Detected (None Detect); Urine Opiates Screen None Detected (None Detect)
[2024-09-27] MEDS: Al Hydrox/Mg Hydrox/Simet LIQ 30 ML UDC PO ONE (10:11)
[2024-09-27] MEDS: Furosemide 40 mg/4 ml IV VIAL IV ONE (13:35)
[2024-09-27] MEDS: Vancomycin 500 MG in NS 0.9% 250 ML IVPB SCH (16:53)
[2024-09-27 17:38] LABS: Blood Urea Nitrogen 40 mg/dL (6-24); CO2 Carbon Dioxide 26 mmol/L (22-32); Calcium 7.8 mg/dL (8.6-10.3); Chloride 101 mmol/L (101-111); Creatinine, Serum 1.16 mg/dL (0.67-1.17); Glucose 188 mg/dL (70-100); Sodium 136 mmol/L (135-145); eGFR CKD-EPI 73.5 (>60)
[2024-09-27 17:42] LABS: Anion Gap 9 mmol/L (2-16)
[2024-09-28 05:16] LABS: ABS Basophils 0.1 10^3/uL (0.0-0.1); ABS Eosinophils 0.3 10^3/uL (0.0-0.5); ABS Lymphocytes 2.5 10^3/uL (1.0-4.8); ABS Monocytes 1.4 10^3/uL (0.0-1.1); ABS Neutrophils 8.4 10^3/uL (1.5-7.6); ABS Nucleated RBC 0.02 10^3/ul; Eosinophil % 2.5 %; Hematocrit 52.3 % (38-53); Hemoglobin 16.6 g/dL (13.2-16.3); Lymphocyte % 19.5 %; Mean Corpuscular Hemoglobin 28.7 pg (27-33); Mean Corpuscular Hgb Conc 31.7 g/dL (31-36); Mean Corpuscular Volume 90.6 fL (80-97); Mean Platelet Volume 8.6 fL (7.5-11.2); Nucleated Red Blood Cells % 0.1 %/100WBC (0.0-0.8); Platelet Count 199 10^3/uL (150-450); Red Blood Count 5.78 10^6/uL (4.06-5.63); Red Cell Distribution Width 19.1 % (12-17); White Blood Count 12.6 10^3/uL (3.6-10.2)
[2024-09-28 05:46] LABS: Potassium 5.1 mmol/L (3.5-5.0)
[2024-09-28 05:47] LABS: Calcium 8.7 mg/dL (8.6-10.3); Creatinine, Serum 1.18 mg/dL (0.67-1.17)
[2024-09-28 13:15] LABS: Digoxin 0.7 ng/ml (0.8-2.0)
[2024-09-28] MEDS: Vancomycin Trough Check NOTE FOLLOW UP ONE (18:01)
[2024-09-29 05:52] LABS: ABS Basophils 0.1 10^3/uL (0.0-0.1); ABS Eosinophils 0.2 10^3/uL (0.0-0.5); ABS Lymphocytes 1.7 10^3/uL (1.0-4.8); ABS Neutrophils 7.3 10^3/uL (1.5-7.6); ABS Nucleated RBC 0.01 10^3/ul; Eosinophil % 2.3 %; Hematocrit 49.4 % (38-53); Hemoglobin 15.7 g/dL (13.2-16.3); Lymphocyte % 16.6 %; Mean Corpuscular Hemoglobin 28.3 pg (27-33); Mean Corpuscular Hgb Conc 31.8 g/dL (31-36); Mean Corpuscular Volume 89.1 fL (80-97); Mean Platelet Volume 8.6 fL (7.5-11.2); Nucleated Red Blood Cells % 0.1 %/100WBC (0.0-0.8); Platelet Count 219 10^3/uL (150-450); Red Blood Count 5.54 10^6/uL (4.06-5.63); Red Cell Distribution Width 18.2 % (12-17); White Blood Count 10.4 10^3/uL (3.6-10.2)
[2024-09-29 06:24] LABS: Calcium 8.7 mg/dL (8.6-10.3); Creatinine, Serum 1.19 mg/dL (0.67-1.17); Potassium 4.8 mmol/L (3.5-5.0); Vancomycin Trough 22.4 mcg/mL; eGFR CKD-EPI 71.2 (>60)
[2024-09-29] MEDS: Vancomycin Trough Check NOTE FOLLOW UP ONE (06:39)
[2024-09-29] MEDS: Vancomycin 500 MG in NS 0.9% 250 ML IVPB SCH (07:42)
[2024-09-30 07:45] LABS: ABS Basophils 0.1 10^3/uL (0.0-0.1); ABS Eosinophils 0.2 10^3/uL (0.0-0.5); ABS Lymphocytes 1.6 10^3/uL (1.0-4.8); ABS Monocytes 0.8 10^3/uL (0.0-1.1); ABS Neutrophils 7.2 10^3/uL (1.5-7.6); ABS Nucleated RBC 0.01 10^3/ul; Eosinophil % 2.4 %; Hematocrit 40.4 % (38-53); Hemoglobin 13.5 g/dL (13.2-16.3); Lymphocyte % 15.6 %; Mean Corpuscular Hemoglobin 28.8 pg (27-33); Mean Corpuscular Hgb Conc 33.4 g/dL (31-36); Mean Corpuscular Volume 86.3 fL (80-97); Mean Platelet Volume 8.5 fL (7.5-11.2); Nucleated Red Blood Cells % 0.1 %/100WBC (0.0-0.8); Platelet Count 186 10^3/uL (150-450); Red Blood Count 4.68 10^6/uL (4.06-5.63); Red Cell Distribution Width 18.1 % (12-17); White Blood Count 9.9 10^3/uL (3.6-10.2)
[2024-09-30] MEDS: Vancomycin Random Level NOTE FOLLOW UP ONE (08:22)
[2024-09-30 08:48] LABS: Calcium 8.1 mg/dL (8.6-10.3); Creatinine, Serum 1.15 mg/dL (0.67-1.17); Magnesium 1.9 mg/dL (1.9-2.7); eGFR CKD-EPI 74.2 (>60)
[2024-10-01 13:24] LABS: Hematocrit 41.9 % (38-53); Hemoglobin 13.6 g/dL (13.2-16.3); Mean Corpuscular Hemoglobin 28.5 pg (27-33); Mean Corpuscular Hgb Conc 32.6 g/dL (31-36); Mean Corpuscular Volume 87.5 fL (80-97); Mean Platelet Volume 8.6 fL (7.5-11.2); Platelet Count 212 10^3/uL (150-450); Red Blood Count 4.78 10^6/uL (4.06-5.63); Red Cell Distribution Width 18.1 % (12-17); White Blood Count 10.3 10^3/uL (3.6-10.2)
[2024-10-01 13:58] LABS: Albumin 3.1 g/dL (3.5-5.7); Albumin/Globulin Ratio 0.9 (1-3); Calcium 8.2 mg/dL (8.6-10.3); Creatinine, Serum 1.32 mg/dL (0.67-1.17); Globulin 3.6 g/dL (2-4); Potassium 4.6 mmol/L (3.5-5.0); Total Bilirubin 1.8 mg/dL (0.2-1.0); Total Protein 6.7 g/dL (6.4-8.9); eGFR CKD-EPI 62.9 (>60)
[2024-10-01 14:08] LABS: ABS Basophils 0.1 10^3/uL (0.0-0.1); ABS Eosinophils 0.3 10^3/uL (0.0-0.5); ABS Lymphocytes 1.7 10^3/uL (1.0-4.8); ABS Monocytes 0.9 10^3/uL (0.0-1.1); ABS Neutrophils 7.3 10^3/uL (1.5-7.6); ABS Nucleated RBC 0.01 10^3/ul; Eosinophil % 2.6 %; Lymphocyte % 16.6 %; RBC Morphology Normal (Normal)
[2024-10-01 14:14] LABS: TSH Ultra Thyroid Stim Horm 1.71 mcIU/mL (0.34-5.60)
[2024-10-01 14:23] LABS: Folate 18.32 ng/mL (5.90-24.80)
[2024-10-01 18:11] LABS: Free T4 1.26 ng/dL (0.61-1.12)
[2024-10-02 06:37] LABS: ABS Basophils 0.1 10^3/uL (0.0-0.1); ABS Eosinophils 0.2 10^3/uL (0.0-0.5); ABS Lymphocytes 1.5 10^3/uL (1.0-4.8); ABS Monocytes 0.8 10^3/uL (0.0-1.1); ABS Neutrophils 4.9 10^3/uL (1.5-7.6); ABS Nucleated RBC 0.02 10^3/ul; Eosinophil % 2.7 %; Hematocrit 45.5 % (38-53); Hemoglobin 14.5 g/dL (13.2-16.3); Lymphocyte % 20.6 %; Mean Corpuscular Volume 87.8 fL (80-97); Mean Platelet Volume 8.6 fL (7.5-11.2); Nucleated Red Blood Cells % 0.2 %/100WBC (0.0-0.8); Platelet Count 200 10^3/uL (150-450); Red Blood Count 5.19 10^6/uL (4.06-5.63); Red Cell Distribution Width 18.5 % (12-17); White Blood Count 7.5 10^3/uL (3.6-10.2)
[2024-10-02 08:51] LABS: C Reactive Protein 17.17 mg/L (<8.01); Calcium 8.4 mg/dL (8.6-10.3); Creatinine, Serum 1.14 mg/dL (0.67-1.17); Potassium 4.8 mmol/L (3.5-5.0)
[2024-10-02] MEDS: Vancomycin Trough Check NOTE FOLLOW UP ONE (08:56)
[2024-10-02 09:27] VITALS: BP 127/106
[2024-10-02 09:40] LABS: Urine Appearance Clear; Urine Bacteria Absent /HPF (Absent); Urine Bilirubin Negative (Negative); Urine Blood 1+ (Negative); Urine Color Yellow; Urine Glucose 4+ (>=1000 mg/dL) (Negative); Urine Ketones Negative (Negative); Urine Nitrite Negative (Negative); Urine Protein Negative (Negative); Urine Red Blood Cell 2+(6-10/hpf) /HPF (0-Trace); Urine Urobilinogen 1+ (Negative); Urine White Blood Cell Trace(0-5/hpf) /HPF (0-Trace); Urine pH 5.5 (5.0-8.0)
[2024-10-08 14:17] LABS: Amphetamines Screen Blood None Detected; Fentanyl/Acetyl FentanylScreen None Detected; Methamphetamines/MDMA Screen None Detected; Opiates Screen Blood None Detected; Oxycodone/Oxymorphone Scrn Bl None Detected; Phencyclidine Screen Blood None Detected
[2024-10-09 08:57] LABS: 11-Hydroxy Delta-9 THC None Detected; Benzoylecgonine 100 ng/mL; Cocaethylene None Detected; Cocaine None Detected; Delta-9 Carboxy THC None Detected; Delta-9 THC None Detected; EDDP Confirm None Detected; Methadone 190 ng/mL
== END 2024-10-02 10:15 | disposition home or self-care (01) | DRG 720 ==
LOC: EDHOLD 23:06 → ED 23:06 → MED 09-24 12:12 → ICU 09-26 18:55 → MED 09-28 08:25
PROVIDERS: ADMIT Student in an Organized Health Care Education/Training Program; ATTEND Internal Medicine